=== PATIENT | female | born 1935 | race Caucasian/White ===

== ENCOUNTER 2018-01-26 13:41 | Inpatient (IN) | payer SELFPAY ==
[~2018-01-26] VITALS: Ht 147.3 cm; Wt 38.2 kg
[~2018-01-26 13:41] MED LIST: ASPIR-TRIN325 MG PO; ASPIRIN EC81 M1 PO; BIOTIN300 MC1 PO; CENTRUM1 TA1 PO; FENOFIBRATE145 M1 PO; FISH OIL 500 M1 EAC1 PO; FOLIC ACID 1 MG PO; FOLIC ACID0.8 M2 PO; FUROSEMIDE20 M1 PO; GLUCOSAMINE &1 EAC1 PO; LEVSIN-SL0.125 MG SL; LIDODERM1 EACH TOP; LOPRESSOR 25MG25 MG PO; LOVASTATIN40 M1 PO; MAALOX MAXIMUM355 ML PO; MAGNESIUM OXID400 MG PO; MAGNESIUM250 M2 PO; MASON NATURAL325 MG PO; METOPROLOL TART25 M1 PO; MIRALAX17 GM PO; MOBIC7.5 M1 PO; NAPROSYN500 M1 PO; NATURAL IRON65 MG PO; OMEPRAZOLE20 M2 PO; RECLAST 55 MG/100 M IV; TYLENOL EXTRA500 M2 PO; TYLENOL325 M1 PO; ULTRAM50 M1 PO; VITAMIN C100 M2 PO; VITAMIN C500 M3 PO; VITAMIN D250000 UNIT PO; VITAMIN D32000 UNI1 PO; VITAMIN D50000 IU PO
--- NOTE | 2018-01-26 15:20 | ED NECK/BACK PAIN COMPLAINT ---
History of Present Illness General Chief Complaint: General Adult Stated Complaint: LOWER BACK PAIN RADIATING TO R HIP Source: patient, old records Exam Limitations: poor historian Vital Signs & Intake/Output Vital Signs & Intake/Output Vital Signs Date Time Temp Pulse Resp B/P B/P Pulse O2 O2 Flow FiO2 Mean Ox Delivery Rate 01/26 2238 98.8 69 18 113/57 91 01/26 1930 98.3 70 18 106/54 92 01/26 1345 98.8 72 18 130/59 91 Allergies Coded Allergies: gluten (CELIAC 05/10/17) phenobarbital (HIVES 05/10/17) Reconcile Medications Ascorbic Acid (Vitamin C) (Unknown Strength) TABLET (Unknown Dose) PO DAILY SUPPLEMENT (Reported) Aspirin (Ecotrin*) 81 MG TABLET.DR 1 TAB PO BID HEART HEALTH (Reported) Biotin 300 MCG TABLET 1 TAB PO DAILY SUPPLEMENT (Reported) Cholecalciferol (Vitamin D3) (Vitamin D3) 2,000 UNIT TABLET 1 TAB PO DAILY VITAMIN SUPPORT (Reported) Ergocalciferol (Vitamin D2) (Vitamin D2) 50,000 UNIT CAPSULE 1 CAP PO QTUES SUPPLEMENT (Reported) Fenofibrate Nanocrystallized (Fenofibrate) 145 MG TABLET 1 TAB PO DAILY TRIGLYCERIDES (Reported) Folic Acid 0.8 MG TABLET 1 TAB PO DAILY SUPPLEMENT (Reported) Furosemide 20 MG TABLET 1 TAB PO BID WATER RETENTION (Reported) Gluc 2KCL/Chondr/Antonio Hy/Hy AC (Glucosamine & Chondroitin Cap) 375 MG-300 MG-175 MG-2 MG CAPSULE 1 TAB PO BID SUPPLEMENT (Reported) Hyoscyamine Sulfate (Levsin-Sl) 0.125 MG TAB.SUBL 1-2 TAB SL Q4P PRN abdominal pain Lidocaine (Lidoderm) 5 % ADH..PATCH 1 PAT TOP DAILY PRN back pain may wear up to 12 hours Lovastatin 40 MG TABLET 1 TAB PO DAILY CHOLESTEROL (Reported) with food Mag Hydrox/Al Hydrox/Simeth (Maalox Maximum Strength Susp) 400 MG-400 MG-40 MG/5 ML ORAL.SUSP 15 ML PO Q4P PRN abdominal pain Magnesium Oxide (Magnesium) 250 MG TABLET 1 TAB PO BID SUPPLEMENT (Reported) Metoprolol Tartrate 25 MG TABLET 1 TAB PO BID HEART (Reported) Naproxen (Naprosyn) 500 MG TABLET 1 TAB PO BID PRN back pain [place]-3/Dha/Epa/Fish Oil (Fish Oil 500 MG Softgel) 60 MG-90 MG-500 MG CAPSULE 1 CAP PO DAILY SUPPLEMENT (Reported) Omeprazole 20 MG CAPSULE.DR 1 CAP PO DAILY GI (Reported) Zoledronic Acid (Reclast 5 MG/100 Ml Solution) 5 MG/100 ML INFUS..BTL 1 INJ IV Q365D BONE STRENGTH (Reported) Triage Note: RECEIVED 82 YO FEMALE MALIK FROM HOME. PT RETURNS TODAY WITH REPORT OF MID LOWER BACK PAIN RADIATING TO RIGHT HIP. PT WAS HERE TWICE LAST WEEK FOR SAME AND PRESCRIBED TRAMADOL FOR PAIN WITH SOME RELIEF OF PAIN. PT REPORTS DIFFICULTY GETTING OOB THIS AM. PT REPORTS NO PAIN LYING DOWN, ONLY UPON MOVEMENT OR ATTEMPTIN G TO GET UP. PT USES WALKER FOR AMBULATION. Triage Nurses Notes Reviewed? yes HPI: Patient presents for evaluation of an exacerbation of back pain secondary to compression fractures. Patient states that she was recently in the emergency department for a day for back pain. She is taking narcotic pain relievers but states she is still having the pain to the point where she feels unable to ambulate due to the risk of falling. She is not sure if she might need a rehabilitation program. (Irma RODRIGUEZ,Juwan Sheldon) Past History Travel History Traveled to [place] past 21 day No Medical History Any Pertinent Medical History? see below for history Neurological: dizziness EENT: cataracts (extraction) Cardiovascular: CAD (with coronary fistula), hyperlipidemia, post-operative CO Respiratory: NONE Gastrointestinal: upper GI bleed, diverticulitis with perforation, colostomy and reversal Celiac disease/[place] Hepatic: NONE Renal: urinary tract infection with renolithiasis Musculoskeletal: osteoarthritis, OSTEOPOROSIS Psychiatric: NONE Endocrine: NONE Blood Disorders: NONE Cancer(s): NONE Other Medical Hx: umbilical hernia, questionable history of blood clots History of MRSA: No History of VRE: No History of CDIFF: No Surgical History Surgical History: cholecystectomy, COLOSTOMY WITH REVERSAL bladder procedure Psychosocial History Who do you live with Family Services at Home None What is your primary language Citizen [place] Tobacco Use: Never used Family History Hx Contributory? No (Irma RODRIGUEZ,Juwan Sheldon) Review of Systems Review of Systems Constitutional: Reports: no symptoms. Eyes: Reports: no symptoms. Ears, Nose, Throat, Mouth: Reports: no symptoms. Respiratory: Reports: no symptoms. Cardiovascular: Reports: no symptoms. Gastrointestinal/Abdominal: Reports: no symptoms. Musculoskeletal: Reports: see HPI, back pain. Skin: Reports: no symptoms. Neurological/Psychological: Reports: no symptoms. All Other Systems: Reviewed and Negative (Irma RODRIGUEZ,Juwan Sheldon) Physical Exam Physical Exam Neck: see below Comments: Gen.: Well-nourished, well-developed, no acute respiratory distress. Head: Normocephalic, atraumatic. Eyes: Normal inspection bilaterally Ears: Normal inspection bilaterally Nose: Normal inspection Throat/mouth : Moist mucosa Neck: Supple, full range of motion, no goiter Heart: Regular rate and rhythm, no murmurs rubs or gallops Lungs: Clear to auscultation bilaterally with normal air entry Chest: Nontender Back: Normal range of motion, nontender Abdomen: Soft, nontender, nondistended, normal bowel sounds Extremities: Normal range of motion grossly, equal radial pulses, no cyanosis clubbing or edema, calves nontender, lower extremities are neurovascularly intact. No saddle paresthesias or straight leg raise sign. Neurologic: Cranial nerves grossly intact, speech is clear Skin: warm and dry Psychiatric: Calm, cooperative, no apparent delusions or hallucinations Core Measures CVA/TIA Diagnosis: No (Irma RODRIGUEZ,Juwan Sheldon) Progress Differential Diagnosis: cauda equina syn, herniated disc, myofascial strain, compression fractures, abdominal aortic aneurysm Plan of Care: Orders Procedure Date/time Status Regular Diet 01/27 B Active Regular Diet 01/26 D Complete Add-on Test (ER Only) 01/26 2331 Active EKG 01/26 2239 Active URINALYSIS 01/26 2053 Complete OXYGEN SETUP (GEN) 01/26 2047 Active Saline Lock 01/26 2047 Active Admit to inpatient 01/26 2047 Active Vital Signs 01/26 2047 Active Activity/Ambulation 01/26 2047 Active Code Status 01/26 2047 Active CBC WITHOUT DIFFERENTIAL 01/26 1738 Complete BASIC METABOLIC PANEL 01/26 1738 Complete PT Evaluate & Treat 01/26 1540 Active CASE MANAGEMENT CONSULT 01/26 1540 Active Current Medications Sig/Dillan Start time Last Medication Dose Stop Time Status Admin Ceftriaxone Sodium 1,000 MG ONCE ONE 01/26 2345 UNVr (Rocephin) 01/26 2346 Laboratory Tests 01/26/182054: Urine Color YEL, Urine Clarity CLDY H, Urine pH 7.0, Ur Specific Berger 1.015, Urine Protein NEG, Urine Ketones NEG, Urine Nitrite POS H, Urine Bilirubin NEG, Urine Urobilinogen 0.2, Ur Leukocyte Esterase LARGE H, Ur Microscopic SEDIMENT EXAMINED, Urine RBC 1-3, Urine WBC > 75 H, Ur Epithelial Cells FEW, Urine Crystals 1+ CA OX H, Urine Bacteria PACKD H, Urine Hemoglobin NEG, Urine Glucose NEG 01/26/18 1800: Anion Gap 4 L, Estimated GFR > 60, BUN/Creatinine Ratio 55.0 H, Glucose 98, Calcium 8.4, CBC w Diff NO MAN DIFF REQ, RBC 4.61, MCV 86.5, MCH 28.0, MCHC 32.3 L, RDW 31.3 H, MPV 8.5, Gran % 66.8, Lymphocytes % 20.3 L, Monocytes % 11.8 H, Eosinophils % 0.6, Basophils % 0.5, Absolute Granulocytes 3.6, Absolute Lymphocytes 1.1 L, Absolute Monocytes 0.6, Absolute Eosinophils 0, Absolute Basophils 0 Diagnostic Imaging: Discussed w/RAD: Radiology Read. Radiology Impression: PATIENT: JOO VICENTE PRESENT AGE: 82 PATIENT ACCOUNT NO: [id number] : 37 LOCATION: [facility] ORDERING PHYSICIAN: Juwan Solis MD SERVICE DATE: 01/26/18 EXAM TYPE: RAD - XRY-LUMBOSACRAL SPINE AP & LAT EXAMINATION: XR LUMBOSACRAL SPINE CLINICAL INFORMATION: Low back pain. COMPARISON: Lumbosacral spine radiographs dated . TECHNIQUE: 2 views of the lumbosacral spine were obtained. FINDINGS: There is again severe diffuse osteopenia limiting evaluation for fracture. Chronic L1 compression fracture is again noted. T10 compression fracture is again noted, not appreciably changed on better seen on the prior study. L4 compression fracture is again noted, not appreciably changed. There is axial joint space narrowing in the hips bilaterally. 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 Suture material is again noted and pelvis. IMPRESSION: 1. Limited evaluation of the setting of severe diffuse osteopenia. 2. No appreciable change in the recently identified T10 and L4 compression fractures nor the chronic L1 compression fracture. 3. Axial narrowing of the hip joints bilaterally with right hip protrusio acetabuli. Clinically correlation for underlying rheumatoid arthritis recommended. DICTATED BY: Raad Rajput MD DATE/TIME DICTATED:01/26/181824 SMALL APPLIANCE ASSEMBLY SUPERVISOR:KELVIN DATE/TIME TRANSCRIBED:01/26/181824 CONFIDENTIAL, DO NOT COPY WITHOUT APPROPRIATE AUTHORIZATION. <Electronically signed in Other Vendor System> SIGNED BY: Raad Rajput MD 01/26/18 2398 Comments: Patient had a CT scan with IV contrast late last year which showed no aortic disease. 01/26/2018 7:12:47 PM patient signed out to Dr. 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 (Irma RODRIGUEZ,Juwan Sheldon) Diagnostic Imaging: Viewed by Me: Radiology Read, CT Scan. Discussed w/RAD: Radiology Read, CT Scan. (Tonio Lala MD) Departure Departure Condition: Stable Referrals: Adriana RODRIGUEZ,James Marshall (PCP/Family) Departure Forms: Customer Survey General Discharge Information (Irma RODRIGUEZ,Juwan Sheldon) Departure Disposition: STILL A PATIENT Clinical Impression Primary Impression: Compression fracture Secondary Impressions: UTI (urinary tract infection) Admission Note Spoke With: Ashley Guevara MD Documentation of Exam: Documentation of any treatments & extenuating circumstances including Concerns Regarding Discharge (functional status, medication knowledge or non-compliance, living conditions, etc.) that warrant an admission rather than observation: Analgesia physical therapy spine evaluation medication adjustment ensure safety continuing care discharge planning (Tonio Lala MD)
[2018-01-26 18:13] LABS: ABSOLUTE BASOPHIL COUNT 0 /CUMM (0.0-0.2); ABSOLUTE EOSINOPHIL COUNT 0 /CUMM (0.0-0.7); ABSOLUTE GRANULOCYTE CT 3.6 /CUMM (1.4-6.5); ABSOLUTE LYMPH COUNT 1.1 /CUMM (1.2-3.4); ABSOLUTE MONOCYTE COUNT 0.6 /CUMM (0.10-0.60); BASOPHIL % 0.5 % (0.0-2.0); EOSINOPHIL % 0.6 % (0-5); GRANULOCYTE % 66.8 % (42.2-75.2); HEMATOCRIT 39.9 % (37-47); MEAN CORPUSCULAR HGB CONC 32.3 G/DL (33.0-37.0); MEAN CORPUSCULAR VOLUME 86.5 FL (81.0-99.0); MEAN PLATELET VOLUME 8.5 FL (7.4-10.4); PLATELET COUNT 289 /CUMM (130-400); RBC DISTRIBUTION WIDTH 31.3 % (11.5-14.5); RED BLOOD CELL CT 4.61 /CUMM (4.20-5.40); WHITE BLOOD CELL COUNT 5.4 /CUMM (4.8-10.8)
--- NOTE | 2018-01-26 18:34 | RADIOLOGY REPORT ---
EXAMINATION: XR LUMBOSACRAL SPINE CLINICAL INFORMATION: Low back pain. COMPARISON: Lumbosacral spine radiographs dated 01/24/2018. TECHNIQUE: 2 views of the lumbosacral spine were obtained. FINDINGS: There is again severe diffuse osteopenia limiting evaluation for fracture. Chronic L1 compression fracture is again noted. T10 compression fracture is again noted, not appreciably changed on better seen on the prior study. L4 compression fracture is again noted, not appreciably changed. There is axial joint space narrowing in the hips bilaterally. 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 Suture material is again noted and pelvis. IMPRESSION: 1. Limited evaluation of the setting of severe diffuse osteopenia. 2. No appreciable change in the recently identified T10 and L4 compression fractures nor the chronic L1 compression fracture. 3. Axial narrowing of the hip joints bilaterally with right hip protrusio acetabuli. Clinically correlation for underlying rheumatoid arthritis recommended.
--- NOTE | 2018-01-26 23:18 | CT SCAN REPORT ---
EXAMINATION: CT LUMBAR SPINE WITHOUT CONTRAST CLINICAL INFORMATION: Continued low back pain, difficulty ambulating. COMPARISON: Thoracic spine radiographs dated 01/24/2018 bone survey dated 11/20/2017. CT abdomen and pelvis dated 04/18/2014. TECHNIQUE: Helical non-contrast CT images were obtained through the lumbar spine and 0.625 and 2.5 mm axial reconstructions were reviewed along with sagittal and coronal MPRs. DLP: 139 mGy-cm FINDINGS: There is a redemonstrated chronic L1 compression deformity with stable associated mild focal kyphosis. There is right convex L4 compression deformity which is new from 04/17/2017 but was likely present on the 11/20/2017 bone survey as well as on the more recent 01/24/2018 lumbar spine radiographs. Allowing for comparison across modalities this appears probably stable. There is 65% vertebral body height loss centrally. No paravertebral soft tissue hematoma. A partially visualized exophytic right superior pole lesion is stable from 2013. No hydronephrosis. Diffuse atherosclerotic vascular calcification is noted within the ectatic abdominal aorta. There is mild spinal canal narrowing at L1-L2 bony retropulsion which is stable. There is retropulsion of the superior L4 endplate centrally which also results in mild spinal canal narrowing, new from 04/17/2017. IMPRESSION: 1. Stable chronic L1 compression deformity with mild associated focal kyphosis and bony retropulsion resulting in mild spinal canal narrowing. 2. Biconcave L4 compression deformity with 65% vertebral body height loss centrally. While new from 04/17/2017 and this is likely stable compared with the 11/20/2017 bone survey radiograph allowing for differences between modalities. No paravertebral soft tissue hematoma to suggest an acute fracture. 3. There is mild spinal canal narrowing associated with the L4 compression deformity secondary to retropulsion of the superior L4 endplate centrally.
--- NOTE | 2018-01-26 23:42 | History & Physical ---
Yamilet RODRIGUEZ,Juan 01/26/18 1038: General Information and HPI MD Statement: I have seen and personally examined JOO VICENTE and documented this H&P. The patient is a 82 year old F who presented with a patient stated chief complaint of [intractable back pain]. Source of Information: patient, old records Exam Limitations: poor historian History of Present Illness: Patient is a 89-year-old female with a PMH significant for HTN, HLD, celiac disease, Waldenstrm's macroglobulinemia follows with Dr. Hannah, osteoporosis with multiple osteoporotic vertebral compression fractures, who presents to the [facility] ED complaining of intractable lower back pain. Patient states that she has had chronic back pain mostly mid back pain for the past 67 years. Recently she began developing severe lower back pain as well. She was seen in the [facility] ED 2 days prior to presentation and was sent home with a Lidoderm patch and naproxen. She states that her pain was not well controlled over the past day and that she had been having visual hallucinations which she believes is secondary to her new medication. She states that her back pain is sharp and at most was a 9/10, however it was intermittent. She remains able to ambulate with her walker. She denies any radiation of her pain to her legs, and denies any neurologic symptoms including including numbness, paresthesias, weakness. Allergies/Medications Allergies: Coded Allergies: gluten (CELIAC 05/10/17) phenobarbital (HIVES 05/10/17) Home Med list Ascorbic Acid (Vitamin C) (Unknown Strength) TABLET (Unknown Dose) PO DAILY SUPPLEMENT (Reported) Aspirin (Ecotrin*) 81 MG TABLET.DR 1 TAB PO BID HEART HEALTH (Reported) Biotin 300 MCG TABLET 1 TAB PO DAILY SUPPLEMENT (Reported) Cholecalciferol (Vitamin D3) (Vitamin D3) 2,000 UNIT TABLET 1 TAB PO DAILY VITAMIN SUPPORT (Reported) Ergocalciferol (Vitamin D2) (Vitamin D2) 50,000 UNIT CAPSULE 1 CAP PO QTUES SUPPLEMENT (Reported) Fenofibrate Nanocrystallized (Fenofibrate) 145 MG TABLET 1 TAB PO DAILY TRIGLYCERIDES (Reported) Folic Acid 0.8 MG TABLET 1 TAB PO DAILY SUPPLEMENT (Reported) Furosemide 20 MG TABLET 1 TAB PO BID WATER RETENTION (Reported) Gluc 2KCL/Chondr/Antonio Hy/Hy AC (Glucosamine & Chondroitin Cap) 375 MG-300 MG-175 MG-2 MG CAPSULE 1 TAB PO BID SUPPLEMENT (Reported) Hyoscyamine Sulfate (Levsin-Sl) 0.125 MG TAB.SUBL 1-2 TAB SL Q4P PRN abdominal pain Lidocaine (Lidoderm) 5 % ADH..PATCH 1 PAT TOP DAILY PRN back pain may wear up to 12 hours Lovastatin 40 MG TABLET 1 TAB PO DAILY CHOLESTEROL (Reported) with food Mag Hydrox/Al Hydrox/Simeth (Maalox Maximum Strength Susp) 400 MG-400 MG-40 MG/5 ML ORAL.SUSP 15 ML PO Q4P PRN abdominal pain Magnesium Oxide (Magnesium) 250 MG TABLET 1 TAB PO BID SUPPLEMENT (Reported) Metoprolol Tartrate 25 MG TABLET 1 TAB PO BID HEART (Reported) Naproxen (Naprosyn) 500 MG TABLET 1 TAB PO BID PRN back pain [place]-3/Dha/Epa/Fish Oil (Fish Oil 500 MG Softgel) 60 MG-90 MG-500 MG CAPSULE 1 CAP PO DAILY SUPPLEMENT (Reported) Omeprazole 20 MG CAPSULE.DR 1 CAP PO DAILY GI (Reported) Zoledronic Acid (Reclast 5 MG/100 Ml Solution) 5 MG/100 ML INFUS..BTL 1 INJ IV Q365D BONE STRENGTH (Reported) Past History Travel History Traveled to [place] past 21 day No Medical History Neurological: dizziness EENT: cataracts (extraction) Cardiovascular: CAD (with coronary fistula), hyperlipidemia, post-operative AL Respiratory: NONE Gastrointestinal: upper GI bleed, diverticulitis with perforation, colostomy and reversal Celiac disease/Sprue Hepatic: NONE Renal: urinary tract infection with renolithiasis Musculoskeletal: osteoarthritis, OSTEOPOROSIS Psychiatric: NONE Endocrine: NONE Blood Disorders: NONE Cancer(s): NONE Other Medical Hx: umbilical hernia, questionable history of blood clots History of MRSA: No History of VRE: No History of CDIFF: No Surgical History Surgical History: cholecystectomy, COLOSTOMY WITH REVERSAL bladder procedure Past Family/Social History Family History Relations & Conditions if any Relation not specified for: *No pertinent family history Psychosocial History Where do you live? Home Who Do You Live With? spouse Services at Home: None Primary Language: Estonian Smoking Status: Never Smoked ETOH Use: denies use Illicit Drug Use: denies illicit drug use Functional Ability Ambulation: walker Review of Systems Review of Systems Constitutional: Denies: chills, diaphoresis, fever. EENTM: Denies: blurred vision, double vision, visual changes. Cardiovascular: Denies: chest pain, palpitations, syncope. Respiratory: Denies: cough, short of breath. GI: Denies: abdominal pain, distention, melena, nausea, vomiting. Genitourinary: Denies: dysuria, frequency, hematuria. Musculoskeletal: Reports: see HPI, back pain. Skin: Reports: no symptoms. Neurological/Psychological: Denies: numbness, paresthesia, tingling, weakness. Exam & Diagnostic Data Last 24 Hrs of Vital Signs/I&O Vital Signs Date Time Temp Pulse Resp B/P B/P Pulse O2 O2 Flow FiO2 Mean Ox Delivery Rate 01/27 0110 97.6 65 20 108/47 91 Room Air 01/26 2350 98.6 81 16 115/59 93 Room Air 01/26 2238 98.8 69 18 113/57 91 01/26 1930 98.3 70 18 106/54 92 01/26 1345 98.8 72 18 130/59 91 Intake & Output 01/27 0800 01/27 0000 01/26 1600 Intake Total 320 Output Total Balance 320 Intake, Oral 320 Patient 82 lb 3.01 oz 79 lb 15.99 oz Weight Weight Bed scale Estimated Measurement Method Physical Exam General Appearance Alert, Oriented X3, Cooperative Skin Temp/Moisture Exam: Warm/Dry Sepsis Skin Exam (color): Normal for Ethnicity HEENT abrasion on the nose, pt reports scratching as a nervous habit Cardiovascular Regular Rate, Normal S1, Normal S2 Lungs Clear to Auscultation, Normal Air Movement Abdomen Normal Bowel Sounds, Soft, No Tenderness Neurological Normal Speech, Strength at 5/5 X4 Ext, Normal Tone, Sensation Intact, Cranial Nerves 3-12 NL Extremities No Clubbing, No Cyanosis, No Edema Vascular Normal Pulses, Pulses Symmetrical Last 24 Hrs of Labs/Tej: Laboratory Tests 01/26/182054: Urine Color YEL, Urine Clarity CLDY H, Urine pH 7.0, Ur Specific [place] 1.015, Urine Protein NEG, Urine Ketones NEG, Urine Nitrite POS H, Urine Bilirubin NEG, Urine Urobilinogen 0.2, Ur Leukocyte Esterase LARGE H, Ur Microscopic SEDIMENT EXAMINED, Urine RBC 1-3, Urine WBC > 75 H, Ur Epithelial Cells FEW, Urine Crystals 1+ CA OX H, Urine Bacteria PACKD H, Urine Hemoglobin NEG, Urine Glucose NEG 01/26/18 1800: Anion Gap 4 L, Estimated GFR > 60, BUN/Creatinine Ratio 55.0 H, Glucose 98, Calcium 8.4, Total Bilirubin Pending, Direct Bilirubin Pending, AST Pending, ALT Pending, Alkaline Phosphatase Pending, Total Protein Pending, Albumin Pending, 25-OH Vitamin D Total Pending, CBC w Diff NO MAN DIFF REQ, RBC 4.61, MCV 86.5, MCH 28.0, MCHC 32.3 L, RDW 31.3 H, MPV 8.5, Gran % 66.8, Lymphocytes % 20.3 L , Monocytes % 11.8 H, Eosinophils % 0.6, Basophils % 0.5, Absolute Granulocytes 3.6, Absolute Lymphocytes 1.1 L, Absolute Monocytes 0.6, Absolute Eosinophils 0 , Absolute Basophils 0 Microbiology 01/26 2055 URINE ROUT: Urine Culture - RECD Diagnostic Data EKG Results NSR HR 66, QTc 415 Other Results There is again severe diffuse osteopenia limiting evaluation for fracture. Chronic L1 compression fracture is again noted. T10 compression fracture is again noted, not appreciably changed on better seen on the prior study. L4 compression fracture is again noted, not appreciably changed. There is axial joint space narrowing in the hips bilaterally. 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 Suture material is again noted and pelvis. IMPRESSION: 1. Limited evaluation of the setting of severe diffuse osteopenia. 2. No appreciable change in the recently identified T10 and L4 compression fractures nor the chronic L1 compression fracture. 3. Axial narrowing of the hip joints bilaterally with right hip protrusio acetabuli. Clinically correlation for underlying rheumatoid arthritis recommended. Lumbar spine CT There is a redemonstrated chronic L1 compression deformity with stable associated mild focal kyphosis. There is right convex L4 compression deformity which is new from 04/17/2017 but was likely present on the 11/20/2017 bone survey as well as on the more recent 01/24/2018 lumbar spine radiographs. Allowing for comparison across modalities this appears probably stable. There is 65% vertebral body height loss centrally. No paravertebral soft tissue hematoma. A partially visualized exophytic right superior pole lesion is stable from 2013. No hydronephrosis. Diffuse atherosclerotic vascular calcification is noted within the ectatic abdominal aorta. There is mild spinal canal narrowing at L1-L2 bony retropulsion which is stable. There is retropulsion of the superior L4 endplate centrally which also results in mild spinal canal narrowing, new from 04/17/2017. IMPRESSION: 1. Stable chronic L1 compression deformity with mild associated focal kyphosis and bony retropulsion resulting in mild spinal canal narrowing. 2. Biconcave L4 compression deformity with 65% vertebral body height loss centrally. While new from 04/17/2017 and this is likely stable compared with the 11/20/2017 bone survey radiograph allowing for differences between modalities. No paravertebral soft tissue hematoma to suggest an acute fracture. 3. There is mild spinal canal narrowing associated with the L4 compression deformity secondary to retropulsion of the superior L4 endplate centrally. Assessment/Plan Assessment: Patient is a 89-year-old female with a PMH significant for HTN, HLD, celiac disease, Waldenstrm's macroglobulinemia follows with Dr. Hannah, osteoporosis with osteoporotic compression fractures, who presents to the [facility] ED complaining of intractable lower back pain. Patient has had chronic back pain for 6 or 7 years however the lower back pain onset is more recent and has been worsening. She was recently seen in the ED and given Lidoderm patches and naproxen for the pain with minimal relief. She denies any radiation of her pain or neurologic symptoms associated with it. Lumbar x-ray showed stable T10, L1, and L4 compression fractures, with axial narrowing of the hip joints. Lumbar CT study began at T11 and could not assess the fracture at T10, but noted the L1 and L4 compression fractures with mild spinal canal narrowing at L4. Signs on admission: T 98 RR 18, BP 130/59 pulse ox 91% on room air Lab: WBC 5.4, H/H 12.9/39.9, platelets 289, sodium 140, potassium 4.5, chloride 107, CO2 22, BUN 29, creatinine 0.4 glucose 98, total protein 4.6, albumin 2.3, calcium 8.4, UA: Cloudy, nitrite positive, LE large, pyuria, calcium oxalate crystals, packed bacteria Problem list #Multiple osteoporotic compression fractures and intractable back pain #Asymptomatic bacteriuria #Chronic medical problems including osteoporosis, celiac disease, Waldenstrm's macroglobulinemia, HTN, HLD Plan -Admit to general medicine -Pain is currently well controlled with Lidoderm patch, will manage pain with Lidoderm patch, IV Tylenol, tramadol as needed, ibuprofen as needed -Orthopedic consult placed with the answering service of Dr. Carpio -Neurosurgery consult to be called in the morning for possible need to start Medrol -Patient refused rectal examination, extensive discussion was had about the importance of this examination for diagnosis of potential neurologic complication secondary to spinal compression fracture in stenosis, she showed good understanding of the risks of not performing this examination and refused giving that she did not want to undergo the discomfort as her rationale for foregoing the examination, would reassess her willingness to undergo this examination in the a.m. -patient received 1 dose of Rocephin in the ED, given asymptomatic bacteriuria will watch off for further antibiotics -PT evaluation and treatment -Patient is a relatively poor historian and does not have her medication list on her, confirmed medications in a.m. Diet: Gluten-free diet DVT prophylaxis: Subcutaneous heparin, Alps CODE STATUS: Full code As Ranked By This Provider Problem List: 1. Compression fracture 2. Intractable low back pain Core Measures/Misc (04/29) Acute Coronary Syndrome ACS Diagnosis: No Congestive Heart Failure Congestive Heart Failure Diagnosis No Cerebrovascular Accident CVA/TIA Diagnosis: No VTE (View Protocol) VTE Risk Factors Age>40 No Mechanical VTE Prophylaxis d/t N/A MechProphylax Ordered No VTE Pharm Prophylaxis d/t NA PharmProphylax ordered Sepsis (View protocol) Sepsis Present: No If YES complete Sepsis Event Note If YES complete Sepsis Event Note Darling RODRIGUE[facility] [place] 01/27/18 0044: Core Measures/Misc (04/29) Sepsis (View protocol) If YES complete Sepsis Event Note If YES complete Sepsis Event Note Resident Review Statement Resident Statement: examined this patient, discussed with internal revenue agent, agreed with internal revenue agent Other Findings: 82/F with PMH significant for HTN, HLD, cellulitic disease, Waldenstrm's macroglobulinemia, osteoporosis complicated by multiple compression vertebral fractures, who presented with a cc of intractable back pain. The patient has chronic mid back pain for 6 years, however recently she started to complain of lower back pain. She presented to the ED 2 days ago for the same complain, she was send home on naproxen and lidoderm patch. Her pain did not improve for which she is here today. Currently is denies active pain but eariler the pain was 9/10 , sharp, intermittent, over lower back. She denies any new numbness, tingling, or weakness. Vitals: T 98, BP 130/59, HR in 60s, & O2 91% on RA. CT lumbar showed L1 compression deformity resulting in mild spinal canal narrowing, biconcave or for compression deformity which is new compared to last year but stable compared to November of this year, mild spinal Narrowing Associated with L4 Compression Deformity. Physical Exam, refer to internal revenue agent notes. Assessment: 89-year-old female with extensive past medical history including but not limited to osteoporosis and vertebral compression fracture who presented with severe back pain. CT showed multiple level vertebral compression fractures. The patient denies any new weakness, tingling, or numbness. She is a candidate for surgery however we will ask for orthopedic and neurosurgery consult given the new narrowing seen on CT. The patient strongly refused rectal exam. Problem list -Osteoporosis with multiple level compression fracture led to intractable back pain -Asymptomatic bacteriuria -Celiac sprue -Hypertension -Hyperlipidemia -Waldenstrm's macroglobulinemia. Plan * Admit to general medicine floor * Control probably lidoderm patch, tylenol, ibuprofen, and tramadol * Orthopedic consult and neurosurgery consult * Chambers of antibiotic for asymptomatic bacteriuria * PT evaluation in the morning * Please confirm medication in the morning. -Diet: Gluten-free diet -DVT PPx: SC heparin and Alps -Full code Ismael RODRIGUEZ, [facility] 01/27/18 0527: Core Measures/Misc (04/29) Sepsis (View protocol) If YES complete Sepsis Event Note If YES complete Sepsis Event Note Attending MD Review Statement Attending Statement Attending MD Statement: examined this patient, discuss w/resident/PA/BRIDGE GAME DIRECTOR, agreed w/resident/PA/BRIDGE GAME DIRECTOR, reviewed images, amended to note Attending Assessment/Plan: 89 yo F with h/o HTN, Waldenstrom's macroglobulinemia, osteoporosis, celiac disease, previous L1 compression fracture, was seen in the ER on January 24 for worsening low back pain with lumbar xray suggestive of new compression deformities of T10 and L4. She was able to ambulate with a walker in the ER and hence was deemed safe for home discharged at that point on naproxen with lidoderm patches. She returns today due to worsening mid to low back pain, with difficulty in ambulation. She denies any recent fall or trauma. She is using her pain meds with some relief. She reports using Tramadol but I don't see this on her claim history. She denies urinary or fecal incontinence. She denies tingling / numbness of feet or sciatic like pain. Vitals stable. Neuro: non focal exam. SLR negative. Patient refused rectal exam to assess rectal tone. Labs are essentially unremarkable. UA positive, patient reports urinary frequency but this is chronic. Lumbar Xray: diffuse osteopenia, T10 and L4 compression fractures, chronic L1 fracture, axial narrowing of hip joints b/l. Lumbar spine CT: chronic L1 compression deformity with associated kyphosis and bony retropulsion with mild spinal canal narrowing, L4 compression deformity with 65% body height loss, stable. Mild spinal canal narrowing associated with L4 deformity secondary to retropulsion of superior L4 endplate centrally. EKG: sinus rhythm with no acute ST-T changes. Assessment and plan: 1. Acute on chronic low back pain 2. Multiple compression fractures T10, L4, chronic L1 with underlying severe osteoporosis 3. Asymptomatic bacteriuria - Admit to General medicine - Fall precautions - Check vitamin D, TSH and B12 levels - Pain management with lidoderm path, IV tylenol, motrin and tramadol - Ortho consult - Neurosurgery please review CT images with them for concern for spinal canal narrowing although patient has nonfocal exam, no concern for cord compression, holding off on steroids at this point. - Dedicated CT thoracic spine was not performed by ER, please consider after discussion with Ortho in AM. - PT eval, possible placement - Case management consult - Follow urine cultures, watch off antibiotics for now - Confirm home meds and resume in AM DVT ppx Lovenox. Full code.
[2018-01-27 01:10] VITALS: BP 108/47
--- NOTE | 2018-01-27 01:53 | Admission Certification ---
Admission Certification Certification Statement - As attending physician, I certify that at the time of - admission, based on clinical presentation, severity of - symptoms, need for further diagnostic testing and - therapeutic interventions, and risk of adverse outcomes - without in-hospital treatment, in my clinical assessment, - this patient requires an acute hospital stay for a minimum - of two nights or longer. I have also considered psychsocial - factors such as support system, advanced age, financial - issues, cognitive issues, and failed out-patient treatments, - past re-admission history, safety of patient, and lack of - compliance as applicable. Specific rationale supporting this admission is: Acute on chronic low back pain, compression fracture
[2018-01-27 04:54] VITALS: BP 110/50
--- NOTE | 2018-01-27 08:43 | PN- Housestaff ---
Justin RODRIGUEZ,[place] 01/27/18 0842: Subjective Follow-up For: Back pain Spinal stenosis Compression spinal changes Subjective: She is seen and examined while laying comfortably in bed. She reports doing well with physical therapy today minimal to moderate pain. Does not endorse any increased pain, new radicular pain, bowel or urinary incontinence. She states that when she went to the bathroom she is able to feel and have sensation when wiping herself. Review of Systems Constitutional: Reports: no symptoms. Objective Last 24 Hrs of Vital Signs/I&O Vital Signs Date Time Temp Pulse Resp B/P B/P Pulse O2 O2 Flow FiO2 Mean Ox Delivery Rate 01/27 0454 97.9 60 20 110/50 92 Room Air 01/27 0110 97.6 65 20 108/47 91 Room Air 01/26 2350 98.6 81 16 115/59 93 Room Air 01/26 2238 98.8 69 18 113/57 91 01/26 1930 98.3 70 18 106/54 92 01/26 1345 98.8 72 18 130/59 91 Intake & Output 01/27 1600 01/27 0800 01/27 0000 Intake Total 320 Output Total 100 Balance -100 320 Intake, Oral 320 Output, Urine 100 Patient 37.28 kg Weight Weight Bed scale Measurement Method Physical Exam General Appearance: Alert, Oriented X3, Cooperative Other Physical Findings: Skin Temp/Moisture Exam: Warm/Dry Sepsis Skin Exam (color): Normal for Ethnicity HEENT abrasion on the nose, pt reports scratching as a nervous habit Cardiovascular Regular Rate, Normal S1, Normal S2 Lungs Clear to Auscultation, Normal Air Movement Abdomen Normal Bowel Sounds, Soft, No Tenderness Neurological Normal Speech, Strength at 5/5 X4 Ext, Normal Tone, Sensation Intact, Cranial Nerves 3-12 NL Extremities No Clubbing, No Cyanosis, No Edema Vascular Normal Pulses, Pulses Symmetrical Rectal Exam: Deffered, patient refused. Current Medications: Current Medications Sig/Dillan Start time Last Medication Dose Route Stop Time Status Admin Acetaminophen 1,000 MG Q6H 01/27 0515 01/27 N/A 1 UNIT IV 01/27 6352 1629 Aspirin Buffered 81 MG BID 01/27 0900 AC 01/27 PO 0737 Atorvastatin Calcium 40 MG 1700 01/27 1700 AC 01/27 PO 1628 Ceftriaxone Sodium 1,000 MG ONCE ONE 01/26 2345 DC 01/26 IV 01/26 2346 2344 Ceftriaxone Sodium 0 .STK-MED ONE 01/26 2341 DC .ROUTE Fenofibrate 145 MG DAILY 01/27 900 AC 01/27 PO 0737 Heparin Sodium 5,000 UNIT Q8 01/27 600 AC 01/27 (Porcine) SC 1304 Ibuprofen 200 MG Q6P PRN 01/27 05 AC PO Lidocaine 1 PAT DAILY PRN 01/27 05 AC TOP Metoprolol Tartrate 25 MG BID 01/27 900 AC 01/27 PO 0737 Omeprazole 20 MG DAILY 01/27 09 AC 01/27 PO 0737 Tramadol HCl 50 MG Q6P PRN 01/27 0515 AC 01/27 PO 1555 Assessment/Plan Assessment: 89-year-old lady with an extensive history of osteoporosis with compression fractures, Waldenstrm's macroglobulinemia, senna to [facility] ED with acute on chronic complain of intractable low back pain was somewhat refractory to Lidoderm patches and Naprosyn. No radiculopathy, bowel /urinary incontinence or saddle anestehsia reported. Impression * Intractable back pain * Compression fractures secondary to osteoporosis, located at T10, L4,L1 with mild spinal stenosis. * Osteoporosis * ASymptomatic bacteriuria Plan Continue with pain management with APAP and Lidoderm patches Will refrain as much as possible from opiates and only use if necessary Continue physical therapy For the bacteriuria , will continue to watch offf antibiotics for now as patient is asymptomatic Will check with case management regarding discharge preparation for VNA services We'll continue to follow orthopedic recommendation, as of now conservative management is what has been recommended. CODE STATUS; full DVT prophylaxis: Lovenox Problem List: 1. Intractable low back pain Pain Ratin Pain Location: lower back Pain Goal: Remain pain free Pain Plan: per pathway Tomorrow's Labs & Rationales: none John Paul Ellis 01/27/18 1207: Attending MD Review Statement Attending Statement Attending MD Statement: examined this patient, discuss w/resident/PA/SPEECH PATHOLOGY ASSISTANT, agreed w/resident/PA/SPEECH PATHOLOGY ASSISTANT, discussed with family, reviewed EMR data (avail), discussed with nursing, discussed with case mgmt, reviewed images, amended to note Attending Assessment/Plan: Patient here with acute on chronic back pain. No focal symptoms. No urinary or fecal incontinence. Patient seen by orthopedics which recommned no surgical intervention. Provide pain control with lidocaine patch and tylenol. Follow up urine culture. Obtain PT consult for discharge planning.
--- NOTE | 2018-01-27 09:24 | Cons- Orthopedic ---
General Information and HPI Consulting Request Date of Consult: 01/27/18 Requested By: Ismael RODRIGUEZ,Ashley Reason for Consult: Low back pain, vertebral compression fractures History of Present Illness: 82yo F with history of osteoporosis, chronic back pain, HTN, HL, celiac disease, and Waldenstrom's macroglobulinemia was admitted to [facility] on 01/26/18 for back pain. She was previously seen in the ER on 01/24/18 for similar complaint and discharged with lidoderm patches and naproxen. She has known T10, L1, and L4 vertebral compression fractures. Today, she is seen sitting up in a chair. Denies pain in her back but says she feels "stiff". No radiation of pain, no numbness or tingling. She is confused and asking "to go to her room". Per RN, receiving only tylenol for pain and has been relatively comfortable overnight. Up walking with PT this morning. Uses a walker at baseline. Allergies/Medications Allergies: Coded Allergies: gluten (CELIAC 05/10/17) phenobarbital (HIVES 05/10/17) Home Med List: Ascorbic Acid (Vitamin C) (Unknown Strength) TABLET (Unknown Dose) PO DAILY SUPPLEMENT (Reported) Aspirin (Ecotrin*) 81 MG TABLET.DR 1 TAB PO BID HEART HEALTH (Reported) Biotin 300 MCG TABLET 1 TAB PO DAILY SUPPLEMENT (Reported) Cholecalciferol (Vitamin D3) (Vitamin D3) 2,000 UNIT TABLET 1 TAB PO DAILY VITAMIN SUPPORT (Reported) Ergocalciferol (Vitamin D2) (Vitamin D2) 50,000 UNIT CAPSULE 1 CAP PO QTUES SUPPLEMENT (Reported) Fenofibrate Nanocrystallized (Fenofibrate) 145 MG TABLET 1 TAB PO DAILY TRIGLYCERIDES (Reported) Folic Acid 0.8 MG TABLET 1 TAB PO DAILY SUPPLEMENT (Reported) Furosemide 20 MG TABLET 1 TAB PO BID WATER RETENTION (Reported) Gluc 2KCL/Chondr/Antonio Hy/Hy AC (Glucosamine & Chondroitin Cap) 375 MG-300 MG-175 MG-2 MG CAPSULE 1 TAB PO BID SUPPLEMENT (Reported) Hyoscyamine Sulfate (Levsin-Sl) 0.125 MG TAB.SUBL 1-2 TAB SL Q4P PRN abdominal pain Lidocaine (Lidoderm) 5 % ADH..PATCH 1 PAT TOP DAILY PRN back pain may wear up to 12 hours Lovastatin 40 MG TABLET 1 TAB PO DAILY CHOLESTEROL (Reported) with food Mag Hydrox/Al Hydrox/Simeth (Maalox Maximum Strength Susp) 400 MG-400 MG-40 MG/5 ML ORAL.SUSP 15 ML PO Q4P PRN abdominal pain Magnesium Oxide (Magnesium) 250 MG TABLET 1 TAB PO BID SUPPLEMENT (Reported) Metoprolol Tartrate 25 MG TABLET 1 TAB PO BID HEART (Reported) Naproxen (Naprosyn) 500 MG TABLET 1 TAB PO BID PRN back pain [place]-3/Dha/Epa/Fish Oil (Fish Oil 500 MG Softgel) 60 MG-90 MG-500 MG CAPSULE 1 CAP PO DAILY SUPPLEMENT (Reported) Omeprazole 20 MG CAPSULE.DR 1 CAP PO DAILY GI (Reported) Zoledronic Acid (Reclast 5 MG/100 Ml Solution) 5 MG/100 ML INFUS..BTL 1 INJ IV Q365D BONE STRENGTH (Reported) Current Medications: Current Medications Sig/Dillan Start time Last Medication Dose Route Stop Time Status Admin Acetaminophen 1,000 MG Q6H 01/27 0515 AC 01/27 N/A 1 UNIT IV 01/27 2329 0526 Acetaminophen 0 .STK-MED ONE 01/26 1617 DC PO Acetaminophen 975 MG ONCE ONE 01/26 1615 DC 01/26 PO 01/26 1616 1624 Aspirin Buffered 81 MG BID 01/27 09 AC 01/27 PO 0737 Atorvastatin Calcium 40 MG 1700 01/27 1700 AC PO Ceftriaxone Sodium 1,000 MG ONCE ONE 01/26 2345 DC 01/26 IV 01/26 2346 2344 Ceftriaxone Sodium 0 .STK-MED ONE 01/26 2341 DC .ROUTE Fenofibrate 145 MG DAILY 01/27 09 AC 01/27 PO 0737 Heparin Sodium 5,000 UNIT Q8 01/27 0600 AC 01/27 (Porcine) SC 0527 Ibuprofen 200 MG Q6P PRN 01/27 0515 AC PO Lidocaine 1 PAT DAILY PRN 01/27 0515 AC TOP Metoprolol Tartrate 25 MG BID 01/27 0900 AC 01/27 PO 0737 Omeprazole 20 MG DAILY 01/27 0900 AC 01/27 PO 0737 Tramadol HCl 50 MG Q6P PRN 01/27 0515 AC PO Past History Medical History Blood Transfusion Hx: Yes Neurological: NONE EENT: cataracts (extraction) Cardiovascular: CAD (with coronary fistula), hyperlipidemia, post-operative NV Respiratory: NONE Gastrointestinal: upper GI bleed, diverticulitis with perforation, colostomy and reversal Celiac disease/Sprue Hepatic: NONE Renal: urinary tract infection with renolithiasis Musculoskeletal: osteoarthritis, OSTEOPOROSIS CHRONIC BACK PAIN Psychiatric: NONE Endocrine: NONE Blood Disorders: NONE Cancer(s): WALDENSTROM- 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 Home Who Do You Live With? spouse Services at Home: None Primary Language: Lithuanian Smoking Status: Never Smoked ETOH Use: denies use Illicit Drug Use: denies illicit drug use Functional Ability Ambulation: walker Review of Systems Review of Systems: +confusion No shortness of breath, no other complaints. Exam & Diagnostic Data Vital Signs and I&O Vital Signs Date Time Temp Pulse Resp B/P B/P Pulse O2 O2 Flow FiO2 Mean Ox Delivery Rate 01/27 0454 97.9 60 20 110/50 92 Room Air 01/27 0110 97.6 65 20 108/47 91 Room Air 01/26 2350 98.6 81 16 115/59 93 Room Air 01/26 2238 98.8 69 18 113/57 91 01/26 1930 98.3 70 18 106/54 92 01/26 1345 98.8 72 18 130/59 91 Intake & Output 01/27 1600 01/27 0800 01/27 0000 01/26 1600 01/26 0800 01/26 0000 Intake Total 320 Output Total 100 Balance -100 320 Intake, Oral 320 Output, Urine 100 Patient 82 lb 3 oz 79 lb 15.99 oz Weight Weight Bed scale Estimated Measurement Method Physical Exam: Patient seen and examined. Sitting up chair with pillows behind back; kyphosis. No tenderness to palpation over the midline thoracic or lumbar spine. Mild tenderness with palpation of the right paraspinal muscles; no tenderness on the left. No step-offs appreciated. Low back pain with bilateral active hip flexion. No pain or radicular symptoms with seated straight leg raise. Intact knee flexion/extension, ankle DF/PF, and EHL/FHL SILT over bilateral lower legs and feet. Feet warm, well-perfused. Last 24 Hours of Labs: Laboratory Tests 01/26 1800 Chemistry Sodium (137 - 145 mmol/L) 140 Potassium (3.5 - 5.1 mmol/L) 4.5 Chloride (98 - 107 mmol/L) 107 Carbon Dioxide (22 - 30 mmol/L) 29 Anion Gap (5 - 16) 4 L BUN (7 - 17 mg/dL) 22 H Creatinine (0.5 - 1.0 mg/dL) 0.4 L Estimated GFR (>60 ml/min) > 60 BUN/Creatinine Ratio (7 - 25 %) 55.0 H Glucose (65 - 99 mg/dL) 98 Calcium (8.4 - 10.2 mg/dL) 8.4 Total Bilirubin (0.2 - 1.3 mg/dL) 0.3 Direct Bilirubin (< 0.4 mg/dL) 0.3 AST (14 - 36 U/L) 24 ALT (9 - 52 U/L) 34 Alkaline Phosphatase (<127 U/L) 33 Total Protein (6.3 - 8.2 g/dL) 4.6 L Albumin (3.5 - 5.0 g/dL) 2.3 L Vitamin B12 (239 - 931 pg/mL) 399 25-OH Vitamin D Total (30 - 100 ng/ml) 42.4 TSH (0.270 - 4.200 uIU/mL) 3.280 Hematology CBC w Diff NO MAN DIFF REQ WBC (4.8 - 10.8 /CUMM) 5.4 RBC (4.20 - 5.40 /CUMM) 4.61 Hgb (12.0 - 16.0 G/DL) 12.9 Hct (37 - 47 %) 39.9 MCV (81.0 - 99.0 FL) 86.5 MCH (27.0 - 31.0 PG) 28.0 MCHC (33.0 - 37.0 G/DL) 32.3 L RDW (11.5 - 14.5 %) 31.3 H Plt Count (130 - 400 /CUMM) 289 MPV (7.4 - 10.4 FL) 8.5 Gran % (42.2 - 75.2 %) 66.8 Lymphocytes % (20.5 - 51.1 %) 20.3 L Monocytes % (1.7 - 9.3 %) 11.8 H Eosinophils % (0 - 5 %) 0.6 Basophils % (0.0 - 2.0 %) 0.5 Absolute Granulocytes (1.4 - 6.5 /CUMM) 3.6 Absolute Lymphocytes (1.2 - 3.4 /CUMM) 1.1 L Absolute Monocytes (0.10 - 0.60 /CUMM) 0.6 Absolute Eosinophils (0.0 - 0.7 /CUMM) 0 Absolute Basophils (0.0 - 0.2 /CUMM) 0 Urines Urine Color (YEL,AMB,STR) YEL Urine Clarity (CLEAR) CLDY H Urine pH (5.0 - 8.0) 7.0 Ur Specific Gleason (1.001 - 1.035) 1.015 Urine Protein (NEG,<30 MG/DL) NEG Urine Ketones (NEG) NEG Urine Nitrite (NEG) POS H Urine Bilirubin (NEG) NEG Urine Urobilinogen (0.1 - 1.0 EU/dl) 0.2 Ur Leukocyte Esterase (NEG) LARGE H Ur Microscopic SEDIMENT EXAMINED Urine RBC (0 - 5 /HPF) 1-3 Urine WBC (0 - 2 /HPF) > 75 H Ur Epithelial Cells (NONE,FEW) FEW Urine Crystals 1+ CA OX H Urine Bacteria (NEG/NONE) PACKD H Urine Hemoglobin (NEG) NEG Urine Glucose (N MG/DL) NEG Imaging Results: XR lumbar spine (01/24/18): There is relatively diffuse demineralization of bone therefore the diagnostic accuracy of this examination is limited. There are new compression deformities involving the T10 and L4 vertebral bodies when compared to the recent lumbar spine CT scan from 04/17/2017. A chronic compression deformity of the L1 vertebral body is redemonstrated. CT lumbar spine (01/26/18): 1. Stable chronic L1 compression deformity with mild associated focal kyphosis and bony retropulsion resulting in mild spinal canal narrowing. 2. Biconcave L4 compression deformity with 65% vertebral body height loss centrally. While new from 04/17/2017 and this is likely stable compared with the 11/20/2017 bone survey radiograph allowing for differences between modalities. No paravertebral soft tissue hematoma to suggest an acute fracture. 3. There is mild spinal canal narrowing associated with the L4 compression deformity secondary to retropulsion of the superior L4 endplate centrally. Assessment/Plan Assessment/Plan A: 82yo F with osteoporosis, known vertebral compression fractures, HTN, HL, celiac disease, and Waldenstroms macroglobulenemia admitted to [facility] with back pain. She denies radiculopathy. Patient is currently comfortable, sitting up in chair. Per RN, walked with PT earlier today. She is confused and asking to go to her room; no pain medications aside from tylenol. P: Continue conservative management of back pain with lidoderm patches and tylenol. Recommend holding narcotics as patient is currently comfortable but also confused. No indication for surgical intervention or further imaging at this time. Mobilization with PT, walker for assistance. Patient may follow up as an outpatient for further evaluation as needed. Consult Acknowledgment - Thank you for your consult request. Attending MD Review Statement Attending Statement Attending MD Statement: examined this patient, reviewed EMR data (avail), discussed w/nursing, reviewed images
[2018-01-27 15:48] VITALS: BP 92/54
[2018-01-27 23:22] VITALS: BP 118/58
[2018-01-28 03:00] VITALS: BP 107/68
[2018-01-28 03:24] VITALS: BP 107/68
--- NOTE | 2018-01-28 04:30 | RADIOLOGY REPORT ---
EXAMINATIONS: LEFT HAND 3 VIEWS AND LEFT HUMERUS 2 VIEWS AND LEFT FOREARM 2 VIEWS CLINICAL INFORMATION: Pain after fall. COMPARISON: None. TECHNIQUE: PA, lateral, oblique views of the left hand were obtained. AP and lateral views of the left humerus are provided. AP and lateral views of the left forearm are provided. FINDINGS: There are no fractures or dislocations. There is no significant soft tissue swelling. There is no displacement of the pronator fat pad. There is no elbow joint effusion. Degenerative change in the left hand is manifested by narrowing to the DIP joints as well as the first carpal metacarpal joint and first MTP joint. IMPRESSION: Degenerative change within the left hand as stated above. No evidence for acute injury to the left hand, forearm or humerus.
--- NOTE | 2018-01-28 04:31 | RADIOLOGY REPORT ---
EXAMINATION: CHEST 1 VIEW CLINICAL INFORMATION: Pain after fall. COMPARISON: January 24, 2018. TECHNIQUE: An AP view of the chest is provided. FINDINGS: The cardiac silhouette is not enlarged. The mediastinal and hilar contours are stable with prominence to the right hilar region vasculature. There is stable scarring within the mid right lung. There are neither pleural effusions nor pneumothoraces. There are no consolidations. The osseous structures are stable. IMPRESSION: Stable chest radiograph without evidence of acute disease.
--- NOTE | 2018-01-28 04:33 | RADIOLOGY REPORT ---
EXAMINATION: SHOULDER 3 VIEWS, LEFT CLINICAL INFORMATION: Pain after fall. COMPARISON: None. TECHNIQUE: AP views of the left shoulder were obtained in internal and external rotation. In addition, a Y view was obtained. FINDINGS: There are no fractures or dislocations. The humeral head is seated within a well-formed glenoid. The AC joint is intact. IMPRESSION: Unremarkable left shoulder radiographs.
--- NOTE | 2018-01-28 04:36 | CT SCAN REPORT ---
EXAMINATION: CT HEAD WITHOUT CONTRAST CLINICAL INFORMATION: Trauma to head. Fall. COMPARISON: November 01, 2016. TECHNIQUE: Contiguous helical images of the brain were obtained without IV contrast. Multiplanar reconstructions were performed. DLP: 696 mGy-cm. FINDINGS: There are no pathologic extra-axial fluid collections. The lateral, third, fourth ventricles are prominent, though stable, age-appropriate and concordant with the appearance of the sulci. There is no evidence for acute intraparenchymal hemorrhage or infarct. There is periventricular low-attenuation indicative of small vessel disease. There is neither mass nor mass effect. There is no shift of midline structures. The paranasal sinuses and mastoid air cells are clear. There are no osseous lesions. IMPRESSION: No evidence for acute intracranial injury. Stable age-appropriate appearance of the brain.
--- NOTE | 2018-01-28 05:49 | Event Note ---
Event Note Event Note: Situation: Rapid response called due to fall Background: Patient was admitted for intractable back pain secondary to osteoporotic compression fractures of the spine. She had been placed in a Crenshaw due to confusion, disorientation, and this attempted unsafe ambulation Assessment/recommendation: Hospital rapid response team responded to the call, patient was found on the floor next to her bed, she had removed herself from the Crenshaw and attempted to ambulate to the bathroom and slipped and fell. She reported to nurses who are the first respond that she had hit her head and was also complaining of left wrist arm and shoulder pain. She was moved back to her bed, vitals were obtained (T 97.6, P110, RR 18, BP 107/68, pulse ox 93% on room air). Patient was oriented only to person, did not know time or place. Cardiac auscultation revealed normal S1-S2 with no murmurs, rubs, or gallops, lungs are clear to auscultation with good air movement bilaterally. She had good strength in all 4 extremities and sensation was intact. Stat EKG was performed which showed normal sinus rhythm with no acute ST-T changes. She was sent for stat noncontrast head CT, left wrist, left forearm, left humerus, left shoulder x-rays. Labs were ordered including CBC, BEP, troponin. A one-to-one safety monitor was ordered for the patient. Chata , Dr. Guevara, was informed of these events and agreed with this plan.
[2018-01-28 07:12] VITALS: BP 126/62
--- NOTE | 2018-01-28 07:16 | PN- Housestaff ---
Bay RODRIGUEZ,[facility] 01/28/18 0715: Subjective Follow-up For: Back Pain elevated troponins compression fractures Subjective: patient seen and examined. complains of left hip pain and back pain. denies any chest pain or difficulty breathing. Review of Systems Constitutional: Reports: no symptoms. Objective Last 24 Hrs of Vital Signs/I&O Vital Signs Date Time Temp Pulse Resp B/P B/P Pulse O2 O2 Flow FiO2 Mean Ox Delivery Rate 01/28 0948 93 100/58 01/28 0712 97.6 95 18 126/62 91 01/28 0324 97.6 110 18 107/68 01/28 0300 97.6 110 18 107/68 93 01/27 2322 97.9 72 20 118/58 91 Room Air 01/27 2022 72 118/58 01/27 1548 97.7 74 18 92/54 92 Room Air Intake & Output 01/28 1600 01/28 0800 01/28 0000 Intake Total 120 60 Output Total 50 Balance 70 60 Intake, Oral 120 60 Output, Urine 50 Physical Exam General Appearance: Alert, Cooperative, Mild Distress, oriented x 0 Skin: No Rashes, No Breakdown Skin Temp/Moisture Exam: Warm/Dry Sepsis Skin Exam (color): Normal for Ethnicity HEENT: small wound on nose Cardiovascular: Normal S1, Normal S2, No Murmurs Lungs: Normal Air Movement Abdomen: Soft, No Tenderness Neurological: Normal Speech Extremities: No Edema Last 24 Hrs of Lab/Tej Results Last 24 Hrs of Labs/Mics: Laboratory Tests 01/28/18 0752: Anion Gap 7, Estimated GFR > 60, BUN/Creatinine Ratio 33.3 H, Troponin I 0.25 * H, CBC w Diff NO MAN DIFF REQ, RBC 4.62, MCV 85.1, MCH 28.1, MCHC 33.1, RDW 30.6 H, MPV 9.5, Gran % 80.1 H, Lymphocytes % 10.5 L, Monocytes % 9.0, Eosinophils % 0.2, Basophils % 0.2, Absolute Granulocytes 6.1, Absolute Lymphocytes 0.8 L, Absolute Monocytes 0.7 H, Absolute Eosinophils 0, Absolute Basophils 0 Assessment/Plan Assessment: 89-year-old female with a PMH significant for HTN, HLD, celiac disease, Waldenstrm's macroglobulinemia follows with Dr. Orell, osteoporosis with multiple osteoporotic vertebral compression fractures, who presented to the [facility] ED complaining of intractable lower back pain. Assessment: 1. Lower back pain 2. Elevated Troponins 3. UTI 4. Compression fractures located at T10, L4,L1 5. History of Osteoporosis 6. History of dementia Plan: * Transfer patient to telemetry for elevated troponins * Trend troponins and EKGs * Cardiology consult * Consider Echo * IV Ceftriaxone for UTI. She is growing E.coli in her urine. She is not complaining of urinary symptoms but she is a unreliable historian with her demetia * Pain control with Lidoderm patch and tylenol 650mg q8 prn. * Xray of left hip to r/o fracture. She did have a fall last night (see event note) * Diet: Gluten free diet * DVT Prophylaxis: SC Lovenox * Code: Full Code Problem List: 1. Intractable low back pain Pain Ratin Pain Location: none Pain Goal: Remain pain free Pain Plan: none Tomorrow's Labs & Rationales: none Dante RODRIGUEZ,Karen 01/28/18 1138: Attending MD Review Statement Attending Statement Attending MD Statement: examined this patient, discuss w/resident/PA/APPLICATIONS ARCHITECT, agreed w/resident/PA/APPLICATIONS ARCHITECT, reviewed EMR data (avail), discussed with nursing, discussed with case mgmt, reviewed images, amended to note Attending Assessment/Plan: Patient seen and examined, she was completing of pain in her left hip and left knee. Patient apparently fell early in the morning. All her imaging does not show any evidence of any acute fracture. Patient's troponin did rise to 0.25. Vital Signs Date Time Temp Pulse Resp B/P B/P Pulse O2 O2 Flow FiO2 Mean Ox Delivery Rate 01/28 0948 93 100/58 01/28 0712 97.6 95 18 126/62 91 01/28 0324 97.6 110 18 107/68 01/28 0300 97.6 110 18 107/68 93 01/27 2322 97.9 72 20 118/58 91 Room Air 01/27 2022 72 118/58 01/27 1548 97.7 74 18 92/54 92 Room Air on exam; awake, nad. cv; s1,s2, rrr, +systolic murmur. resp; clear abd; soft, nt, bs+ ext; no edema Laboratory Tests 01/28 0752 Chemistry Sodium (137 - 145 mmol/L) 136 L Potassium (3.5 - 5.1 mmol/L) 4.1 Chloride (98 - 107 mmol/L) 104 Carbon Dioxide (22 - 30 mmol/L) 25 Anion Gap (5 - 16) 7 BUN (7 - 17 mg/dL) 10 Creatinine (0.5 - 1.0 mg/dL) 0.3 L Estimated GFR (>60 ml/min) > 60 BUN/Creatinine Ratio (7 - 25 %) 33.3 H Troponin I (< 0.11 ng/ml) 0.25 *H Hematology CBC w Diff NO MAN DIFF REQ WBC (4.8 - 10.8 /CUMM) 7.6 RBC (4.20 - 5.40 /CUMM) 4.62 Hgb (12.0 - 16.0 G/DL) 13.0 Hct (37 - 47 %) 39.3 MCV (81.0 - 99.0 FL) 85.1 MCH (27.0 - 31.0 PG) 28.1 MCHC (33.0 - 37.0 G/DL) 33.1 RDW (11.5 - 14.5 %) 30.6 H Plt Count (130 - 400 /CUMM) 270 MPV (7.4 - 10.4 FL) 9.5 Gran % (42.2 - 75.2 %) 80.1 H Lymphocytes % (20.5 - 51.1 %) 10.5 L Monocytes % (1.7 - 9.3 %) 9.0 Eosinophils % (0 - 5 %) 0.2 Basophils % (0.0 - 2.0 %) 0.2 Absolute Granulocytes (1.4 - 6.5 /CUMM) 6.1 Absolute Lymphocytes (1.2 - 3.4 /CUMM) 0.8 L Absolute Monocytes (0.10 - 0.60 /CUMM) 0.7 H Absolute Eosinophils (0.0 - 0.7 /CUMM) 0 Absolute Basophils (0.0 - 0.2 /CUMM) 0 A/P; 82 y/o F with pmh sig for osteoporosis with compression fractures, Waldenstrm's macroglobulinemia admitted with intractable acute on chronic low back pain, UTI and now troponins are positive after patient fell early in the morning. At this point patient is transferred to telemetry. She will need a cardiology evaluation and likely an echo. She will be started on ceftriaxone. She is growing gram-negative rods in the urine and the urine culture will need to be followed. Currently she is on Tylenol, tramadol for pain management. She will be working with physical therapy. Patient already on aspirin, beta leonidas, statin. She is on Lovenox for DVT prophylaxis.
[2018-01-28 08:35] LABS: ABSOLUTE BASOPHIL COUNT 0 /CUMM (0.0-0.2); ABSOLUTE EOSINOPHIL COUNT 0 /CUMM (0.0-0.7); ABSOLUTE GRANULOCYTE CT 6.1 /CUMM (1.4-6.5); ABSOLUTE LYMPH COUNT 0.8 /CUMM (1.2-3.4); ABSOLUTE MONOCYTE COUNT 0.7 /CUMM (0.10-0.60); BASOPHIL % 0.2 % (0.0-2.0); EOSINOPHIL % 0.2 % (0-5); GRANULOCYTE % 80.1 % (42.2-75.2); HEMATOCRIT 39.3 % (37-47); MEAN CORPUSCULAR HGB 28.1 PG (27.0-31.0); MEAN CORPUSCULAR HGB CONC 33.1 G/DL (33.0-37.0); MEAN CORPUSCULAR VOLUME 85.1 FL (81.0-99.0); MEAN PLATELET VOLUME 9.5 FL (7.4-10.4); RBC DISTRIBUTION WIDTH 30.6 % (11.5-14.5); RED BLOOD CELL CT 4.62 /CUMM (4.20-5.40)
--- NOTE | 2018-01-28 09:25 | Patient Discharge Instructions ---
See Addendum Discharge Instructions General Discharge Information You were seen/treated for: Pain management for back pain Special Instructions: -Please follow up with your PCP. -Please follow up with Dr. Llamas within 2 weeks after discharge for staple removal and radiographs and then at 2 months and 4 months for radiographs. -Dressing changes qD. -Physical therapy with wightbearing as tolerated. -PT and progress toward supervised walker assisted ambulation as tolerated. -If mobilization is difficult then staple removal and initial radiographs (AP/ LAT left hip) can be performed at rehabilitation facility and radiographs sent to Dr. Llamas for review. Diet Continue normal diet: Yes Activity Full Activity/No Limits: Yes Activity Self Limited: Yes Acute Coronary Syndrome Inclusion Criteria At DC or during hospital stay patient has or had the following: ACS DIAGNOSIS No Discharge Core Measures Meds if any: Prescribed or Continued at Discharge Meds if any: NOT Prescribed or Continued at Discharge Congestive Heart Failure Inclusion Criteria At DC or during hospital stay patient has or had the following: CHF DIAGNOSIS No Discharge Core Measures Meds if any: Prescribed or Continued at Discharge Meds if any: NOT Prescribed or Continued at Discharge Cerebrovascular accident Inclusion Criteria At DC or during hospital stay patient has or had the following: CVA/TIA Diagnosis No Discharge Core Measures Meds if any: Prescribed or Continued at Discharge Meds if any: NOT Prescribed or Continued at Discharge Venous thromboembolism Inclusion Criteria VTE Diagnosis No VTE Type NONE VTE Confirmed by (Test) NONE Discharge Core Measures - Per Current guidelines, there needs to be overlap - treatment for the first 5 days of Warfarin therapy. - If discharged on Warfarin prior to 5 days of - overlap therapy, the patient will need to be - assessed for post discharge needs including - *Post discharge parental anticoagulation - *Warfarin and/or parental anticoagulation education - *Follow up date to check INR post discharge At least 5 days overlap therapy as Inpatient No Meds if any: Prescribed or Continued at Discharge Note: Overlap Therapy is Warfarin and Anticoagulant Meds if any: NOT Prescribed or Continued at Discharge
[2018-01-28 09:33] LABS: WHITE BLOOD CELL COUNT 7.6 /CUMM (4.8-10.8)
[2018-01-28 09:34] LABS: PLATELET COUNT 270 /CUMM (130-400)
[2018-01-28] MEDS ORDERED: TYLENOL325 M1 PO (09:34)
[2018-01-28 14:00] VITALS: BP 110/64
--- NOTE | 2018-01-28 15:56 | Cons- Cardiology ---
General Information and HPI Consulting Request Date of Consult: 01/28/18 Requested By: Ismael RODRIGUEZ,Ashley History of Present Illness: Stephen is a 82 year old female with history of hypertension, dyslipidemia and NSTEMI which occurred in a perioperative setting. She has a known coronary fistula. This patient also has recurrent vertebral fractures and reported a fall at the time of her last office visit with injury to her sternum. She returned to the hospital due to back pain related to a recurrent vertebral fracture. On this admission she was discovered to have positive cardiac enzymes discovered after a rapid response call for falling. The patient denies precordial chest pain, pressure or tightness and at her current level of activity which is minimal is without shortness of breath. Finally, she denies lightheadedness or palpitations. She continues to lose weight. She can walk a couple steps with a walker and supervision at her baseline. It may be recalled that this patient had issues with gallstones in the cystic duct with stent placement and a drain. She has tolerated these problems without any associated cardiac complications. Last year she underwent reversal of a colostomy which went well without problems. To review this patient's history she was admitted to [facility] in March of 2013 for evaluation of abdominal pain and was discovered to have a colonic perforation. She subsequently underwent a sigmoid colon resection with colostomy. Following surgery she had shortness or breath with orthopnea, bilateral pleural effusions and positive troponin. Workup included an echo which showed an EF of 55% with impaired LV relaxation, mild mitral and tricuspid regurgitation and mild to moderate pulmonary hypertension. A cardiac catheterization was also pursued which disclosed a fistulous connection between the first diagonal branch and the left ventricle. There also appeared to be a fistulous connection between the posterolateral branch of the right coronary artery and the left ventricle. In consideration of the above it was felt that the shunt of oxygenated blood away from the cardiac muscle to the left venticular cavity resulted in her NSTEMI in the setting of increased physiologic stress. She was therfore started of beta blockers. In regard to the remainder of her coronary anatomy the left main is normal, the LAD has a 30% nonflow limiting mid lesion and is tortuous, the left circumflex is tortuous and patent and the RCA is dominant and patent Allergies/Medications Allergies: Coded Allergies: gluten (CELIAC 05/10/17) phenobarbital (HIVES 05/10/17) Home Med List: Acetaminophen (Tylenol) 325 MG TABLET 2 TAB PO Q8 PRN Pain Ascorbic Acid (Vitamin C) 100 MG TABLET 1 TAB PO DAILY Supplement (Reported) Aspirin (Ecotrin*) 81 MG TABLET. 1 TAB PO BID HEART HEALTH (Reported) Biotin 300 MCG TABLET 1 TAB PO DAILY SUPPLEMENT (Reported) Cholecalciferol (Vitamin D3) (Vitamin D3) 2,000 UNIT TABLET 1 TAB PO DAILY VITAMIN SUPPORT (Reported) Ergocalciferol (Vitamin D2) (Vitamin D2) 50,000 UNIT CAPSULE 1 CAP PO QTUES SUPPLEMENT (Reported) Fenofibrate Nanocrystallized (Fenofibrate) 145 MG TABLET 1 TAB PO DAILY TRIGLYCERIDES (Reported) Folic Acid 0.8 MG TABLET 1 TAB PO DAILY SUPPLEMENT (Reported) Furosemide 20 MG TABLET 1 TAB PO BID WATER RETENTION (Reported) Gluc 2KCL/Chondr/Antonio Hy/Hy AC (Glucosamine & Chondroitin Cap) 375 MG-300 MG-175 MG-2 MG CAPSULE 1 TAB PO BID SUPPLEMENT (Reported) Hyoscyamine Sulfate (Levsin-Sl) 0.125 MG TAB.SUBL 1-2 TAB SL Q4P PRN abdominal pain Lidocaine (Lidoderm) 5 % ADH..PATCH 1 PAT TOP DAILY PRN back pain may wear up to 12 hours Lovastatin 40 MG TABLET 1 TAB PO DAILY CHOLESTEROL (Reported) with food Mag Hydrox/Al Hydrox/Simeth (Maalox Maximum Strength Susp) 400 MG-400 MG-40 MG/5 ML ORAL.SUSP 15 ML PO Q4P PRN abdominal pain Magnesium Oxide (Magnesium) 250 MG TABLET 1 TAB PO BID SUPPLEMENT (Reported) Metoprolol Tartrate 25 MG TABLET 1 TAB PO BID HEART (Reported) Naproxen (Naprosyn) 500 MG TABLET 1 TAB PO BID PRN back pain [place]-3/Dha/Epa/Fish Oil (Fish Oil 500 MG Softgel) 60 MG-90 MG-500 MG CAPSULE 1 CAP PO DAILY SUPPLEMENT (Reported) Omeprazole 20 MG CAPSULE. 1 CAP PO DAILY GI (Reported) Zoledronic Acid (Reclast 5 MG/100 Ml Solution) 5 MG/100 ML INFUS..BTL 1 INJ IV Q365D BONE STRENGTH (Reported) Review of Systems Review of Systems: A twelve point review of systems is unremarkable. 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 Home Who Do You Live With? spouse Services at Home: None Primary Language: Turkmen Smoking Status: Never Smoked ETOH Use: denies use Illicit Drug Use: denies illicit drug use Functional Ability Ambulation: walker Exam & Diagnostic Data Vital Signs and I&O Vital Signs Date Time Temp Pulse Resp B/P B/P Pulse O2 O2 Flow FiO2 Mean Ox Delivery Rate 01/28 1400 98.4 78 20 110/64 94 01/28 1216 Room Air 01/28 0948 93 100/58 01/28 0712 97.6 95 18 126/62 91 01/28 0324 97.6 110 18 107/68 01/28 0300 97.6 110 18 107/68 93 01/27 2322 97.9 72 20 118/58 91 Room Air 01/27 2022 72 118/58 Intake & Output 01/28 1600 01/28 0800 01/28 0000 01/27 1600 01/27 0800 01/27 0000 Intake Total 280 120 60 600 320 Output Total 300 50 100 Balance -20 70 60 600 -100 320 Intake, IV 30 100 Intake, Oral 250 120 60 500 320 Number 1 0 Bowel Movements Output, Urine 300 50 100 Patient 82 lb 3 oz Weight Weight Bed scale Measurement Method Physical Exam: General: WD/thin female in NAD; alert and oriented x 3 HEENT: NC/AT, PERRL, EOMI Neck: no JVD, no carotid bruit Heart: RRR with 3/6 systolic murmur and +ve S4 Lungs: clear bilaterally anteriorly Abdomen: soft, NT, +ve bowel sounds Extremities: no edema Assessment/Plan Assessment/Plan This patient has minor obstructive CAD as per her last cardiac catheterization. 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 In the past, she has does well at moderate levels of activity despite this. The patient has now ruled in for a small NSTEMI which is a type 2 vent. I do not have a high suspition of a ruptured intracoronary plaque. I recommended that she remain on a beta leonidas to prevent tachycardia. We can consider the need for Nitraates but I am not inclined to prescribe this class of medications at this time due to a borderline BP and her absence of chest pain. Continue aspirin and a statin. Follow cardiac enzyes until they peak and obtain an echocardiogram. Would also have patient on oxygen 2L by MI. Consult Acknowledgment - Thank you for your consult request.
--- NOTE | 2018-01-28 17:07 | RADIOLOGY REPORT ---
EXAMINATION: XR HIP, LEFT CLINICAL INFORMATION: Left hip pain. Rule out fracture. COMPARISON: Left hip films dated 01/24/2018 and pelvis film dated 01/07/2015. TECHNIQUE: Frontal and crosstable lateral views of the left hip. of the left hip. FINDINGS: Evaluation on the crosstable lateral view is limited due to overlapping structures. Marked osteopenia is seen. No definite acute fracture or dislocation is appreciated. The femoral head is located within the acetabulum. There is significant superomedial joint space narrowing, with mild sclerosis and cystic changes across the joint. Degenerative changes as seen at the sacroiliac joint. Pubic symphysis is intact. Bowel anastomotic suture line is seen in the mid pelvis. IMPRESSION: Limited exam. Diffuse osteopenia. No definite acute fracture or dislocation. Moderate degenerative changes in the left hip joint.
[2018-01-28 22:29] VITALS: BP 96/52
[2018-01-29 07:06] VITALS: BP 94/60
--- NOTE | 2018-01-29 07:17 | PN- Housestaff ---
Helena RODRIGUEZ,Susanna 01/29/18 0717: Subjective Follow-up For: Back Pain elevated troponins compression fractures Tele-Events Since Last Visit: No over night events Subjective: pt was seen and examined , stable vital signs, stillC/O of pain inthe left hip Review of Systems Constitutional: Reports: see HPI. Objective Last 24 Hrs of Vital Signs/I&O Vital Signs Date Time Temp Pulse Resp B/P B/P Pulse O2 O2 Flow FiO2 Mean Ox Delivery Rate 01/29 1125 Room Air 01/29 0925 94/60 01/29 0706 98.1 80 18 94/60 92 Room Air 01/28 2229 97.2 78 20 96/52 90 01/28 2118 66 88/58 Intake & Output 01/29 1600 01/29 0800 01/29 0000 Intake Total 480 120 240 Output Total 175 150 Balance 480 -55 90 Intake, Oral 480 120 240 Number 1 Bowel Movements Output, Urine 175 150 Patient 86 lb 5 oz Weight Physical Exam General Appearance: Alert, Oriented X3, Cooperative, No Acute Distress HEENT: Atraumatic, PERRLA, EOMI, Mucous Membr. moist/pink Neck: Supple, No JVD Cardiovascular: Normal S1, Normal S2 Lungs: Clear to Auscultation Abdomen: Normal Bowel Sounds, Soft, No Tenderness Neurological: Normal Speech, Strength at 5/5 X4 Ext, Normal Tone, Sensation Intact, Cranial Nerves 3-12 NL Extremities: No Clubbing, No Cyanosis, No Edema Vascular: Normal Pulses Assessment/Plan Assessment: 89-year-old female with a PMH significant for HTN, HLD, celiac disease, Waldenstrm's macroglobulinemia follows with Dr. Hannah, osteoporosis with multiple osteoporotic vertebral compression fractures, who [facility] ED complaining of intractable lower back pain. Assessment: 1. Lower back pain 2. Elevated Troponins 3. UTI 4. Compression fractures located at T10, L4,L1 5. History of Osteoporosis 6. History of dementia Plan: * Transfer patient to telemetry for elevated troponins * troponins trended down and no EKGs changes * Cardiology recomm apprecited * Consider Echo * IV Ceftriaxone for UTI. She is growing E.coli in her urine. She is not complaining of urinary symptoms but she is a unreliable historian with her demetia * Pain control with Lidoderm patch and tylenol 650mg q8 prn. * Xray of left hip r/o fracture. pt still c/o of hip pain will obtain CT left hip tomorrow ( the pt had barium for swallow eval and CT wouldn't be accurate for Ct to be done today * Diet: Gluten free diet * DVT Prophylaxis: SC Lovenox * Code: Full Code Problem List: 1. Intractable low back pain Pain Ratin Pain Location: N/A Pain Goal: Remain pain free Pain Plan: Pathway Tomorrow's Labs & Rationales: CBC BEP CalebJohn Paul wilson 01/29/18 1059: Attending MD Review Statement Attending Statement Attending MD Statement: examined this patient, discuss w/resident/PA/ASSEMBLER PIANO, agreed w/resident/PA/ASSEMBLER PIANO, discussed with family, reviewed EMR data (avail), discussed with nursing, discussed with case mgmt, reviewed images, amended to note Attending Assessment/Plan: Patricia seen/examined bedside. Patient transferred from [facility] to telemetry for positive cardiac enzymes likley type 2 HI. Cardiology appreciated. ECHO pending. No chest pain this morning. She c/o hip pain after fall. Xray hip no acute fracture. Might benefit from CT hip. She is willing to work with PT and wants to go home. She has few episodes of confusion and sun downing. Start on fall precautions. DVT prophyalxis
--- NOTE | 2018-01-29 12:40 | RADIOLOGY REPORT ---
EXAMINATION: XR MODIFIED BARIUM SWALLOW CLINICAL INFORMATION: Dysphagia. COMPARISON: None. TECHNIQUE: A modified barium swallow was performed with speech pathologist in attendance. Pur?e, nectar thick, thin, bread, and melon consistencies were given to the patient and the swallowing mechanism was observed fluoroscopically with several spot films taken using the last image hold feature. FLUOROSCOPY TIME: 1 minute 16 seconds. FINDINGS: With all consistencies, the oropharyngeal phase of swallowing is normal with no laryngeal or nasopharyngeal aspiration seen. Mild pooling of contrast in the vallecula and piriform sinuses is seen with the thin liquids. No significant pooling of contrast is noted with the other consistencies. IMPRESSION: Moderate pooling of contrast in the vallecula and piriform sinuses with the thin liquids. Otherwise unremarkable exam. Speech pathologist assessment issued separately.
[2018-01-29 14:50] VITALS: BP 88/48
--- NOTE | 2018-01-29 17:58 | PN- Cardiology ---
Subjective Subjective: * Patient complains of back pain with moving but no precordial chest pain, shortness of breath, lightheadedness or palpitations. * sinus rhythm * cardiac enzymes are coming down after a very small rise. Objective Vital Signs and I&Os Vital Signs Date Time Temp Pulse Resp B/P B/P Pulse O2 O2 Flow FiO2 Mean Ox Delivery Rate 01/29 1450 98.2 77 18 88/48 91 Room Air 01/29 1125 Room Air 01/29 0925 94/60 01/29 0706 98.1 80 18 94/60 92 Room Air 01/28 2229 97.2 78 20 96/52 90 01/28 2118 66 88/58 Intake & Output 01/29 1600 01/29 0800 01/29 0000 01/28 1600 01/28 0800 01/28 0000 Intake Total 480 120 240 280 120 60 Output Total 175 150 300 50 Balance 480 -55 90 -20 70 60 Intake, IV 30 Intake, Oral 480 120 240 250 120 60 Number 1 1 Bowel Movements Output, Urine 175 150 300 50 Patient 86 lb 5.01 oz 86 lb 5 oz Weight Physical Exam: General: WD/thin female in NAD; alert and oriented x 3 HEENT: NC/AT, PERRL, EOMI Neck: no JVD, no carotid bruit Heart: RRR with 3/6 systolic murmur and +ve S4 Lungs: clear bilaterally anteriorly Abdomen: soft, NT, +ve bowel sounds Extremities: no edema Assessment/Plan Assessment/Plan * This patient has minor obstructive CAD as per her last cardiac catheterization. 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 In the past, she has does well at moderate levels of activity despite this. The patient has now ruled in for a small NSTEMI which is a type 2 event. I do not have a high suspicion of a ruptured intracoronary plaque. I recommended that she remain on a beta leonidas to prevent tachycardia. We can consider the need for Nitrates but I am not inclined to prescribe this class of medications at this time due to a borderline BP and her absence of chest pain. Continue aspirin and a statin. Obtain an echocardiogram. Continue telemetry? Yes
[2018-01-29 18:57] VITALS: BP 80/44
[2018-01-29 21:18] VITALS: BP 100/46
[2018-01-30 05:48] VITALS: BP 108/58
--- NOTE | 2018-01-30 07:13 | ECHOCARDIOGRAM REPORT ---
JOO VICENTE Age: 82 : 1935 Gender: F Exam Date: 01/29/2018 19:20 Exam Location: [place] Ht (in): 58 Wt (lb): 86 BSA: 1.26 BP: 94 / 60 Ordering Physician: Susanna Malik MD Referring Physician: Christiano Quintero MD, PhD Technologist: Leslee Villasenor [facility] Room Number: [id number] Indications: CHEST PAIN Rhythm: Sinus Technical Quality: adequate FINDINGS Left Ventricle Normal left ventricular size, wall thickness and systolic function with no obvious regional wall motion abnormalities. Diastolic filling pattern is consistent with impaired LV relaxation. The ejection fraction is visually estimated at 70%. Right Ventricle The right ventricle is normal in size and function. Right Atrium The right atrium is normal in size. Left Atrium The left atrium is normal in size. The interatrial septum is intact. Mitral Valve The mitral valve is normal in structure and function. There is mild mitral regurgitation. Aortic Valve Structurally normal aortic valve without significant sclerosis or stenosis. There is mild aortic regurgitation. Tricuspid Valve The tricuspid valve is normal in structure and function. There is mild tricuspid regurgitation. Pulmonary artery systolic pressure is severely elevated to 59mmHg. Pulmonic Valve Structurally normal pulmonic valve. There is no pulmonic regurgitation. Pericardium Normal pericardium without effusion. No pleural effusion. Great Vessels Normal aortic root dimension. The aortic arch and great vessels are well seen and are normal. CONCLUSIONS 1. Normal EF of 70% with impaired LV relaxation. 2. Mild mitral regurgitation. 3. Mild tricuspid regurgitation. 4. Mild aortic insufficiency. 5. Moderate to severe pulmonary hypertension. Christiano Quintero M.D. (Electronically Signed) Final Date: 30 January 2018 07:13 MEASUREMENTS (Male / Female) Normal Values 2D ECHO LV Diastolic Diameter PLAX 2.7 cm 4.2 - 5.9 / 3.9 - 5.3 cm LV Systolic Diameter PLAX 1.5 cm 2.1 - 4.0 cm LV Fractional Shortening PLAX 44.4 % 25 - 46 % LV Ejection Fraction 2D Teich 77.6 % IVS Diastolic Thickness 0.9 cm LVPW Diastolic Thickness 1.0 cm LV Relative Wall Thickness 0.7 RV Internal Dim ED PLAX 3.8 cm 1.9 - 3.8 cm LVOT Diameter 1.9 cm Aortic Root Diameter 2.8 cm LA Systolic Diameter LX 3.6 cm 3.0 - 4.0 / 2.7 - 3.8 cm LA Volume 37.0 cm 18 - 58 / 22 - 52 cm DOPPLER AV Peak Velocity 139.0 cm/s AV Peak Gradient 7.7 mmHg AV Mean Velocity 94.0 cm/s AV Mean Gradient 4.0 mmHg AV Velocity Time Integral 25.5 cm LVOT Peak Velocity 107.0 cm/s LVOT Peak Gradient 4.6 mmHg LVOT Mean Velocity 70.4 cm/s LVOT Mean Gradient 2.0 mmHg LVOT Velocity Time Integral 24.4 cm LVOT Stroke Volume 69.2 cm AV Area Cont Eq vti 2.7 cm AV Area Cont Eq pk 2.2 cm MV Peak Velocity 113.0 cm/s MV Peak Gradient 5.1 mmHg MV Mean Velocity 64.7 cm/s MV Mean Gradient 2.0 mmHg Mitral E Point Velocity 58.2 cm/s Mitral A Point Velocity 91.8 cm/s Mitral E to A Ratio 0.6 MV PHT Velocity 83.4 cm/s MV Deceleration [place] 321.0 cm/s MV Pressure Half Time 77.9 ms MV Area PHT 2.8 cm MV Deceleration Time 296.0 ms TR Peak Velocity 368.0 cm/s TR Peak Gradient 54.2 mmHg Right Atrial Pressure 5.0 mmHg Pulmonary Artery Systolic Pressu 59.2 mmHg Right Ventricular Systolic Press 59.2 mmHg PV Peak Velocity 108.0 cm/s PV Peak Gradient 4.7 mmHg PV Mean Velocity 74.4 cm/s PV Mean Gradient 3.0 mmHg PV Velocity Time Integral 16.8 cm LV E' Lateral Velocity 9.3 cm/s Mitral E to LV E' Lateral Ratio 6.2 LV E' Septal Velocity 7.0 cm/s Mitral E to LV E' Septal Ratio 8.4
--- NOTE | 2018-01-30 07:26 | PN- Housestaff ---
See Addendum Helena RODRIGUEZ,Susanna 01/30/18 0726: Subjective Follow-up For: Hip pain ,back Pain elevated troponins-resolved compression fractures Tele-Events Since Last Visit: Normal sinus rhythm, 7080, no overnight events Subjective: Patient was seen and examined, she continues to complain of pain in the left hip , CT showed minimally displaced comminuted left hip fracture, will obtain also consult, stable vital signs Review of Systems Constitutional: Reports: see HPI. Objective Last 24 Hrs of Vital Signs/I&O Vital Signs Date Time Temp Pulse Resp B/P B/P Pulse O2 O2 Flow FiO2 Mean Ox Delivery Rate 01/30 1110 92 Room Air 01/30 0836 99 108/58 01/30 0800 Nasal 2.0L Cannula 01/30 0548 97.8 77 18 108/58 88 01/29 2118 98.0 79 18 100/46 92 Room Air 01/29 1857 80/44 01/29 1450 98.2 77 18 88/48 91 Room Air 01/29 1125 Room Air Intake & Output 01/30 1600 01/30 0800 01/30 0000 Intake Total 60 370 Output Total Balance 60 370 Intake, IV 250 Intake, Oral 60 120 Number 0 Bowel Movements Patient 78 lb 5 oz Weight Physical Exam General Appearance: Alert, Oriented X3, Cooperative, No Acute Distress HEENT: Atraumatic, PERRLA, EOMI, Mucous Membr. moist/pink Neck: Supple, No JVD Cardiovascular: Normal S1, Normal S2, No Murmurs Lungs: Clear to Auscultation Abdomen: Normal Bowel Sounds, Soft, No Tenderness Neurological: Normal Speech, Strength at 5/5 X4 Ext, Normal Tone, Sensation Intact, Cranial Nerves 3-12 NL Extremities: No Clubbing, No Cyanosis, No Edema Assessment/Plan Assessment: 89-year-old female with a PMH significant for HTN, HLD, celiac disease, Waldenstrm's macroglobulinemia follows with Dr. Hannah, osteoporosis with multiple osteoporotic vertebral compression fractures, who presented to the [facility] ED complaining of intractable lower back pain. Assessment: 1.Intertrochanteric left femur fracture 2. Lower back pain 3. Elevated Troponins 4. UTI 5. Compression fractures located at T10, L4,L1 6. History of Osteoporosis 7. History of dementia Plan: * Continue to monitor on telemetry for elevated troponins * troponins trended down and no EKGs changes * Cardiology recomm apprecited * Orthopedic consult appreciated * Echocardiogram showed normal ejection fraction of 70% with impaired LV relaxation, mild mitral regurg, tricuspid regurg, aortic regurg, moderate to severe pulmonary hypertension * Continue to monitor off antibiotics * Pain control with Lidoderm patch and tylenol 650mg q8 prn. * Xray of left hip r/o fracture. pt still c/o of hip pain * Diet: Gluten free diet * DVT Prophylaxis: SC Lovenox * Code: Full Code Problem List: 1. Intractable low back pain 2. Compression fracture 3. Hip fracture, left Pain Ratin Pain Location: Left hip Pain Goal: Pain 4 or less Pain Plan: Pathway Tomorrow's Labs & Rationales: CBC CalebJohn Paul wilson 01/30/18 1100: Attending MD Review Statement Attending Statement Attending MD Statement: examined this patient, discuss w/resident/PA/MARKETING ANALYTICS SPECIALIST, agreed w/resident/PA/MARKETING ANALYTICS SPECIALIST, discussed with family, reviewed EMR data (avail), discussed with nursing, discussed with case mgmt, reviewed images, amended to note Attending Assessment/Plan: Patinet seen/examined bedside. Patient here in telemetry for cardiac enzymes likley type 2 [place]. Cardiology appreciated. ECHO with no RWMA. No chest pain. She c/o hip pain after fall. Xray hip no acute fracture. CT hip with minimally displaced communited fracture of left hip with small effusion. orhtopedics consult. Contnue pain control. Provide lidocaine patch for back pain. She is willing to work with PT and wants to go home. Continue fall precautions. DVT prophyalxis
--- NOTE | 2018-01-30 09:58 | CT SCAN REPORT ---
CT LOWER EXTREMITY WITHOUT CONTRAST, LEFT CLINICAL INFORMATION: Fracture of the left hip. Left hip pain after falling. COMPARISON: Left hip radiographs 01/28/2018. TECHNIQUE: A multidetector CT acquisition of the left hip is obtained without contrast. Multiplanar reformats are acquired and utilized for image interpretation. FINDINGS: There is a comminuted minimally displaced intertrochanteric fracture of the proximal left femur primarily associated with the greater trochanter. No additional acute fractures are identified. There are moderate degenerative changes involving the left hip joint. There is a small left hip joint effusion IMPRESSION: - There is a comminuted minimally displaced intertrochanteric fracture of the proximal left femur primarily associated with the greater trochanter. - There are moderate degenerative changes involving the left hip joint. There is a small left hip joint effusion
[2018-01-30 14:54] VITALS: BP 100/50
--- NOTE | 2018-01-30 15:12 | PN- Cardiology ---
Subjective Subjective: * Patient is more alert. No chest discomfort or shortness of breath. * A CT scan perfomed due to left hip pain disclosed a left hip fracture. * sinus rhythm Objective Vital Signs and I&Os Vital Signs Date Time Temp Pulse Resp B/P B/P Pulse O2 O2 Flow FiO2 Mean Ox Delivery Rate 01/30 1454 98.6 78 16 100/50 95 Nasal Cannula 01/30 1110 92 Room Air 01/30 0836 99 108/58 01/30 0800 Nasal 2.0L Cannula 01/30 0548 97.8 77 18 108/58 88 01/29 2118 98.0 79 18 100/46 92 Room Air 01/29 1857 80/44 Intake & Output 01/30 1600 01/30 0800 01/30 0000 01/29 1600 01/29 0800 01/29 0000 Intake Total 620 60 370 480 120 240 Output Total 175 150 Balance 620 60 370 480 -55 90 Intake, IV 250 Intake, Oral 620 60 120 480 120 240 Number 1 0 1 Bowel Movements Output, Urine 175 150 Patient 78 lb 5 oz 86 lb 5.01 oz 86 lb 5 oz Weight Physical Exam: General: WD/thin female in NAD; alert and oriented x 3 HEENT: NC/AT, PERRL, EOMI Neck: no JVD, no carotid bruit Heart: RRR with 3/6 systolic murmur and +ve S4 Lungs: clear bilaterally anteriorly Abdomen: soft, NT, +ve bowel sounds Extremities: no edema Assessment/Plan Assessment/Plan * This patient has minor obstructive CAD as per her last cardiac catheterization. 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 In the past, she has done well at moderate levels of activity despite this. The patient has now ruled in for a small NSTEMI which is a type 2 event. I suspect that in the setting of sedation for pain and physiologic stress she had some supply demand mismatch causing a minimal rise in cardiac enzymes. I do not have a high suspicion of a ruptured intracoronary plaque. I recommended that she remain on a beta leonidas to prevent tachycardia. Her EF by echocardiography was normal. Continue aspirin and her statin. * This patient has a left hip fracture which ideally would be surgically repaired. I do not think this patient has any significant flow limiting CAD and she is chest pain free with a normal EF. She is cleared for surgery from a cardiac standpoint. Continue telemetry? Yes
[2018-01-31 06:50] VITALS: BP 112/70
--- NOTE | 2018-01-31 07:07 | PN- Housestaff ---
[place] RODRIGUEZ,Susanna 01/31/18 0706: Subjective Follow-up For: Hip pain ,back Pain elevated troponins-resolved compression fractures Tele-Events Since Last Visit: Normal sinus rhythm, 67, 0.08, 0.14 Subjective: Patient was seen and examined at bedside, continues to complain of pain in the left hip, n.p.o. at midnight, on IV fluids in anticipation of her hip surgery today Review of Systems Constitutional: Reports: see HPI. Objective Last 24 Hrs of Vital Signs/I&O Vital Signs Date Time Temp Pulse Resp B/P B/P Pulse O2 O2 Flow FiO2 Mean Ox Delivery Rate 01/31 0824 75 112/70 01/31 0800 94 Nasal 2.0L Cannula 01/31 0650 98.7 75 20 112/70 94 Nasal Cannula 01/31 0000 Nasal 2.0L Cannula 01/30 2136 98.3 80 20 96 Nasal Cannula 01/30 2035 76 110/60 01/30 1600 95 Nasal 2.0L Cannula 01/30 1530 Room Air 01/30 1454 98.6 78 16 100/50 95 Nasal Cannula 01/30 1445 88 Room Air 01/30 1110 92 Room Air Intake & Output 01/31 1600 01/31 0800 01/31 0000 Intake Total 600 360 Output Total Balance 600 360 Intake, IV 600 Intake, Oral 360 Number 2 1 Bowel Movements Patient 79 lb 6 oz Weight Weight Bed scale Measurement Method Physical Exam General Appearance: Alert, Oriented X3, Cooperative, No Acute Distress Neck: Supple, No JVD Cardiovascular: Normal S1, Normal S2, No Murmurs Lungs: Clear to Auscultation Abdomen: Normal Bowel Sounds, Soft Neurological: Normal Speech Extremities: No Clubbing, No Cyanosis, No Edema Assessment/Plan Assessment: 89-year-old female with a PMH significant for HTN, HLD, celiac disease, Waldenstrm's macroglobulinemia follows with Dr. Hannah, osteoporosis with multiple osteoporotic vertebral compression fractures, who presented to [facility] ED complaining of intractable lower back pain. Assessment: 1.Intertrochanteric left femur fracture 2. Lower back pain 3. Elevated Troponins 4. UTI 5. Compression fractures located at T10, L4,L1 6. History of Osteoporosis 7. History of dementia Plan: * Continue to monitor on telemetry for elevated troponins * troponins trended down and no EKGs changes * Cardiology recomm apprecited * Orthopedic consult appreciated * Echocardiogram showed normal ejection fraction of 70% with impaired LV relaxation, mild mitral regurg, tricuspid regurg, aortic regurg, moderate to severe pulmonary hypertension * Continue to monitor off antibiotics * She will be going for hip surgery today * Pain control with Lidoderm patch and tylenol 650mg q8 prn. * Diet: N.p.o. for hip surgery * DVT Prophylaxis: SC Lovenox * Code: Full Code Problem List: 1. Hip fracture, left 2. Compression fracture Pain Ratin Pain Location: left hip Pain Goal: Remain pain free Pain Plan: pathway Tomorrow's Labs & Rationales: cbc\ bep John Paul Ellis 01/31/18 1114: Attending MD Review Statement Attending Statement Attending MD Statement: examined this patient, discuss w/resident/PA/QUALITY CONTROL TECHNICIAN, agreed w/resident/PA/QUALITY CONTROL TECHNICIAN, discussed with family, reviewed EMR data (avail), discussed with nursing, discussed with case mgmt, reviewed images, amended to note Attending Assessment/Plan: Patient with c/o hip pain and no new complaints. Patient goign to OR for orthopedic procedure and hip surgery. Her back pain is controlled. She is encouraged to use incentive spirometry frequently. Her vitals remain stable. Orthopedics and cardiology appreicated. DVT prophyalxis as per ortho.
[2018-01-31 07:49] LABS: PT 11.3 SEC (9.4-12.5); PTT 30 SEC (25-37)
[2018-01-31 08:00] LABS: ABSOLUTE BASOPHIL COUNT 0 /CUMM (0.0-0.2); ABSOLUTE EOSINOPHIL COUNT 0 /CUMM (0.0-0.7); ABSOLUTE GRANULOCYTE CT 3.8 /CUMM (1.4-6.5); ABSOLUTE LYMPH COUNT 0.9 /CUMM (1.2-3.4); ABSOLUTE MONOCYTE COUNT 0.6 /CUMM (0.10-0.60); BASOPHIL % 0.4 % (0.0-2.0); EOSINOPHIL % 0.8 % (0-5); GRANULOCYTE % 70.9 % (42.2-75.2); HEMATOCRIT 34.8 % (37-47); MEAN CORPUSCULAR HGB CONC 32.3 G/DL (33.0-37.0); MEAN CORPUSCULAR VOLUME 86.9 FL (81.0-99.0); MEAN PLATELET VOLUME 9.2 FL (7.4-10.4); PLATELET COUNT 278 /CUMM (130-400); RBC DISTRIBUTION WIDTH 29.9 % (11.5-14.5); RED BLOOD CELL CT 4.01 /CUMM (4.20-5.40); WHITE BLOOD CELL COUNT 5.4 /CUMM (4.8-10.8)
--- NOTE | 2018-01-31 11:45 | Cons- Orthopedic ---
General Information and HPI Consulting Request Date of Consult: 01/30/18 Requested By: John Paul Ellis MD Reason for Consult: Left non-displaced intertrochanteric hip fracture Source of Information: patient, family, old records Exam Limitations: clinical condition (motion limited by pain/fx) History of Present Illness: Stephen Pink is an 82 y/o frail WF with history of osteoporosis, chronic back pain, multiple chronic and subacute appearing osteoporotic compression fractures , hypertension, hyperlipidemia, celiac disease, and Waldenstrom's macroglobulinemia who was admitted to [facility] on 01/26/18 for back pain and diagnosed with recent (likely acute versus subacute on chronic) thoracolumbar compression fractures T10, L1, and L4. She was originally admitted and seen for Ortho consult regarding her vertebral compression fractures. She is now being seen for a new and distinct problem and consultation regarding left hip intertrochanteric fracture which occured in a fall from bed following patient noncompliance with family approved restrained bed rest. She has longstanding history of osteoporosis and some of her vertebral compression fractures may also be chronic. She was recently seen in the ER on for similar back complaints and has been treated with lidoderm patches and naproxen at home. With this treatment she had been a very limited but independent walker ambulator at home with only mild confusion by both patient and report. Her limited treatment was adequate for her baseline symptoms although not optimal for intermittently severe episodes of pain which occurred daily but were self-limiting. 1-2 weeks ago her pain increased without specific injury, event or activity and became more consistently intolerable until she could no longer mobilize and was even having pain at rest at which point she came to the hospital ER for evaluation. She was admitted, evaluated radiologically with the above findings and ortho consultation was performed which ruled out the need for significant acute treatment (surgery, procedural treatment or bracing) and recommended continuation of supportive care (topical and oral medication) which had been working previously. Her pain was sufficiently severe that she continued to require analgesic medication contributing to (along with other factors) moderate disorientation. Her persistent pain, need for pain medication, disorientaton and fall risk prompted the primary admitting team to order bed rest with restraints. In the grain sacker of HD #2 (01/28/2018) the patient evidently was able to get out of her [place] restraint and attempted to get out of bed without any ambulatory aide presumably to go to the bathroom. She was found on the floor by her nurse almost immediately after the event and was lifted back into bed without any other injury, event or significant complaint. She was carefully evaluated by medicine with clinical trauma and medicine evaluations as well as radiologic assessments as indicated. Her primary complaint was left hip pain and radiologic workup ultimately demonstrated an intertrochanteric nondisplaced hip fracture. Her other more minor areas of injury were unremarkable. On history from the patient with assistance from her today she seems quite oriented and is able to localize and describe symptoms. She is not signiifcantly confused and contributes appropriately to the evaluation as well as to the decision-making process regarding management and treatment. She is not currently in retraints. She complains of left hip pain although she is tolerating lying on that side currently. She reports persistent but unchanged lower back pain without radiation or worsening since the fall. She is actaully requiring less pain medication despite this new injury since the back pain was the symptom necessitating medication most acutely and this seems to be better controlled since admission. No radiation of pain or neurological symptoms. Past medical and surgical history, medications, allergies, social history, family history and pansystem review of systems were obtained primarily from previous EMR records and briefly confirmed for this evaluation without any significant additions, deletions or modificiations. Allergies/Medications Allergies: Coded Allergies: gluten (CELIAC 05/10/17) phenobarbital (HIVES 05/10/17) Home Med List: Acetaminophen (Tylenol) 325 MG TABLET 2 TAB PO Q8 PRN Pain Ascorbic Acid (Vitamin C) 100 MG TABLET 1 TAB PO DAILY Supplement (Reported) Aspirin (Ecotrin*) 81 MG TABLET.DR 1 TAB PO BID HEART HEALTH (Reported) Biotin 300 MCG TABLET 1 TAB PO DAILY SUPPLEMENT (Reported) Cholecalciferol (Vitamin D3) (Vitamin D3) 2,000 UNIT TABLET 1 TAB PO DAILY VITAMIN SUPPORT (Reported) Ergocalciferol (Vitamin D2) (Vitamin D2) 50,000 UNIT CAPSULE 1 CAP PO QTUES SUPPLEMENT (Reported) Fenofibrate Nanocrystallized (Fenofibrate) 145 MG TABLET 1 TAB PO DAILY TRIGLYCERIDES (Reported) Folic Acid 0.8 MG TABLET 1 TAB PO DAILY SUPPLEMENT (Reported) Furosemide 20 MG TABLET 1 TAB PO BID WATER RETENTION (Reported) Gluc 2KCL/Chondr/Antonio Hy/Hy AC (Glucosamine & Chondroitin Cap) 375 MG-300 MG-175 MG-2 MG CAPSULE 1 TAB PO BID SUPPLEMENT (Reported) Hyoscyamine Sulfate (Levsin-Sl) 0.125 MG TAB.SUBL 1-2 TAB SL Q4P PRN abdominal pain Lidocaine (Lidoderm) 5 % ADH..PATCH 1 PAT TOP DAILY PRN back pain may wear up to 12 hours Lovastatin 40 MG TABLET 1 TAB PO DAILY CHOLESTEROL (Reported) with food Mag Hydrox/Al Hydrox/Simeth (Maalox Maximum Strength Susp) 400 MG-400 MG-40 MG/5 ML ORAL.SUSP 15 ML PO Q4P PRN abdominal pain Magnesium Oxide (Magnesium) 250 MG TABLET 1 TAB PO BID SUPPLEMENT (Reported) Metoprolol Tartrate 25 MG TABLET 1 TAB PO BID HEART (Reported) Naproxen (Naprosyn) 500 MG TABLET 1 TAB PO BID PRN back pain [place]-3/Dha/Epa/Fish Oil (Fish Oil 500 MG Softgel) 60 MG-90 MG-500 MG CAPSULE 1 CAP PO DAILY SUPPLEMENT (Reported) Omeprazole 20 MG CAPSULE.DR 1 CAP PO DAILY GI (Reported) Zoledronic Acid (Reclast 5 MG/100 Ml Solution) 5 MG/100 ML INFUS..BTL 1 INJ IV Q365D BONE STRENGTH (Reported) Current Medications: Current Medications Sig/Dillan Start time Last Medication Dose Route Stop Time Status Admin Acetaminophen 650 MG Q8 01/28 0855 AC 01/31 PO 0509 Aspirin Buffered 81 MG BID 01/27 0900 DC 01/30 PO 0835 Atorvastatin Calcium 40 MG 1700 01/27 1700 AC 01/30 PO 2035 Dextrose/Sodium 1,000 ML ONCE ONE 01/31 0000 AC 01/30 Chloride IV 01/31 1319 2310 Enoxaparin Sodium 30 MG DAILY 01/28 1105 DC 01/30 SC 0836 Fenofibrate 145 MG DAILY 01/27 0900 AC 01/30 PO 1014 Ibuprofen 200 MG Q6P PRN 01/27 0515 DC 01/29 PO 0936 Lidocaine 1 PAT DAILY PRN 01/27 0515 AC 01/30 TOP 1014 Metoprolol Tartrate 25 MG BID 01/27 0900 AC 01/31 PO 0824 Omeprazole 20 MG DAILY 01/27 0900 AC 01/30 PO 0836 Past History Medical History Blood Transfusion Hx: Yes Neurological: NONE EENT: cataracts (extraction) Cardiovascular: CAD (with coronary fistula), hyperlipidemia, post-operative VT Respiratory: NONE Gastrointestinal: upper GI bleed, diverticulitis with perforation, colostomy and reversal Celiac disease/[place] Hepatic: NONE Renal: urinary tract infection with renolithiasis Musculoskeletal: osteoarthritis, OSTEOPOROSIS CHRONIC BACK PAIN Psychiatric: NONE Endocrine: NONE Blood Disorders: NONE Cancer(s): WALDENSTROM- MACROGLOBULINEMIA 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 Home Who Do You Live With? spouse Services at Home: None Primary Language: Luxembourgish Smoking Status: Never Smoked ETOH Use: denies use Illicit Drug Use: denies illicit drug use Functional Ability Ambulation: walker Exam & Diagnostic Data Vital Signs and I&O Vital Signs Date Time Temp Pulse Resp B/P B/P Pulse O2 O2 Flow FiO2 Mean Ox Delivery Rate 01/31 0824 75 112/70 01/31 0800 94 Nasal 2.0L Cannula 01/31 0650 98.7 75 20 112/70 94 Nasal Cannula 01/31 0000 Nasal 2.0L Cannula 01/30 2136 98.3 80 20 96 Nasal Cannula 01/30 2035 76 110/60 01/30 1600 95 Nasal 2.0L Cannula 01/30 1530 Room Air 01/30 1454 98.6 78 16 100/50 95 Nasal Cannula 01/30 1445 88 Room Air 01/30 1110 92 Room Air Intake & Output 01/31 1600 01/31 0800 01/31 0000 01/30 1600 01/30 0800 01/30 0000 Intake Total 600 360 620 60 370 Output Total Balance 600 360 620 60 370 Intake, IV 600 250 Intake, Oral 360 620 60 120 Number 2 1 1 0 Bowel Movements Patient 79 lb 6 oz 78 lb 5 oz Weight Weight Bed scale Measurement Method Physical Exam: On examination she is lying comfortably in bed without distress although she is taking slightly shortened and shallow inspirations which is of uncertain significance. Her left lower extremity is only minimaly externally rotated and not significantly shortened. She was actually lyng on the left side on initial evaluation without significant pain in the left hip despite that position. Her spine is generally nontender or only minimally tender to palpation. She is neurovascularly intact in both lower extremities. Mobilization, standing and ambulation could not be tested because of her acute and potentially unstable hip region fracture. The remainder of her examination is unchanged from medicine service admission reports. Refer to those records for details. Last 24 Hours of Labs: Laboratory Tests 01/31 0710 Chemistry Sodium (137 - 145 mmol/L) 142 Potassium (3.5 - 5.1 mmol/L) 4.0 Chloride (98 - 107 mmol/L) 111 H Carbon Dioxide (22 - 30 mmol/L) 26 Anion Gap (5 - 16) 6 BUN (7 - 17 mg/dL) 8 Creatinine (0.5 - 1.0 mg/dL) 0.4 L Estimated GFR (>60 ml/min) > 60 BUN/Creatinine Ratio (7 - 25 %) 20.0 Glucose (65 - 99 mg/dL) 76 Coagulation PT (9.4 - 12.5 SEC) 11.3 INR (0.90 - 1.19) 1.04 APTT (25 - 37 SEC) 30 Hematology CBC w Diff NO MAN DIFF REQ WBC (4.8 - 10.8 /CUMM) 5.4 RBC (4.20 - 5.40 /CUMM) 4.01 L Hgb (12.0 - 16.0 G/DL) 11.2 L Hct (37 - 47 %) 34.8 L MCV (81.0 - 99.0 FL) 86.9 MCH (27.0 - 31.0 PG) 28.0 MCHC (33.0 - 37.0 G/DL) 32.3 L RDW (11.5 - 14.5 %) 29.9 H Plt Count (130 - 400 /CUMM) 278 MPV (7.4 - 10.4 FL) 9.2 Gran % (42.2 - 75.2 %) 70.9 Lymphocytes % (20.5 - 51.1 %) 17.3 L Monocytes % (1.7 - 9.3 %) 10.6 H Eosinophils % (0 - 5 %) 0.8 Basophils % (0.0 - 2.0 %) 0.4 Absolute Granulocytes (1.4 - 6.5 /CUMM) 3.8 Absolute Lymphocytes (1.2 - 3.4 /CUMM) 0.9 L Absolute Monocytes (0.10 - 0.60 /CUMM) 0.6 Absolute Eosinophils (0.0 - 0.7 /CUMM) 0 Absolute Basophils (0.0 - 0.2 /CUMM) 0 Imaging Results: Multiple chronic or acute on chronic vertebral osteoporotic compression fractures without other pathology, instability, severe retropulsion or associated canal compromise. Left hip intertrochanteric fracture with moderate comminution and extension into the calcar but no significant displacement or angulation. Assessment/Plan Assessment/Plan Stephen Menard is an 82 year old WF with multiple medical conditions and limited home walker ambulation who originally presented on 01/26/2018 for increased back pain secondary to acute on choronic osteoporotic compression fractures who now requires separate orthopaedic consultation and management related to a fall from bed on 01/28/2018 and resultant left nondisplaced intertrochanteric hip fracture. This fracture is nondisplaced but comminuted and intrinsically unstable particularly under patient (even very low) body weight or possibly even with rotation. There could even be progressive displacement over time related to resting muscular reactive forces. The options for treatment were reviewed with the patient and her including the potential benefits and risks of all reasonable alternatives focusing on the primary choices of surgical intervention versus a minimum of 4-6 weeks of bracing and bedrest with mobilization limited to unweighted chair transfers. After appropriate consideration and discussion with her she very reasonably elected to proceed with surgical intervention of ORIF accepting all potential limitations and risks. She is less confuse now off of narcotic medications and there was nothing to suggest that she could not make decisions regarding her care ( particularly with appropriate and supportive participation by her ). Signed operative consent was obtained from the patient (with her present and participating in the consent process at her request) following discussion of and with good understanding of all alternatives, indications, goals, limitations , benefits and risks of each reasonable alternative and the ultimately selected intervention. The case was discussed directly with both Cardiology and the primary admitting Medicine team. The patient is cleared as optimized for surgery in the moderate to high risk category by both services. She ate lunch a few hours ago and, since her surgery is nonemergent, she is therefore not an appropriately optimized candidate for surgery today. The options for surgical scheduling based on the urgent but non-emergent acuity of her condition as well as the likley availability of operating room time were reviewed along with my recommendations in this regard and the patient elected to proceed tomorrow with surgery. All standard preoperative preparations will be made per protocol. She will remain NPO after midnight. Copies To: Farhad RODRIGUEZ,Gerard Parrish Consult Acknowledgment - Thank you for your consult request. Attending MD Review Statement Attending Statement Attending MD Statement: examined this patient, discuss w/resident/PA/SHORT HAUL DRIVER, agreed w/resident/PA/SHORT HAUL DRIVER, discussed with family, reviewed EMR data (avail), discussed w/ nursing, discussed w/case mgmt, reviewed images Attending Assessment/Plan: See above Assessment/Plan Section (completed by consulting orthopaedic surgery attending, Gerard Llamas M.D.).
--- NOTE | 2018-01-31 16:16 | PN- Cardiology ---
Subjective Subjective: * Doing well post operatively. No chest pain or shortness of breath. * sinus rhythm Objective Vital Signs and I&Os Vital Signs Date Time Temp Pulse Resp B/P B/P Pulse O2 O2 Flow FiO2 Mean Ox Delivery Rate 01/31 0824 75 112/70 01/31 0800 94 Nasal 2.0L Cannula 01/31 0650 98.7 75 20 112/70 94 Nasal Cannula 01/31 0000 Nasal 2.0L Cannula 01/30 2136 98.3 80 20 96 Nasal Cannula 01/30 2035 76 110/60 Intake & Output 01/31 1600 01/31 0800 01/31 0000 01/30 1600 01/30 0800 01/30 0000 Intake Total 450 600 360 620 60 370 Output Total Balance 450 600 360 620 60 370 Intake, IV 450 600 250 Intake, Oral 0 360 620 60 120 Number 3 2 1 1 0 Bowel Movements Patient 79 lb 6 oz 78 lb 5 oz Weight Weight Bed scale Measurement Method Physical Exam: General: WD/thin female in NAD; alert and oriented x 3 HEENT: NC/AT, PERRL, EOMI Neck: no JVD, no carotid bruit Heart: RRR with 3/6 systolic murmur and +ve S4 Lungs: clear bilaterally anteriorly Abdomen: soft, NT, +ve bowel sounds Extremities: no edema Assessment/Plan Assessment/Plan * This patient has minor obstructive CAD as per her last cardiac catheterization. 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 In the past, she has done well at moderate levels of activity despite this. The patient has now ruled in for a small NSTEMI which is a type 2 event. I suspect that in the setting of sedation for pain and physiologic stress she had some supply demand mismatch causing a minimal rise in cardiac enzymes. I do not have a high suspicion of a ruptured intracoronary plaque. I recommended that she remain on a beta leonidas to prevent tachycardia. Her EF by echocardiography was normal. Continue aspirin and her statin. * This patient has a left hip fracture which has been treated surgically to good effect. She is doing well post op. Continue telemetry? Yes
[2018-01-31 16:17] VITALS: BP 118/68
--- NOTE | 2018-01-31 18:10 | RADIOLOGY REPORT ---
EXAMINATION: XR HIP, LEFT, C-arm imaging CLINICAL INFORMATION: ORIF left hip fracture COMPARISON: CT left hip 01/30/2018. TECHNIQUE: C-arm imaging of the left hip. Number of images: 7 FINDINGS: C-arm images show placement of gamma nail compression screw transfixing fracture of the left proximal femur. IMPRESSION: Status post ORIF left hip fracture.
--- NOTE | 2018-01-31 18:20 | PN- Orthopedic ---
Subjective Subjective: 82 y/o female sitting upright in bed eating dinner with . She is confused but at her baseline. no complaints of pain just generalized soreness. Objective Vital Signs and I&Os Vital Signs Date Time Temp Pulse Resp B/P B/P Pulse O2 O2 Flow FiO2 Mean Ox Delivery Rate 01/31 1617 97.4 91 20 118/68 92 Nasal 4.0L Cannula 01/31 0824 75 112/70 01/31 0800 94 Nasal 2.0L Cannula 01/31 0650 98.7 75 20 112/70 94 Nasal Cannula 01/31 0000 Nasal 2.0L Cannula 01/30 2136 98.3 80 20 96 Nasal Cannula 01/30 2035 76 110/60 Intake & Output 01/31 1600 01/31 0800 01/31 0000 01/30 1600 01/30 0800 01/30 0000 Intake Total 450 600 360 620 60 370 Output Total Balance 450 600 360 620 60 370 Intake, IV 450 600 250 Intake, Oral 0 360 620 60 120 Number 3 2 1 1 0 Bowel Movements Patient 79 lb 6 oz 78 lb 5 oz Weight Weight Bed scale Measurement Method Physical Exam: VVS, confused but alert, answers questions, at baseline for mental status heart-RRR without MRG Abd -nontender, no distention. chest-CTA symmetric left hip -dressings CDI, mild thigh edema distal pulses intact, feet warm with good sensation calves soft with ALPS in place Physical Exam General Appearance: alert, awake, comfortable Assessment/Plan Assessment/Plan postop check after left hip gamma nail diet advanced -tolarating well DVT proph -HSQ to start tomorrow PT -transfers with WBAT advance slowly with walker and assistance at all times fall risk keep narcotic pain meds at a minimum to prevent delerium dressing change POD2 discussed above plan with Dr. Llamas and medical service Core Measures Venous Thromboembolism VTE Risk Factors Age>40 No Mechanical VTE Prophylaxis d/t N/A MechProphylax Ordered No VTE Pharm Prophylaxis d/t NA PharmProphylax ordered
[2018-01-31 21:53] VITALS: BP 98/54
[2018-02-01 06:54] VITALS: BP 94/56
[2018-02-01 08:12] LABS: ABSOLUTE BASOPHIL COUNT 0 /CUMM (0.0-0.2); ABSOLUTE EOSINOPHIL COUNT 0.1 /CUMM (0.0-0.7); ABSOLUTE GRANULOCYTE CT 3.9 /CUMM (1.4-6.5); ABSOLUTE LYMPH COUNT 0.8 /CUMM (1.2-3.4); ABSOLUTE MONOCYTE COUNT 0.7 /CUMM (0.10-0.60); BASOPHIL % 0.5 % (0.0-2.0); EOSINOPHIL % 0.9 % (0-5); GRANULOCYTE % 70.1 % (42.2-75.2); HEMATOCRIT 33.1 % (37-47); MEAN CORPUSCULAR HGB 28.4 PG (27.0-31.0); MEAN CORPUSCULAR HGB CONC 32.5 G/DL (33.0-37.0); MEAN CORPUSCULAR VOLUME 87.4 FL (81.0-99.0); MEAN PLATELET VOLUME 9.3 FL (7.4-10.4); PLATELET COUNT 344 /CUMM (130-400); RBC DISTRIBUTION WIDTH 29.8 % (11.5-14.5); RED BLOOD CELL CT 3.78 /CUMM (4.20-5.40); WHITE BLOOD CELL COUNT 5.5 /CUMM (4.8-10.8)
--- NOTE | 2018-02-01 08:29 | PN- Housestaff ---
Helena RODRIGUEZ,Susanna 02/01/18 0829: Subjective Follow-up For: Left femoral neck fracture status post ORIF the 1 back Pain with compression fracture elevated troponins-resolved Tele-Events Since Last Visit: Normal sinus rhythm, 64, 0.08, 0.14, no overnight events Subjective: Patient was seen and examined, continues to complain of mild left hip pain, was advised to use the spirometry, will be working with physical therapy today, will discontinue her Milton catheter Review of Systems Constitutional: Reports: see HPI. Objective Last 24 Hrs of Vital Signs/I&O Vital Signs Date Time Temp Pulse Resp B/P B/P Pulse O2 O2 Flow FiO2 Mean Ox Delivery Rate 02/01 0854 89 118/60 02/01 0654 97.1 75 20 94/56 96 Nasal 4.0L Cannula 02/01 0000 95 Nasal 4.0L Cannula 01/31 2153 97.4 98 18 98/54 96 Nasal Cannula 01/31 2045 100 99/54 01/31 1617 97.4 91 20 118/68 92 Nasal 4.0L Cannula 01/31 1600 92 Nasal 4.0L Cannula Intake & Output 02/01 1600 02/01 0800 02/01 0000 Intake Total 120 240 Output Total 325 250 Balance -205 -10 Intake, Oral 120 240 Number 1 Bowel Movements Output, Urine 325 250 Patient 85 lb 8 oz Weight Weight Bed scale Measurement Method Physical Exam General Appearance: Alert, Oriented X3, Cooperative, No Acute Distress HEENT: Atraumatic, PERRLA, EOMI, Mucous Membr. moist/pink Cardiovascular: Normal S1, Normal S2 Lungs: Clear to Auscultation Abdomen: Normal Bowel Sounds, Soft, No Tenderness Neurological: Normal Speech, Strength at 5/5 X4 Ext, Normal Tone, Sensation Intact, Cranial Nerves 3-12 NL Extremities: No Clubbing, No Cyanosis, intact neurovascular functions Assessment/Plan Assessment: 89-year-old female with a PMH significant for HTN, HLD, celiac disease, Waldenstrm's macroglobulinemia follows with Dr. Hannah, osteoporosis with multiple osteoporotic vertebral compression fractures, who presented to the [facility] ED complaining of intractable lower back pain. Assessment: 1.Intertrochanteric left femur fracture S/P ORIF POD 1 2. Lower back pain 3. Elevated Troponins 4. UTI 5. Compression fractures located at T10, L4,L1 6. History of Osteoporosis 7. History of dementia Plan: * Continue to monitor on telemetry for elevated troponins * troponins trended down and no EKGs changes * Cardiology recomm apprecited * Orthopedic consult appreciated * Echocardiogram showed normal ejection fraction of 70% with impaired LV relaxation, mild mitral regurg, tricuspid regurg, aortic regurg, moderate to severe pulmonary hypertension * Continue to monitor off antibiotics * Start subcutaneous heparin and aspirin today as per surgery recommendation * Pain control with Lidoderm patch and tylenol 650mg q8 prn. * Avoid narcotics * Diet: Gluten-free * DVT Prophylaxis: SC Lovenox * Code: Full Code Problem List: 1. Hip fracture, left Pain Ratin Pain Location: Left hip Pain Goal: Pain 4 or less Pain Plan: [facility] Labs & Rationales: CBC BEP John Paul Ellis 02/01/18 1116: Attending MD Review Statement Attending Statement Attending MD Statement: examined this patient, discuss w/resident/PA/COMPUTER EQUIPMENT INSTALLER, agreed w/resident/PA/COMPUTER EQUIPMENT INSTALLER, discussed with family, reviewed EMR data (avail), discussed with nursing, discussed with case mgmt, reviewed images, amended to note Attending Assessment/Plan: Patient seen in clemente-operative period s/p hip repair for hip fracture after fall. Patient with c/o soreness at surgical site with no new complaints. Her back pain is controlled. Her vitals remain stable. She is encouraged to use incentive spirometry frequently. Orthopedics and cardiology f/u. DVT prophyalxis as per ortho. Continue rest of medications.
--- NOTE | 2018-02-01 08:47 | Discharge Summary ---
See Addendum Visit Information Visit Dates Admission Date: 01/26/18 Discharge Date: 02/02/2018 Hospital Course Course Attending Physician: John Paul Ellis MD Primary Care Physician: James Wright MD Hospital Course: Mrs. Pink is a 89-year-old female with past medical history significant for hypertension, hyperlipidemia, celiac disease on glutin free diet, Waldenstrm's macroglobulinemia follows with Dr. Hannah, osteoporosis with multiple osteoporotic vertebral compression fractures, who presents to the [facility] ED complaining of intractable lower back pain. Patient was initially admitted to general medical floor for intractable low back pain, orthopedic consultation was obtained with recommendation for conservative management with Lidoderm patch and Tylenol given the fact that CAT scan lumbar spine didn't show any acute changes, stable chronic L1 compression fracture with mild focal kyphosis was noted. Patient had sundowning and confusion that resulted in a fall. Images revealed comminuted minimally displaced intertrochanteric fracture of the left femur, labs were positive for minimally elevated troponin with no EKG changes. Patient was transferred to telemetry floor, cardiac consultation was obtained. Patient had type II MS, troponins EKG trended down without symptoms. Orthopedic consultation was obtained with recommendation for surgery, Patient was cleared for surgery from cardiac standpoint. Patient had uneventful left hip intramedullary roading secondary to left hip intratrochanteric comminuted fracture with minimal displacement. She was kept on telemetry floor for heart monitoring, no telemetry events. PT evaluation was obtained with recommended weightbearing as tolerated on bilateral lower extremity, daily dressing change. Patient was cleared for discharge to [facility] for physical therapy. No anticoagulation is required based on orthopedic recommendation, patient will be discharged on home dose aspirin 80 mg twice a day. Please follow up with Dr. Llamas within 2 weeks after discharge for staple removal and radiographs and then at 2 months and 4 months for radiographs, Dressing changes qD. Physical therapy with wightbearing as tolerated. PT and progress toward supervised walker assisted ambulation as tolerated. If mobilization is difficult then staple removal and initial radiographs (AP/LAT left hip) can be performed at rehabilitation facility and radiographs sent to Dr. Llamas for review. Allergies: Coded Allergies: gluten (CELIAC 05/10/17) phenobarbital (HIVES 05/10/17) Disposition Summary Disposition Principal Diagnosis: Intractable low back pain, improved Additional Diagnosis: Left comminuted intertrochanteric femoral fracture Discharge Disposition: SNF Discharge Instructions General Discharge Information Code Status: Full Code Patient's Diet: Gluten-free diet Patient's Activity: Physical therapy with weightbearing as tolerated bilateral lower extremity, progress toward supervised walker assisted ambulation as tolerated Follow-Up Instructions/Appts: -Please follow up with your PCP. -Please follow up with Dr. Llamas within 2 weeks after discharge for staple removal and radiographs and then at 2 months and 4 months for radiographs. -Dressing changes qD. -Physical therapy with wightbearing as tolerated. -PT and progress toward supervised walker assisted ambulation as tolerated. -If mobilization is difficult then staple removal and initial radiographs (AP/ LAT left hip) can be performed at rehabilitation facility and radiographs sent to Dr. Llamas for review. Medications at Discharge Discharge Medications: Continue taking these medications: Lovastatin (Lovastatin) 40 MG TABLET 1 Tablet ORAL DAILY Instructions: with food Comments: NOT TAKEN AT THE HOSPITAL Fenofibrate Nanocrystallized (Fenofibrate) 145 MG TABLET 1 Tablet ORAL DAILY Comments: NOT TAKEN AT THE HOSPITAL Furosemide (Furosemide) 20 MG TABLET 1 Tablet ORAL TWICE DAILY Comments: NOT TAKEN AT THE HOSPITAL Aspirin (Ecotrin*) 81 MG TABLET.DR 1 Tablet ORAL TWICE DAILY Comments: Last Taken: 02/02/18 Time: 09;30 AM Biotin (Biotin) 300 MCG TABLET 1 Tablet ORAL DAILY Comments: NOT GIVEN AT HOSPITAL Magnesium Oxide (Magnesium) 250 MG TABLET 1 Tablet ORAL TWICE DAILY Comments: Last Taken: 04/21/17 Time: 0830 AM Folic Acid (Folic Acid) 0.8 MG TABLET 1 Tablet ORAL DAILY Comments: NOT GIVEN AT HOSPITAL [place]-3/Dha/Epa/Fish Oil (Fish Oil 500 MG Softgel) 60 MG-90 MG-500 MG CAPSULE 1 Capsule ORAL DAILY Comments: NOT GIVEN AT HOSPITAL Gluc 2KCL/Chondr/Antonio Hy/Hy AC (Glucosamine & Chondroitin Cap) 375 MG-300 MG-175 MG-2 MG CAPSULE 1 Tablet ORAL TWICE DAILY Comments: NOT GIVEN AT HOSPITAL Zoledronic Acid (Reclast 5 MG/100 Ml Solution) 5 MG/100 ML INFUS..BTL 1 Inj INTRAVEN Q365D Comments: NOT GIVEN AT HOSPITAL Metoprolol Tartrate (Metoprolol Tartrate) 25 MG TABLET 1 Tablet ORAL TWICE DAILY Qty = 180 Comments: Last Taken: 12/03/17 Time: 09;30 AM Cholecalciferol (Vitamin D3) (Vitamin D3) 2,000 UNIT TABLET 1 Tablet ORAL DAILY Comments: NOT TAKEN AT THE HOSPITAL Ascorbic Acid (Vitamin C) 100 MG TABLET 1 Tablet ORAL DAILY Qty = 30 Comments: NOT TAKEN AT THE HOSPITAL Ergocalciferol (Vitamin D2) (Vitamin D2) 50,000 UNIT CAPSULE 1 Capsule ORAL EVERY SUNDAY Qty = 12 Comments: NOT TAKEN AT THE HOSPITAL Hyoscyamine Sulfate (Levsin-Sl) 0.125 MG TAB.SUBL 1-2 Tablet SUBLINGUAL EVERY 4 HOURS NEEDED as needed for abdominal pain Qty = 60 Mag Hydrox/Al Hydrox/Simeth (Maalox Maximum Strength Susp) 400 MG-400 MG-40 MG/5 ML ORAL.SUSP 15 Milliliters ORAL EVERY 4 HOURS NEEDED as needed for abdominal pain Qty = 240 Comments: NOT TAKEN AT THE HOSPITAL Omeprazole (Omeprazole) 20 MG CAPSULE.DR 1 Capsule ORAL DAILY Comments: Last Taken:02/02/18 Time:09;30AM Naproxen (Naprosyn) 500 MG TABLET 1 Tablet ORAL TWICE DAILY as needed for back pain Qty = 60 Lidocaine (Lidoderm) 5 % ADH..PATCH 1 Patch On the skin DAILY as needed for back pain Qty = 30 Instructions: may wear up to 12 hours Comments: NOT TAKEN AT THE HOSPITAL Start taking the following new medications: Acetaminophen (Tylenol) 325 MG TABLET 2 Tablet ORAL EVERY 8 HOURS as needed for Pain Qty = 60 No Refills Copies To: Farhad RODRIGUEZ,Gerard Parrish; Adriana RODRIGUEZ,James Marshall; Ingrid RODRIGUEZ PHD,Christiano Schmidt Attending MD Review Statement Documenting Attending: Caleb RODRIGUEZ,John Paul Other Findings: Discharging physician Dr Clarence Courtney MD.
--- NOTE | 2018-02-01 09:53 | PN- Orthopedic ---
Surgical Brief Attending Note Brief Attending Note: Patient seen by Dr. Llamas as routine inpatient consultation postoperative followup on 02/01/2018 @ 08:15 AM primarily related to her early postoperative status: History: Stephen Pink is an 82 y/o frail WF with osteoporosis and multiple other comorbid diagnoses who was originally admitted to [facility] on 01/26/18 for subacute on chronic thoracolumbar compression fractures (T10, L1, and L4) and then sustained a nondisplaced left hip region IT fx in a fall from bed. She is now POD #1 S/P fluoroscopic optimization of alignment and minimally invasive open cephalomedullary nail internal fixation. She is doing extremely well and is sitting in a chair currently eating breakfast. She is awake, alert, conversational and appears to be oriented. By report she got to the chair using single person and waistband assisted stand and pivot transfer which she tolerated well. She is not requiring significant pain medication and Tylenol seems to be sufficient. She is much less sedated and confused now that she is not on narcotics for pain. Back pain is still prominent but is decreasing steadily. No worsening back symptoms since surgery and with postop mobilization. No NV symptomatic changes or worsening. Examination: On examination she is distally neurovascularly intact. Her dressing is CD+I. Short arc motion of the left hip is well tolerated and elicits only minimal pain. More extensive range of motion and weightbearing assessment was not performed and will be deferred to hospital inpatient PT followed by inpatient rehabilitation facility PT serial evaluations. Assessment: Doing quite well POD #1 S/P cephalomedullary nail ORIF for nondisplaced IT fx. Ready for rehabilitation program transfer in the very near future from an orthopaedic standpoint. Will defer to primary medicine team regarding whether medical comorbidities may necessitate more prolonged hospitalization. If back pain continues to limit mobilization and function then bracing (elastic or buttressed elastic binder or corset may be sufficient and most comfortable in this small patient) may be considered. Plan: Dressing changes qD. WBAT BLE PT and progress toward supervised walker assisted ambulation as tolerated. F/U would normally be at 2 weeks for staple removal and radiographs and then at 2 months and 4 months for radiographs. If mobilization is difficult then staple removal and initial radiographs (AP/LAT left hip) can be performed at rehabilitation facility and radiographs sent to Dr. Llamas for review.
[2018-02-01 15:24] VITALS: BP 102/54
--- NOTE | 2018-02-01 17:34 | PN- Cardiology ---
Subjective Subjective: * No complaints. * No dysrhythmia's * Patient is eating well. Objective Vital Signs and I&Os Vital Signs Date Time Temp Pulse Resp B/P B/P Pulse O2 O2 Flow FiO2 Mean Ox Delivery Rate 02/01 1524 97.7 81 20 102/54 98 Room Air 02/01 0854 89 118/60 02/01 0800 95 Nasal 4.0L Cannula 02/01 0654 97.1 75 20 94/56 96 Nasal 4.0L Cannula 02/01 0000 95 Nasal 4.0L Cannula 01/31 2153 97.4 98 18 98/54 96 Nasal Cannula 01/31 2045 100 99/54 Intake & Output 02/01 1600 02/01 0800 02/01 0000 01/31 1600 01/31 0800 01/31 0000 Intake Total 420 120 240 450 600 360 Output Total 125 325 250 Balance 295 -205 -10 450 600 360 Intake, IV 450 600 Intake, Oral 420 120 240 0 360 Number 1 3 2 1 Bowel Movements Output, Urine 125 325 250 Patient 85 lb 8 oz 79 lb 6 oz Weight Weight Bed scale Bed scale Measurement Method Physical Exam: General: WD/thin female in NAD; alert and oriented x 3 HEENT: NC/AT, PERRL, EOMI Neck: no JVD, no carotid bruit Heart: RRR with 3/6 systolic murmur and +ve S4 Lungs: clear bilaterally anteriorly Abdomen: soft, NT, +ve bowel sounds Extremities: no edema Assessment/Plan Assessment/Plan * This patient has minor obstructive CAD as per her last cardiac catheterization. 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 In the past, she has done well at moderate levels of activity despite this. The patient has now ruled in for a small NSTEMI which is a type 2 event. I suspect that in the setting of sedation for pain and physiologic stress she had some supply demand mismatch causing a minimal rise in cardiac enzymes. I do not have a high suspicion of a ruptured intracoronary plaque. I recommended that she remain on a beta leonidas to prevent tachycardia. Her EF by echocardiography was normal. Continue aspirin and her statin. * This patient has a left hip fracture which has been treated surgically to good effect. She is doing well post op. Continue telemetry? No
--- NOTE | 2018-02-01 21:30 | Operative Report ---
Operative/Inv Procedure Report Surgery Date: 01/31/18 Name of Procedure: 1) Left Hip Proximal Femoral Intertrochanteric Fracture Open Reduction And Cephalomedullary Internal Fixation ([facility]) 2) Left Hip Intraoperative Fluoroscopic Assessment Of Proximal Femoral Intertrochanteric Initial And Final Optimized Fracture Alignment And Stability ( [facility]) Pre-Operative Diagnosis: Primary Surgically Treated Diagnoses: 1) Left Hip Minimally Displaced Intertrochanteric Fracture Post-Operative Diagnosis: Same as preoperative diagnosis list with the addition of standard postoperative symptomatic diagnoses Estimated Blood Loss: less than 50ml Surgeon/Marketing Business Analyst: BRITTANY LLAMAS MD - Primary Consulting Orthopaedic Surgeon Surgical Providers: Brittany Llamas M.D. - Orthopaedic Surgeon Anesthesia: general endotracheal tube Monitors: Standard general anesthesia and other perioperative monitoring was performed per anesthesia. Refer to anesthesia records for details. IV Fluids: Standard anesthesia perioperative fluid management was performed without requirement for additional or emergent fluid resuscitation. Refer to anesthesia records for details. Implants: Implants Placed: Left Hip And Proximal Femur Region Implants: Katarina Gamma 3 Cephalomedullary Titanium Alloy Fracture Fixation System: Gamma 3 System Short Cephalomedullary Nail Compnents: 10 mm diameter x 170 mm length x 130 degree screw-satnam angle cephalomedullary nail Gamma 3 System 10.5 mm x 90 mm Cepalad Fixation Lag Screw Gamma 3 System 5.0 mm x 42.5 mm Fully Threaded Bicortical Distal Nail Oval Transfixion Hole "Static" Position Locking Screw Graft Placed: None Urine Output: Refer to anesthesia records for details. Drains: None Specimens: None Complications: None Operative/Procedure Note Note: Preoperative Holding Area Assessment/Preparation: The patient was evaluated in the preoperative holding area prior to surgery with no clinical changes or contraindications to surgical intervention documented compared to the stable postinjury and preoperative baseline deficits localized to the left hip and proximal lower extremity related to her intertrochanteric fracture as documented on preoperative medical admission and orthopaedic consultation general medical, neurovascular and musculoskeletal clearance evaluations. Her left hip and, to a lesser but still detectable degree, the rest of her left lower extremity range of motion and other neuromusculoskeletal assessments were obviously limited due to pain, instability and potential displacement of her fracture. The region of the intended surgical site was cleansed, prepped and marked per protocol. The primary surgeon, anesthesia care team members, and operating room staff confirmed the patient identity, surgical procedure, and operative site as well as other clinical details with the patient in an initial documented preoperative confirmation ( awake time out) prior to the administration of sedation or anesthesia. Surgical Procedure: The procedure was performed by Dr. Llamas who was present and served as the primary surgeon for all critical intraoperative and perioperative decisions and interventions. Set-Up/Positioning/Exposure - The patient was brought to the operating room in stable condition and underwent uncomplicated induction of general anesthesia followed by placement of laryngeal mask airway (LMA) as well as all appropriate monitors, lines, tubes and catheters without difficulty. The LMA was ultimately converted due to suboptimal fit and the patients ventilation and anesthesia was uncomplicated and standard for this procedure otherwise. Prophylactic antibiotic administration of 2 grams of IV Ancef based on patient body mass was performed per orthopaedic surgical open internal fixation fracture care operative protocols and was completed at least 30 and less than 60 minutes prior to making an incision. The patient was positioned supine on the operating traction table in standard fashion for a left intertrochanteric hip fracture closed optimization of alignment and minimally invasive open cephalomedullary nail internal fixation taking care to protect and stabilize the hip and lower extremity during transfer , abduct the right arm on a well padded arm board and adduct the left arm secured over the torso on a pillow so as to avoid positions of nerve stretch with all pressure points fully padded. Optimal alignment was achieved with standard positioning and slight longitudinal traction. This was documented on preincision intraoperative AP, lateral and oblique fluoroscopic spot views. Only the minimal desired optimization of fracture alignment, fracture fragment position and orientation was noted compared to the minimally displaced preoperative alignment and no displacement or malalignment of fragments was observed on these images. The surgeon, anesthesia care team, and operating room staff again documented the patient identity, surgical procedure, and operative site as well as other clinical details in a final documented confirmation (final time out) prior to beginning the procedure. Exposure - Sterile prep and drape were performed using standard technique with DuraPrep, rectangular placement of sterile towels and covering of the operative field with an Ioban antimicrobial incise curtain drape. Reference lines for the fracture, the tip of the greater trochanter, the femoral neck and shaft as well as the cephalad lag screw entry point at the lateral flare of the proximal femur were drawn with a marking pen along a radiopaque marker placed on the skin and projected over these structures on AP, lateral and oblique fluoroscopic views. The extent of the primary proximal incision for nail insertion was then marked and this linear incision was made longitudinally extending proximally from the tip of the greater trochanter for approximately 5 cm using a #10 scalpel blade. Hemostasis was achieved using Bovie electrocautery beginning with the skin edges of the incision and continuing throughout the procedure where necessary with settings appropriate to each progressive level. The dissection was carried down through the subcutaneous layer and the fascia was divided longitudinally in line with and throughout the length of the small skin incision using Metzenbaum scissors with a blunt spreading dissection technique. Further subfascial Metzenbaum and digital blunt dissection was carried down to the superior cortical margin of the tip of the greater trochanter of the femur. Each successive layer was dissected slightly more distal than the one superficial to it taking an overall inferomedial approach to match the intended intramedullary guidewire and nail trajectory along the angle of the femoral shaft. A speculum-type soft tissue protector was placed through the dissected soft tissue layers down to the intended greater trochanteric cortical entry point so as to prevent muscular injury during drilling of the entry site or placement of the guide-wire and nail. A threaded guidepin was advanced along this dissected path to the superior tip of the greater trochanter and confirmed to be at the optimal nail entry site just lateral to the most superior prominence of the greater trochanter on AP fluoroscopic view and just posterior to the greater trochanteric midpoint on the lateral view. Once the optimal entry point was confirmed, the guidepin was advanced through the cortex at that point and into the intertrochanteric region using a drill taking care to maintain optimal trajectory parallel to the intramedullary canal and avoid contact with or penetration beyond the medial femoral cortex. Optimal position of the guidepin was confirmed on orthogonal fluoroscopic views and the cannulated drill for the proximal nail entry site specific to this instrumentation design was passed over the guidepin and used to drill the proximal openingdown to the intertrochanteric level. Care was again taken to avoid cortical fracture or displacement extending from the circular entry site, maintain optimal trajectory parallel to the intramedullary canal and avoid contact with or penetration beyond the medial femoral cortex either at the intertrochanteric fracture site or in the intact subtrochanteric medial cortical region. Closed Optimization Of Alignment And Minimally Invasive Open Cephalomedullary Nail Internal Fixation - Under fluoroscopic guidance on orthogonal C-arm views, a ball-tip guidewire was advanced through the proximal drill hole at the tip of the greater trochanter, past the intertrochanteric segment, across the fracture site and down the femoral intramedullary canal to the level of the proximal femoral metadiaphyseal junction taking care not to exit through the fracture site or to penetrate the intact femoral cortical wall especially given the patients osteopenia on radiologic studies. With the guidewire in optimal position on AP and lateral C- arm views and the fracture optimally aligned, a standard short left-sided nail measuring 10 mm in diameter, 170 mm in length and with a 130 degree cephalomedullary angle was selected and attached to the impaction apparatus. The nail was then advanced under fluoroscopic guidance to a depth and with proper rotation so as to direct placement of the cephalic ("head-neck") screw in optimal position for proximal fixation. During the final phase of nail implantation the lower extremity traction was partially released to avoid any distraction of the fracture gap and provide mild compression across the fracture during final nail impaction. In this final position, the nail was confirmed to be of optimal length with the proximal end at the tip of the greater trochanter and the distal end in he upper diaphysis. The fracture was found to be stable and optimally aligned once the nail was fully impacted. The proximal fixation guidance arm was attached and the 130 degree guide hole was selected. Rotation of the nail was optimized on the oblique lateral fluoroscopic view matching the patient's normal head-neck angle and the drill sleeve was advanced to the level of the skin and used to brittany the incision for proximal guidepin and screw placement. A small 3 mm lateral thigh incision was made at that point using a #10 scalpel blade. The dissection was carried down through the subcutaneous layer and the fascia was divided longitudinally throughout the length of this small incision using Metzenbaum scissors with a blunt spreading dissection technique. Further subfascial Metzenbaum blunt dissection was carried down to the lateral cortical surface of the femur. Each successive layer was dissected slightly more proximally than the one superficial to it taking an overall superomedial approach to match the intended guidepin and lag screw trajectory along the angle of the femoral neck. The drill sleeve was advanced through this dissected path down to the lateral femoral cortex at the "flare" (metadiaphyseal junction) of the proximal femur. The nail was impacted slightly to optimize the entry site for the proximal fixation screw. A partially threaded guide pin was then advanced through the drill sleeve down to the lateral femoral cortex where the guide-pin and subsequent cannulated lag screw entry point longitudinal level was confirmed to be optimal for proximal fixation screw placement on AP fluoroscopic view. The pin was then advanced into the central portion of the femoral head using a drill while checking trajectory and length on orthogonal C-arm views to insure straight linear pin insertion without bending and placement just inferior to the central axis of the femoral neck and head for optimal proximal osseous fixation. C-arm views were also checked to insure that the depths of the guide-pin tip was approximately 5 mm below the chondral surface of the joint. The slotted depth gauge was used to measure the appropriate screw length from the lateral femoral cortex per its subtraction measurement design. Appropriate adjustment was made to this measurement to account for any gap between the drill sleeve ( used for this subtraction measurement) and the femoral cortex. The cannulated step-cut drill bit was used to drill the proximal path for the cannulated cephalad screw with orthogonal C-arm views monitoring the depth and trajectory of the drill bit and guide pin to insure maintenance of central path in the femoral neck and head, drill tip depth through the lateral femoral cortical surface to approximately 1 cm below the chondral surface without binding or advancement of the guide-pin toward the hip joint surface. Based on the previously described guidepin depth measurement, a 10.5 mm diameter x 90 mm length proximal fixation cannulated lag screw was selected and advanced over the guidepin, through the lateral femoral cortical opening created by the cannulated step-cut drill and into the femoral neck and head with very good overall insertional and final fixation torque (particularly considering patient age, gender and radiologic findings consistent with osteopenia and sugggestive of osteoporosis confirmed by palpation and mechanical assessment during implant placement intraoperatively). Optimal placement and final position were monitored on AP, lateral and multiple oblique fluoroscopic views to insure that the proper depth was achieved with the superomedial threaded fixation end of the screw at approximately 5 mm below the chondral surface of the joint and with the inferolateral "head" end of the screw projecting only slightly past the lateral femoral cortex of the femur for optimal circumferential fixation within the lateral femoral cortical drill hole while allowing for fracture lag effect per the design of the implant. The screw alignment was confirmed to be optimal on both the AP and lateral views with trajectory parallel to and just below the central axis of the head and neck for optimal proximal fragment fixation. Care was taken to avoid rotation of the head-neck fragment during proximal interfragmentary lag screw insertion. Fracture line and fracture fragment alignment, orientation and configuration were closely observed and confirmed to be optimal, unchanged and without fragment rotation, fracture line widening or joint surface penetration throughout the process of pin placement, drilling and final screw fixation. With proximal fixation achieved, attention was turned to the distal interlocking fixation. Lower extremity and fracture rotation were adjusted such that the fracture was optimally aligned while the rotation angle between the foot and the fluoroscopic axis of the femoral neck generally matched the normal version of the hip. Once near-anatomic rotation was achieved, traction was released and the leg gently longitudinally impacted so that the fracture was optimally compressed. The Gamma nail aiming arm rotation setting was adjusted for placement of the distal transfixion screw in the dynamic position and the modular drill sleeve for the distal drill and screw was advanced through the appropriate guide hole in the aiming arm to the level of the skin. The cutaneous point of contact of the sleeve was marked and a small 5 mm lateral thigh incision was made at that point using a #10 scalpel blade. The dissection was carried down through the subcutaneous layer and the fascia was divided longitudinally throughout the length of the small incision using Metzenbaum scissors with a blunt spreading longitudinal dissection technique in line with the fascial and muscle fibers. Further subfascial Metzenbaum blunt dissection was carried down to the lateral cortical surface of the femur with the path alignment orthogonal to the femur matching the intended transfixion screw trajectory. The drill sleeve was advanced through this dissected path down to the lateral femoral cortex at the upper diaphyseal level of the femur. A drill was then advanced through the sleeve down to the lateral femoral cortex and a bicortical transfixion screw hole was fashioned orthogonal to and through the distal nail static fixation hole using standard technique. The drill sleeve was confirmed fluoroscopically to be directly contacting the lateral femoral cortex for optimal measurement accuracy and the screw length was measured from markings on the drill bit at the outermost level of the drill sleeve per system design. The drill bit was then removed and a 5 mm diameter x 42.5 mm length fully threaded transfixion screw was placed at the drilled site with excellent insertional and final fixation torque (consistent with solid bicortical capture) . Final optimal position of all hardware, optimal alignment of the fracture line and all fracture fragments was confirmed on multiaxial fluoroscopic images. Finally, the leg was rotated under fluoroscopic imaging to document stable fracture fixation and coplanar singular fracture fragment rotation without any displacement across the fracture lines on dynamic radiographic evaluation and without lag screw penetration too close to the femoral articular surface on multiple angle projections. Final fluoroscopic images were saved and uploaded to the [facility] PACS system prior to closure. Closure/Recovery - The surgical sites were thoroughly irrigated and hemostasis was carefully achieved prior to closure. Initial counts were correct. The edges of the tensor and vastus lateralis fascia were reapproximated using simple #2-0 Vicryl sutures with a few interrupted sutures to close the fascial layer in the uppermost surgical site and single sutures at each of the two lower screw placement surgical sites. The deep and superficial subcutaneous closure was achieved with #2-0 dyed and #3-0 undyed Vicryl respectively using an inverted, interrupted technique. The cutaneous layer was closed using hipolito with the skin edges everted. A standard, sterile Xeroform, fluff 6x6 gauze and ABD pad dressing was placed with good surgical site coverage and was held in place with foam tape taking care to avoid tension on the skin. All final counts were correct prior to removing the drapes. The foot section of the table was reattached and the patient's lower extremities were removed from the traction table attachments and returned to their neutral resting positions. Bilateral pulses and capillary refill were confirmed to be normal and similar to preoperative status. The LMA was removed without difficulty per anesthesia protocols. The perineal post was removed and the patient was transferred to the hospital bed in the supine position taking care to support the pelvis, hips and lower extremities in the neutral position during transfer. Recovery Room Assessment: The patient was transported to the recovery room in stable condition where gross neurological examination showed no deficits on initial recovery from anesthesia. Gentle log roll of the operative leg was not associated with any significant discomfort although there was still some expected mild discomfort consistent with her injury, fracture and surgery. She will follow the usual postoperative protocol for minimally invasive open reduction and short cephalomedullary nail internal fixation of very minimally displaced and minimally angulated but ultimately anatomically aligned, overall stable and well fixed intertrochanteric hip and proximal femoral region fracture. This will include early mobilization, supervised transfers and ambulation with progressive protected (walker-assisted) weight-bearing as tolerated, and discharge planning in preparation for transfer to inpatient rehabilitation program as patient is an excellent short-term rehabilitation candidate by orthopaedic criterion. Given the patient's previous medication-related confusion, all narcotics will be minimized as much as possible. She is instructed not to attempt to get up from bed without supervision. At present she is not confused and seems to understand the importance of these instructions. If she becomes more confused then, as was the case at the time of her original fracture, her family will once again need to be contacted regarding restraint orders so that she does not attempt to get out of bed related to confusion. Discharge Disposition: PACU
[2018-02-01 22:32] VITALS: BP 100/60
[2018-02-02 06:30] VITALS: BP 118/58
[2018-02-02 07:47] LABS: ABSOLUTE BASOPHIL COUNT 0 /CUMM (0.0-0.2); ABSOLUTE EOSINOPHIL COUNT 0.1 /CUMM (0.0-0.7); ABSOLUTE GRANULOCYTE CT 3.7 /CUMM (1.4-6.5); ABSOLUTE LYMPH COUNT 0.9 /CUMM (1.2-3.4); ABSOLUTE MONOCYTE COUNT 0.6 /CUMM (0.10-0.60); BASOPHIL % 0.2 % (0.0-2.0); EOSINOPHIL % 1.1 % (0-5); GRANULOCYTE % 70.9 % (42.2-75.2); MEAN CORPUSCULAR HGB 28.1 PG (27.0-31.0); MEAN CORPUSCULAR HGB CONC 32.3 G/DL (33.0-37.0); MEAN CORPUSCULAR VOLUME 87.2 FL (81.0-99.0); PLATELET COUNT 346 /CUMM (130-400); RBC DISTRIBUTION WIDTH 29.3 % (11.5-14.5); RED BLOOD CELL CT 3.67 /CUMM (4.20-5.40); WHITE BLOOD CELL COUNT 5.2 /CUMM (4.8-10.8)
--- NOTE | 2018-02-02 10:21 | PN- Housestaff ---
See Addendum Subjective Follow-up For: Left femoral neck fracture status post ORIF the 1 back Pain with compression fracture elevated troponins-resolved Subjective: Patient was seen and examined this morning, lying comfortably in bed, patient had a PT session yesterday with now issues. No overnight events. Vital signs are stable. Patient is off awake overnight monitor. Left hip pain is controlled with acetaminophen by mouth and IV. Review of Systems Constitutional: Reports: see HPI. Objective Last 24 Hrs of Vital Signs/I&O Vital Signs Date Time Temp Pulse Resp B/P B/P Pulse O2 O2 Flow FiO2 Mean Ox Delivery Rate 02/02 0930 97.7 79 22 118/58 02/02 0630 97.7 79 22 118/58 96 02/02 0000 Nasal 3.0L Cannula 02/01 2232 98.2 86 20 100/60 95 Nasal 3.0L Cannula 02/01 2051 86 100/60 02/01 1600 94 Nasal 3.0L Cannula 02/01 1524 97.7 81 20 102/54 98 Room Air Intake & Output 02/02 1600 02/02 0800 02/02 0000 Intake Total 120 240 Output Total 175 225 Balance -55 15 Intake, Oral 120 240 Number 1 1 Bowel Movements Output, Urine 175 225 Patient 38.244 kg Weight Weight Bed scale Measurement Method Physical Exam General Appearance: Alert, Oriented X3, Cooperative, No Acute Distress Skin: No Rashes, No Breakdown, No Significant Lesion Skin Temp/Moisture Exam: Warm/Dry HEENT: Atraumatic, PERRLA, EOMI, Mucous Membr. moist/pink Neck: Supple Cardiovascular: Regular Rate, Normal S1, Normal S2, No Murmurs Lungs: Clear to Auscultation, Normal Air Movement Abdomen: Normal Bowel Sounds, Soft, No Tenderness, No Hepatospenomegaly, No Masses Neurological: Normal Speech, Strength at 5/5 X4 Ext, Normal Tone, Sensation Intact, Cranial Nerves 3-12 NL, Reflexes 2+ Extremities: No Clubbing, No Cyanosis, No Edema, Normal Pulses, No Tenderness/ Swelling Assessment/Plan Assessment: 89-year-old female with a PMH significant for HTN, HLD, celiac disease, Waldenstrm's macroglobulinemia follows with Dr. Hannah, osteoporosis with multiple osteoporotic vertebral compression fractures, who presented to the [facility] ED complaining of intractable lower back pain. Assessment: 1.Intertrochanteric left femur fracture S/P ORIF POD 1 2. Lower back pain 3. Elevated Troponins 4. UTI 5. Compression fractures located at T10, L4,L1 6. History of Osteoporosis 7. History of dementia Plan: * Off telemetry, stable for discharge today to [facility] * Cardiology recomm apprecited * Orthopedic consult appreciated * Echocardiogram showed normal ejection fraction of 70% with impaired LV relaxation, mild mitral regurg, tricuspid regurg, aortic regurg, moderate to severe pulmonary hypertension * Continue to monitor off antibiotics * Pain control with Lidoderm patch and tylenol 650mg q8 prn and tylenol IV for severe pain. * Avoid narcotics * Daily dressing, Physical therapy with wightbearing as tolerated. * She will be discharged off anticoagulation per orthopedic consultation. Aspirin is on board. * Diet: Gluten-free * DVT Prophylaxis: SC Lovenox * Code: Full Code Problem List: 1. Closed intertrochanteric fracture of left femur Pain Ratin Pain Location: Left hip Pain Goal: Pain 4 or less Pain Plan: See medication Tomorrow's Labs & Rationales: NA
--- NOTE | 2018-02-02 11:54 | PN- Orthopedic ---
Subjective Subjective: Patient with mild complaints of postoperative left hip pain and back pain. No acute events overnight Objective Vital Signs and I&Os Vital Signs Date Time Temp Pulse Resp B/P B/P Pulse O2 O2 Flow FiO2 Mean Ox Delivery Rate 02/02 0930 97.7 79 22 118/58 02/02 0630 97.7 79 22 118/58 96 02/02 0000 Nasal 3.0L Cannula 02/01 2232 98.2 86 20 100/60 95 Nasal 3.0L Cannula 02/01 2051 86 100/60 02/01 1600 94 Nasal 3.0L Cannula 02/01 1524 97.7 81 20 102/54 98 Room Air Intake & Output 02/02 1600 02/02 0800 02/02 0000 02/01 1600 02/01 0800 02/01 0000 Intake Total 120 240 420 120 240 Output Total 175 225 125 325 250 Balance -55 15 295 -205 -10 Intake, Oral 120 240 420 120 240 Number 1 1 1 Bowel Movements Output, Urine 175 225 125 325 250 Patient 84 lb 5 oz 85 lb 8 oz Weight Weight Bed scale Bed scale Measurement Method Physical Exam: Well-developed well-nourished no apparent distress. HEENT: Atraumatic, extraocular motion intact Neck: Supple, no lymphadenopathy Respiratory: No respiratory distress Extremities: No edema Left lower extremity hip dressing in place, Dressing clean dry and intact with minimal bloody staining dressing changed, dry sterile dressing applied Incision without erythema Mild thigh swelling No signs of infection. No shortening or rotation Hip range of motion is limited and without unexpected pain Neurovascularly intact distally Bilateral calves are supple, nontender. Neuro: Alert and oriented x3 Psych: Mood affect normal, normal memory normal judgment. Skin: Warm and dry, no rash on exposed skin Assessment/Plan Assessment/Plan Postop day #2 status post left hip intramedullary rodding secondary to a left hip intertrochanteric fracture Daily dressing changes with dry sterile dressings, done today. Out of bed, weightbearing as tolerated. Physical therapy. Pain meds prn. No specific DVT prophylaxis required as per Gerard Llamas MD Outpatient follow-up 2 weeks after surgery with Gerard Llamas MD Orthopedically stable for discharge, please call with questions Core Measures Venous Thromboembolism VTE Risk Factors Age>40 No Mechanical VTE Prophylaxis d/t N/A MechProphylax Ordered No VTE Pharm Prophylaxis d/t NA PharmProphylax ordered
[2018-02-02 14:40] VITALS: BP 110/58
[2018-02-02 18:06] VITALS: BP 110/58
== END 2018-02-02 18:30 | DRG 480 ==
LOC: ERH 13:41 → 2NB 20:47 → ERHI 20:47 → 1NO 20:47 → ENRESERV 23:52 → 2NB 01-27 00:40 → 1NO 01-28 10:27 → ENTRNSPT 01-31 15:51 → CMPTRNSPT 01-31 16:07 → 1NO 02-02 18:30
PROVIDERS: Dermatology; Emergency Medicine; Physician Assistant Surgical; Student in an Organized Health Care Education/Training Program
PROC: 0QS704Z Reposition Left Upper Femur with Internal Fixation Device, Open Approach (ICD-10-PCS; principal; 2018-01-31)
DX: M80.08XA Age-related osteoporosis with current pathological fracture, vertebra(e), initial encounter for fracture (principal); I21.A1 Myocardial infarction type 2; N39.0 Urinary tract infection, site not specified; C88.0 Waldenstrom macroglobulinemia; K90.0 Celiac disease; W17.89XA Other fall from one level to another, initial encounter; Z91.81 History of falling; Y93.89 Activity, other specified; Y92.230 Patient room in hospital as the place of occurrence of the external cause; E78.5 Hyperlipidemia, unspecified; I10 Essential (primary) hypertension; Z88.8 Allergy status to other drugs, medicaments and biological substances; I25.2 Old myocardial infarction; I25.10 Atherosclerotic heart disease of native coronary artery without angina pectoris; Z90.49 Acquired absence of other specified parts of digestive tract; M54.5 Low back pain; S72.145A Nondisplaced intertrochanteric fracture of left femur, initial encounter for closed fracture; F03.90 Unspecified dementia, unspecified severity, without behavioral disturbance, psychotic disturbance, mood disturbance, and anxiety
CPT/HCPCS: 1NSP; 2NBP; ERO; 36592; 71045; 71046; 72100; 73030-LT; 73060-LT; 73090-LT; 73130-LT; 73502-LT; 73502-RT; 74230; 81001; 82436; 87086; 93005; 93010; 93306; 94799; 96372; 97110-GO; 97164-GP; 97530-GO; J0131; J0690; J0696; J1644; J1650; J1885; J3490; J7040; J7042

== ENCOUNTER 2018-03-12 09:23 | Observation (INO) | payer OTHER, MEDICARE ==
[~2018-03-12] VITALS: Ht 162.6 cm; Wt 34.0 kg
--- NOTE | 2018-03-12 09:54 | ED GENERAL ADULT ---
History of Present Illness General Chief Complaint: Lower Extremity Injury Stated Complaint: R LEG TINGLING Source: patient, family Exam Limitations: patient's age, poor historian Allergies Coded Allergies: gluten (CELIAC 05/10/17) phenobarbital (HIVES 05/10/17) Reconcile Medications Aspirin (Ecotrin*) 81 MG TABLET. 1 TAB PO BID HEART HEALTH (Reported) Cholecalciferol (Vitamin D3) (Vitamin D3) 2,000 UNIT TABLET 1 TAB PO DAILY VITAMIN SUPPORT (Reported) Fenofibrate Nanocrystallized (Fenofibrate) 145 MG TABLET 1 TAB PO DAILY TRIGLYCERIDES (Reported) Furosemide 20 MG TABLET 1 TAB PO BID WATER RETENTION (Reported) Lovastatin 40 MG TABLET 1 TAB PO DAILY CHOLESTEROL (Reported) with food Magnesium Oxide (Magnesium) 250 MG TABLET 1 TAB PO BID SUPPLEMENT (Reported) Metoprolol Tartrate 25 MG TABLET 1 TAB PO BID HEART (Reported) Omeprazole 20 MG CAPSULE. 1 CAP PO DAILY GI (Reported) Triage Note: BIBA FROM HOME, C/O R LEG TINGLING, RECENT RECENTLY DISCHARGED FROM REHAB FOR FX 3 VERTABRAE. (10 DAYS AGO). ALERT, DENIES PAIN NOW, PER EMS GAVE PT TRAMADOL 50 MG THIS AM. Triage Nurses Notes Reviewed? yes Onset: Abrupt Duration: hour(s):, constant Severity: severe HPI: 83yo female with PMH of 3 vertebral compression fractures, L hip fracture, celiac sprue c/o of back pain and decreased feeling in her R leg. Pt had been in rehab for recovery of fractures and undergoing PT. About 1 week ago, pt moved back home with . Pt has been walking with walker and has had constant residual back pain. 2 days ago, pt had increasing back pain. This morning, pt was able to get out of bed and use restroom. After returning to bed, she started to have decreased sensation in her R lower extremity and continuing increasing back pain. Pt complained of "not being able to feel or wiggle her toes, pins and needles in her leg,"and "my leg feels ." noted that she was not able to get out of bed. Her administered Tramadol to help with the pain. EMS was called shortly after. Pt is still complaining of some back pain but is no longer having the decreased sensation to her R lower extremity. Pt did state that her "pants are wet" because she was not able to go to the bathroom. Denies any fevers, chills, headaches, chest pain. Denies any recent trauma, injury, or falls. (Parvez Maldonado) Vital Signs & Intake/Output Vital Signs & Intake/Output Vital Signs Date Time Temp Pulse Resp B/P B/P Pulse O2 O2 Flow FiO2 Mean Ox Delivery Rate 03/12 1536 Nasal 3.0L Cannula 03/12 1055 98.0 72 18 124/65 95 Nasal 3.0L Cannula 03/12 1046 96 Nasal 3.0L Cannula 03/12 0928 96.8 84 20 129/61 89 Nasal 2.0L Cannula (Irma RODRIGUEZ,Juwan Sheldon) Past History Travel History Traveled to [place] past 21 day No Medical History Any Pertinent Medical History? see below for history Neurological: NONE EENT: cataracts (extraction) Cardiovascular: CAD (with coronary fistula), hyperlipidemia, post-operative CA Respiratory: NONE Gastrointestinal: upper GI bleed, diverticulitis with perforation, colostomy and reversal Celiac disease/Sprue Hepatic: NONE Renal: urinary tract infection with renolithiasis Musculoskeletal: osteoarthritis, OSTEOPOROSIS CHRONIC BACK PAIN Psychiatric: NONE Endocrine: NONE Blood Disorders: NONE Cancer(s): WALDENSTROM- MACROGLOBULINEMIA MD ALLERGY IMMUNOLOGY/Reproductive: NONE Other Medical Hx: umbilical hernia, questionable history of blood clots History of MRSA: No History of VRE: No History of CDIFF: No Surgical History Surgical History: cholecystectomy, COLOSTOMY WITH REVERSAL bladder procedure Psychosocial History Who do you live with Family Services at Home None What is your primary language Danish Tobacco Use: Never used ETOH Use: denies use Family History Family History, If Any: Relation not specified for: *No pertinent family history Hx Contributory? No (Parvez Maldonado) Review of Systems Review of Systems Constitutional: Reports: see HPI, weakness. EENTM: Reports: no symptoms. Respiratory: Reports: see HPI. Cardiovascular: Reports: see HPI. GI: Reports: no symptoms. Genitourinary: Reports: no symptoms. Musculoskeletal: Reports: see HPI. Skin: Reports: no symptoms. Neurological/Psychological: Reports: see HPI. Hematologic/Endocrine: Reports: no symptoms. Immunologic/Allergic: Reports: no symptoms. All Other Systems: Reviewed and Negative (Parvez Maldonado) Physical Exam Physical Exam General Appearance: awake, cachetic, lethargic, mild distress, thin, frail, very thin appearing older women laying on R side Head: atraumatic, normal appearance Eyes: Bilateral: normal appearance, PERRL, EOMI. Ears, Nose, Throat: normal pharynx, hearing grossly normal Neck: normal inspection, supple Respiratory: chest non-tender, initial O2 on RA was 88%; pt did not expression any SOB, distress Cardiovascular: regular rate/rhythm Gastrointestinal: soft, non-tender Back: decreased range of motion, severely kyphotic back with no evidence of ecchymosis, erythma, bleeding/ no tenderness to palpation of mid and lower back limited ROM; pt unable to roll onto her back Extremities: pelvis stable, limited range of motion, slow capillary refill Neurologic/Psych: awake, motor weakness, Sensation of light touch present on lower extremities bilaterally Unable to ellicit reflexes d/t pt positioning Skin: intact, normal color, warm/dry Lymphatic: no anterior cervical jaylin Comments: Pt is an overall frail, cachetic, weak older woman laying on her R side with inability to roll onto her back. She has limited ROM of bilateral extremities, decreased capillary refill, but has sensation. Core Measures ACS in differential dx? No CVA/TIA Diagnosis: No Sepsis Present: No Sepsis Focused Exam Completed? No (Allen GALLEGOS,Parvez) Progress Differential Diagnoses I considered the following diagnoses in my evaluation of the patient: Lumbar compression fracture, sciatica, cord compression, UTI, pneumonia, PE, Diagnostic Imaging: Viewed by Me: Radiology Read, CT Scan. Discussed w/RAD: Radiology Read, CT Scan. Radiology Impression: PATIENT: JOO VICENTE PRESENT AGE: 83 PATIENT ACCOUNT NO: [id number] : 37 LOCATION: [facility] ORDERING PHYSICIAN: Parvez GALLEGOS SERVICE DATE: 03/12/18 EXAM TYPE: RAD - XRY-PORTABLE CHEST XRAY EXAMINATION: XR PORTABLE CHEST CLINICAL INFORMATION: Shortness of breath. COMPARISON: Chest done on 03/20/2013 and 01/28/2018. TECHNIQUE: Portable frontal view of the chest was obtained. FINDINGS: Asymmetric low-lung volume is noted within the right hemithorax with stable curvilinear presumed pleuroparenchymal scar at right [id number] lung field with asymmetric prominence of the right perihilar region, unchanged since the available chest radiograph done on 03/20/2013. Specifically, the aerated lung hernandez bilaterally appear clear. The cardiomediastinal silhouette is remarkable for undulated tortuous descending thoracic aorta, unchanged. There is no pleural effusion present. Incidental note is made of a subcentimeter presumed bone island involving the right scapula, unchanged. IMPRESSION: No acute cardiopulmonary disease. DICTATED BY: Keli Retana MD DATE/TIME DICTATED:03/12/181119 DIGITAL PHOTO PRINTER:KELVIN DATE/TIME TRANSCRIBED:03/12/181119 CONFIDENTIAL, DO NOT COPY WITHOUT APPROPRIATE AUTHORIZATION. <Electronically signed in Other Vendor System> SIGNED BY: Keli Retana MD 03/12/18 1149, PATIENT: JOO VICENTE PRESENT AGE: 83 PATIENT ACCOUNT NO: [id number] : 37 LOCATION: [facility] ORDERING PHYSICIAN: Parvez GALLEGOS SERVICE DATE: 03/12/18 EXAM TYPE: CAT - CT LUMB SPINE WO IV CONTRAST EXAMINATION: CT LUMBAR SPINE WITHOUT CONTRAST CLINICAL INFORMATION: Low back pain. Recent fractures. Lower extremity weakness. COMPARISON: Lumbar spine CT scan 01/26/2018. TECHNIQUE: Body Fitter images were obtained. A CT acquisition of the lumbar spine was performed without intravenous administration of contrast. Data was reformatted into multiplanar images at the acquisition workstation. DLP: 166.42 mGy-cm FINDINGS: Known compression deformities of the L1 and L4 vertebral bodies are redemonstrated. There are new compression fractures of the L2 and L3 vertebral bodies. Specifically at L2 there is subtle impaction upper endplate resulting in 20% vertebral body height loss centrally. At L3 there is impaction of the lower endplate causing 30% vertebral body height loss centrally. No overt retropulsion of posterior cortex at either of these 2 levels. Grossly no evidence of canal compromise. Sacroiliac joints are symmetric. No evidence of acute sacral fracture. Limited visualization of the retroperitoneal structures reveals atherosclerotic calcification within the abdominal aorta and iliac vessels. Grossly no paraspinal soft tissue mass. IMPRESSION: There are new compression fractures of the L2 and L3 vertebral bodies. There is 20% vertebral body height loss at L2 and 30% vertebral height loss at L3. No overt retropulsion of posterior cortex at either of these 2 levels. Grossly no evidence of canal or neuroforaminal compromise within the lumbar spine. Existing compression deformities of the L1 and L4 vertebral bodies remain unchanged. DICTATED BY: Adis Maldonado MD DATE/TIME DICTATED:03/12/181108 DIGITAL PHOTO PRINTER:KELVIN DATE/TIME TRANSCRIBED:03/12/181108 CONFIDENTIAL, DO NOT COPY WITHOUT APPROPRIATE AUTHORIZATION. <Electronically signed in Other Vendor System> SIGNED BY: Adis Maldonado MD 03/12/18 1122, PATIENT: JOO VICENTE PRESENT AGE: 83 PATIENT ACCOUNT NO: [id number] : 37 LOCATION: [facility] ORDERING PHYSICIAN: Parvez GALLEGOS SERVICE DATE: 03/12/18 EXAM TYPE: CAT - CTA CHEST-PULMONARY EMBOLISM EXAMINATION: CT ANGIOGRAM OF THE CHEST WITH AND WITHOUT CONTRAST (CT PULMONARY ANGIOGRAM FOR PE) CLINICAL INFORMATION: Hypoxia. Rule out PE. COMPARISON: CT of the chest done on 04/18/[address] of the abdomen and pelvis done on 2016. TECHNIQUE: Prior to contrast administration, noncontrast localization images were obtained. Subsequently, multidetector volumetric imaging was performed from the thoracic inlet to below the diaphragms following the administration of 95 mL Optiray 320 intravenous contrast. No contrast reaction reported. Sagittal, coronal, and MIP oblique sagittal reformatted images were obtained on the CT workstation, uploaded to PACS, and reviewed. DLP: 166.4 mGy- cm FINDINGS: QUALITY OF STUDY/CONTRAST BOLUS: Satisfactory. PULMONARY ARTERIES: No central or segmental pulmonary emboli. THORACIC AORTA: Atherosclerotic disease is noted within the aorta and its branches without evidence of any aneurysm formation. Coronary arterial calcifications are noted. LUNG: Linear airspace disease is noted around the right major fissure, most consistent with pleural parenchymal scar, atelectasis, appears similar to prior study dated 01/2017. Approximately 1 cm pleural-based nonspecific nodular opacity is noted along the posterior, medial, superior aspect of the right hemithorax, in the region of the superior segment of right lower lobe of the lung, may represent atelectasis, infiltrate, subtle pleural thickening or combination thereof and less likely to be evolving neoplasm. Followup imaging to document resolution is recommended (see the thompson images). Interval development of nonspecific airspace disease is also noted at right lower lobe of the lung likely represents compressive atelectasis from asymmetric elevated right hemidiaphragm. The remainder of the lung hernandez are clear. The tracheobronchial tree appears patent. PLEURA: Trace amount of right-sided pleural effusion, thickening is noted, new since prior study. MEDIASTINUM: Normal heart size. No pericardial effusion. No hilar or mediastinal lymphadenopathy. No evidence of septal bowing or right heart strain. CHEST WALL/AXILLA: No axillary or internal mammary lymphadenopathy. OSSEOUS STRUCTURES: Interval development of severe compression fracture of T10 vertebral body is noted. Previously documented severe compression fracture of L1 vertebral body appears stable. Mild diffuse osteopenia is noted involving all the visualized bones. UPPER ABDOMEN: Interval development of air is noted within the liver, shows linear branching pattern, extends to the surface of the liver, mostly localized to the left lobe, may represent portal venous gas versus pneumobilia. No reflux of contrast into the hepatic veins to suggest elevated right heart pressures. IMPRESSION: 1. No CT evidence of pulmonary embolism. 2. Interval development of approximately 1 cm nonspecific peripheral nodular opacity identified within the right upper to mid hemithorax, may represent atelectasis, infiltrate, subtle pleural thickening or combination thereof and less likely to be evolving neoplasm, new since 2016. 3. New airspace disease at right lower lobe of the lung with trace amount of right-sided pleural effusion. 4. Evidence of intrahepatic air, may represent portal venous gas versus pneumobilia. Followup dedicated CT scan of the abdomen and pelvis with intravenous contrast may be considered for further clarification , if clinically appropriate. VTE: Negative. This critical result was discussed with ROSY Romero at 2:30 PM on 03/12/2018 and it was ascertained that the content and urgency of the report was understood at the time of direct communication. DICTATED BY: Keli Retana MD DATE/TIME DICTATED:03/12/181410 DIGITAL PHOTO PRINTER:KELVIN DATE/TIME TRANSCRIBED:03/12/181410 CONFIDENTIAL, DO NOT COPY WITHOUT APPROPRIATE AUTHORIZATION. <Electronically signed in Other Vendor System> SIGNED BY: Keli Retana MD 03/12/18 2677 Initial ED EKG: normal sinus rhythm, rate (79), BORDERLINE T WAVE ABNORMALITIES (Parvez Maldonado) Plan of Care: Orders Procedure Date/time Status CBC WITHOUT DIFFERENTIAL 03/13 06 Active BASIC ELECTROLYTES PLUS BUN&CR 03/13 06 Active Gluten Free Diet 03/12 L Complete Heart Healthy Diet 03/12 D Active Pathway - chart 03/12 1327 Active Pathway - chart 03/[address] in observation 03/12 1324 Active Misc Message 03/12 1324 Active ED Holding Orders 03/12 1324 Active Vital Signs 03/12 1324 Active Code Status 03/12 1324 Complete Code Status 03/12 1324 Active Patient Data 03/12 1222 Active Intake & Output 03/12 0933 Active URINALYSIS 03/12 0929 Complete TROPONIN LEVEL 03/12 09 Complete LACTIC ACID 03/12 09 Complete COMPREHENSIVE METABOLIC PANEL 03/12 09 Complete CBC WITHOUT DIFFERENTIAL 03/12 09 Complete EKG 03/12 0929 Active VTE Mechanical Prophylaxis 03/12 UNK Active Diet Message 03/12 UNK Active Current Medications Sig/Dillan Start time Last Medication Dose Stop Time Status Admin Magnesium Oxide 200 MG BID 03/12 2100 AC (Mag-Ox) Atorvastatin Calcium 10 MG 1700 03/12 1700 AC (Lipitor) Heparin Sodium 5,000 UNIT Q8 03/12 1400 AC (Porcine) Acetaminophen 650 MG Q8P PRN 03/12 1330 AC (Tylenol) Ibuprofen 600 MG Q8P PRN 03/12 1330 AC (Motrin) Lidocaine 1 PAT DAILY 03/12 1330 AC (Lidoderm) Metoprolol Tartrate 25 MG BID 03/12 1330 AC (Lopressor) Omeprazole 20 MG DAILY AC 03/12 1330 AC (Prilosec) Tramadol HCl 50 MG Q6P PRN 03/12 1330 AC (Ultram) Aspirin Buffered 81 MG BID 03/12 1329 AC (Ecotrin) Fenofibrate 145 MG DAILY 03/12 1329 AC (Tricor) Furosemide 20 MG BID 03/12 1329 AC (Lasix) Laboratory Tests 03/12/18 1229: Lactic Acid Cancelled 03/12/18 1020: Urinalysis MANY H, Urine Color YEL, Urine Clarity CLDY H, Urine pH 8.0, Ur Specific [place] 1.015, Urine Protein NEG, Urine Ketones NEG, Urine Nitrite NEG, Urine Bilirubin NEG, Urine Urobilinogen 0.2, Ur Leukocyte Esterase NEG, Ur Microscopic SEDIMENT EXAMINED, Urine WBC 1-3 H, Ur Epithelial Cells FEW, Urine Bacteria FEW H, Urine Hemoglobin NEG, Urine Glucose NEG 03/12/18 0950: Anion Gap 12, Estimated GFR > 60, BUN/Creatinine Ratio 63.3 H, Glucose 84, Lactic Acid 0.5 L, Calcium 9.0, Total Bilirubin 0.4, AST 25, ALT 34, Alkaline Phosphatase 56, Troponin I < 0.01, Total Protein 5.9 L, Albumin 3.2 L, Globulin 2.7, Albumin/Globulin Ratio 1.2, CBC w Diff NO MAN DIFF REQ, RBC 4.36, MCV 89.2, MCH 28.3, MCHC 31.8 L, RDW 16.0 H, MPV 8.1, Gran % 82.6 H, Lymphocytes % 9.5 L, Monocytes % 6.8, Eosinophils % 0.7, Basophils % 0.4, Absolute Granulocytes 6.6 H, Absolute Lymphocytes 0.8 L, Absolute Monocytes 0.5, Absolute Eosinophils 0.1, Absolute Basophils 0 (Irma RODRIGUEZ,Juwan Sheldon) Departure Departure Disposition: STILL A PATIENT Condition: Stable Clinical Impression Primary Impression: Compression fracture of lumbar vertebra Secondary Impressions: Gait instability, Hypoxia, Thoracic compression fracture Referrals: Adriana RODRIGUEZ,James Marshall (PCP/Family) Departure Forms: Customer Survey General Discharge Information Admission Note Documentation of Exam: Documentation of any treatments & extenuating circumstances including Concerns Regarding Discharge (functional status, medication knowledge or non-compliance, living conditions, etc.) that warrant an admission rather than observation: Observation Note Spoke With: Mao RODRIGUEZ,Shanae Zacarias Physician Advisor Notified: JUWAN TORRES DO Place Patient In: Non-ED OBS Care Area Rationale for Observation: My rational for observation is as follows . Physical therapy consultation. MRI low back. Orthopedic consultation. Case management consultation. Pain control. Follow-up with CT scan of abdomen and pelvis for abnormality with liver. Discussed with hospitalist. Due to afebrile and no white count patient will be held off antibiotics at this time. (Parvez Maldonado) PA/CRAWLER CRANE OPERATOR Co-Sign Statement Statement: ED Attending supervision documentation- [X] I saw and evaluated the patient. I have also reviewed all the pertinent lab results and diagnostic results. I agree with the findings and the plan of care as documented in the PA's/CRAWLER CRANE OPERATOR's documentation. Patient presents for evaluation of right lower extremity tingling. Patient has a history of degenerative changes of the lumbar spine. Physical examination reveals sensation intact right lower extremity with relatively slow capillary refill. [] I have reviewed the ED Record and agree with the PA's/CRAWLER CRANE OPERATOR's documentation. [] Additions or exceptions (if any) to the PAs/CRAWLER CRANE OPERATOR's note and plan are summarized below: [] (Irma RODRIGUEZ,Juwan Sheldon) Critical Care Note Critical Care Note Critical Care Time: non-applicable (Parvez Maldonado)
[2018-03-12 09:55] LABS: ABSOLUTE BASOPHIL COUNT 0 /CUMM (0.0-0.2); ABSOLUTE EOSINOPHIL COUNT 0.1 /CUMM (0.0-0.7); ABSOLUTE GRANULOCYTE CT 6.6 /CUMM (1.4-6.5); ABSOLUTE LYMPH COUNT 0.8 /CUMM (1.2-3.4); ABSOLUTE MONOCYTE COUNT 0.5 /CUMM (0.10-0.60); BASOPHIL % 0.4 % (0.0-2.0); EOSINOPHIL % 0.7 % (0-5); GRANULOCYTE % 82.6 % (42.2-75.2); HEMATOCRIT 38.9 % (37-47); MEAN CORPUSCULAR HGB 28.3 PG (27.0-31.0); MEAN CORPUSCULAR HGB CONC 31.8 G/DL (33.0-37.0); MEAN CORPUSCULAR VOLUME 89.2 FL (81.0-99.0); MEAN PLATELET VOLUME 8.1 FL (7.4-10.4); PLATELET COUNT 321 /CUMM (130-400); RED BLOOD CELL CT 4.36 /CUMM (4.20-5.40); WHITE BLOOD CELL COUNT 8.1 /CUMM (4.8-10.8)
--- NOTE | 2018-03-12 11:22 | CT SCAN REPORT ---
EXAMINATION: CT LUMBAR SPINE WITHOUT CONTRAST CLINICAL INFORMATION: Low back pain. Recent fractures. Lower extremity weakness. COMPARISON: Lumbar spine CT scan 01/26/2018. TECHNIQUE: Gray Tender images were obtained. A CT acquisition of the lumbar spine was performed without intravenous administration of contrast. Data was reformatted into multiplanar images at the acquisition workstation. DLP: 166.42 mGy-cm FINDINGS: Known compression deformities of the L1 and L4 vertebral bodies are redemonstrated. There are new compression fractures of the L2 and L3 vertebral bodies. Specifically at L2 there is subtle impaction upper endplate resulting in 20% vertebral body height loss centrally. At L3 there is impaction of the lower endplate causing 30% vertebral body height loss centrally. No overt retropulsion of posterior cortex at either of these 2 levels. Grossly no evidence of canal compromise. Sacroiliac joints are symmetric. No evidence of acute sacral fracture. Limited visualization of the retroperitoneal structures reveals atherosclerotic calcification within the abdominal aorta and iliac vessels. Grossly no paraspinal soft tissue mass. IMPRESSION: There are new compression fractures of the L2 and L3 vertebral bodies. There is 20% vertebral body height loss at L2 and 30% vertebral height loss at L3. No overt retropulsion of posterior cortex at either of these 2 levels. Grossly no evidence of canal or neuroforaminal compromise within the lumbar spine. Existing compression deformities of the L1 and L4 vertebral bodies remain unchanged.
--- NOTE | 2018-03-12 11:49 | RADIOLOGY REPORT ---
EXAMINATION: XR PORTABLE CHEST CLINICAL INFORMATION: Shortness of breath. COMPARISON: Chest done on 03/20/2013 and 01/28/2018. TECHNIQUE: Portable frontal view of the chest was obtained. FINDINGS: Asymmetric low-lung volume is noted within the right hemithorax with stable curvilinear presumed pleuroparenchymal scar at right [id number] lung field with asymmetric prominence of the right perihilar region, unchanged since the available chest radiograph done on 03/20/2013. Specifically, the aerated lung hernandez bilaterally appear clear. The cardiomediastinal silhouette is remarkable for undulated tortuous descending thoracic aorta, unchanged. There is no pleural effusion present. Incidental note is made of a subcentimeter presumed bone island involving the right scapula, unchanged. IMPRESSION: No acute cardiopulmonary disease.
--- NOTE | 2018-03-12 13:22 | History & Physical ---
Milka Roberts 03/12/18 1321: General Information and HPI MD Statement: I have seen and personally examined JOO VICENTE and documented this H&P. The patient is a 83 year old F who presented with a patient stated chief complaint of [unable to get out of bed]. 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 Patient was recently discharged to [facility] on 02/02/18 after being treated for intractable back pain with Lidoderm patch and Tylenol. At that time patient was found to have a stable L1 fracture, her hospital course was complicated by a fall and she got a left hip intramedullary satnam because of left hip fracture. Patient today comes in with back pain. She says she was in her usual state when she was discharged from [facility] last week. Denies any episodes of fall/trauma at home. On Sunday she noticed severe back pain, which progressively worsened on Sunday. She describes the pain as 9/10, sharp pain in lower back, worsened on movement and relieved with rest and tramadol. Patient also reports of associated numbness/tingling in right foot. Patient lives at home with . Denies any headache/chest pain/dizziness/ chest pain/abdominal discomfort/burning micturition/pain swelling lower extremity. Allergies/Medications Allergies: Coded Allergies: gluten (CELIAC 05/10/17) phenobarbital (HIVES 05/10/17) Past History Travel History Traveled to [place] past 21 day No Medical History Neurological: NONE EENT: cataracts (extraction) Cardiovascular: CAD (with coronary fistula), hyperlipidemia, post-operative [place] Respiratory: NONE Gastrointestinal: upper GI bleed, diverticulitis with perforation, colostomy and reversal Celiac disease/Sprue Hepatic: NONE Renal: urinary tract infection with renolithiasis Musculoskeletal: osteoarthritis, OSTEOPOROSIS CHRONIC BACK PAIN Psychiatric: NONE Endocrine: NONE Blood Disorders: NONE Cancer(s): WALDENSTROM- MACROGLOBULINEMIA 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 spouse Services at Home: None Primary Language: Danish ETOH Use: denies use Functional Ability Ambulation: walker Review of Systems Review of Systems Constitutional: Reports: see HPI. Exam & Diagnostic Data Last 24 Hrs of Vital Signs/I&O Vital Signs Date Time Temp Pulse Resp B/P B/P Pulse O2 O2 Flow FiO2 Mean Ox Delivery Rate 03/12 1055 98.0 72 18 124/65 95 Nasal 3.0L Cannula 03/12 1046 96 Nasal 3.0L Cannula 03/12 0928 96.8 84 20 129/61 89 Nasal 2.0L Cannula Intake & Output 03/12 1600 03/12 0800 03/12 0000 Intake Total 0 Output Total 0 Balance 0 Intake, Oral 0 Output, Urine 0 Patient 34.927 kg Weight Weight Reported by Patient Measurement Method Assessment/Plan Assessment: Patient is 83-year-old female with past medical history of Waldenstrom Macroglobulinemia being followed by Dr. Elliott, coronary artery disease, demand ischemia, hyperlipidemia, celiac disease on gluten-free diet came into ER with chief complaint of unable to get out of bed this morning. Patient was recently discharged to [facility] on 02/02/18 after being treated for intractable back pain with Lidoderm patch and Tylenol. At that time patient was found to have a stable L1 fracture, her hospital course was complicated by a fall and she got a left hip intramedullary satnam because of left hip fracture. Patient today comes in with back pain. She says she was in her usual state when she was discharged from [facility] last week. Denies any episodes of fall/trauma at home. On Sunday she noticed severe back pain, which progressively worsened on Sunday. She describes the pain as 9/10, sharp pain in lower back, worsened on movement and relieved with rest and tramadol. Patient also reports of associated numbness/tingling in right foot. Patient lives at home with . Denies any headache/chest pain/dizziness/ chest pain/abdominal discomfort/burning micturition/pain swelling lower extremity. Labs and vitals as above. Chest x-ray normal CT lumbar spine shows new compression fracture of L2 and L3 with 20% and 30% height loss respectively. Assessment and plan Patient will be monitored on general medicine floor as an observation for overnight. Pain management with Lidoderm patch, Tylenol and tramadol. Will call orthopedic surgeon to evaluate the patient. Patient can eat regular diet which is gluten-free. We'll continue her on her home meds including aspirin, fenofibrate, furosemide, lovastatin, mag oxide, metoprolol, omeprazole. DVT prophylaxis subcutaneous heparin Patient is full code As Ranked By This Provider Problem List: 1. Intractable low back pain 2. Compression fracture Core Measures/Misc (04/29) Acute Coronary Syndrome ACS Diagnosis: No Congestive Heart Failure Congestive Heart Failure Diagnosis No Cerebrovascular Accident CVA/TIA Diagnosis: No VTE (View Protocol) VTE Risk Factors Age>40 No Mechanical VTE Prophylaxis d/t N/A MechProphylax Ordered No VTE Pharm Prophylaxis d/t NA PharmProphylax ordered Sepsis (View protocol) Sepsis Present: No If YES complete Sepsis Event Note If YES complete Sepsis Event Note Dano Macedo MD 03/12/18 3480: General Information and HPI Allergies/Medications Home Med list Acetaminophen (Tylenol) 325 MG TABLET 650 MG PO 4XDP PRN BACK PAIN Aspirin (Ecotrin*) 81 MG TABLET.DR 1 TAB PO BID HEART HEALTH (Reported) Celecoxib (Celebrex) 100 MG CAPSULE 100 MG PO BID BACK PAIN Cholecalciferol (Vitamin D3) (Vitamin D3) 2,000 UNIT TABLET 1 TAB PO DAILY VITAMIN SUPPORT (Reported) Fenofibrate Nanocrystallized (Fenofibrate) 145 MG TABLET 1 TAB PO DAILY TRIGLYCERIDES (Reported) Furosemide 20 MG TABLET 1 TAB PO BID WATER RETENTION (Reported) Lidocaine (Lidoderm) 5 % ADH..PATCH 1 PAT TOP DAILY BACK PAIN Wear for 12 hours and keep off for 12 hours Lovastatin 40 MG TABLET 1 TAB PO DAILY CHOLESTEROL (Reported) with food Magnesium Oxide (Magnesium) 250 MG TABLET 1 TAB PO BID SUPPLEMENT (Reported) Metoprolol Tartrate 25 MG TABLET 1 TAB PO BID HEART (Reported) Omeprazole 20 MG CAPSULE.DR 1 CAP PO DAILY GI (Reported) Core Measures/Misc (04/29) Sepsis (View protocol) If YES complete Sepsis Event Note If YES complete Sepsis Event Note Attending MD Review Statement Attending Statement Attending MD Statement: examined this patient, discuss w/resident/PA/SENIOR GRANT WRITER, agreed w/resident/PA/SENIOR GRANT WRITER, discussed with family, reviewed EMR data (avail), reviewed images, amended to note Attending Assessment/Plan: The patient is an 83 yo female with h/o Waldenstrom's Macroglobulinemia ( followed by Dr. Hannah), CAD, HL, celiac disease, and osteoporosis (h/o multiple spinal compression fractures and recent hip fracture) who presented on the day of admission from home (she had been home x 1 week from [facility], [place]) with c /o being unable to get out of bed and some right lower extremity numbness/ difficulty moving toes and increased lower back pain x 2 days. At the time of her last admission (discharged 02/02/18) she fell and had a hip fracture and subsequent ORIF. She was noted to have delirium related to condition and meds. She was sent to rehab and just returned home. She informed me that right leg symptoms had resolved when I had seen her in the ED. She denied any bladder or bowel incontinence, fever, or chest pain. She was noted to be hypoxemic with pulse ox 89% on 2L (95% on 3L- she is normally not on oxygen). Physical Exam: VS: T 96.8, P 84, R 20, BP 129/61, PO 89% 2L/96% 3L HEENT: eyes- PERRL, EOMI columba- dry mucosa Neck: no JVD/bruits Chest: diminished breath sounds at bases, no rhonchi/rales/wheeze Cor: RRR nl S1, S2 Abd: BS+, soft, NT Ext: no edema, pulses 1+ Back: no tenderness/spasm, + severe thoracic kyphosis Labs/Tests- as above Impression/Plan: #Gait Instability/Severe Back Pain- secondary to multiple compression fractures- some new as per CT report. She was discharged from [facility] 1 week ago to home. Had some RLE numbness noted with difficulty moving toes (transient). Doubt central neuro issue. Plan: Patient being brought in to general medicine for OBServation as per case management. Control pain- tylenol, NSAIDS, lidoderm, etc. Avoid strong narcotics (h/ o delirium). Orthopedic/PT/OT consults. #Acute Hypoxic Respiratory Failure- may in part be related to severe kyphosis/ atelectasis. No clinical pneumonia (?some findings on CT), no pulmonary embolism per CTPA. Plan: Nasal oxygen- maintain pulse ox 92%+. Incentive spirometry. Monitor if develops evidence of pneumonia. #Osteoporosis- s/p multiple fractures as above. Not clear if she has ever had treatment. The patient states Dr. Hannah gave her IV treatments in the past (? chemo). The patient is gravely disabled due to fractures and had recent hip fracture as well. Plan: Continue Ca/Vit D. Consider more aggressive osteoporosis care. #H/O Waldenstrom's Macroglobulinemia- followed by Dr. Hannah. Not on active therapy. Plan: Follow-up with Dr. Hannah. #HTN- on Metoprolol. Plan: Continue Metoprolol. #GERD- on Omeprazole. Plan: Continue Omeprazole. #Hyperlipidemia- on Lovastatin/Fenofibrate. Plan: Continue statin/Fenofibrate. #H/O Delirium- on prior admission. Plan: Avoid narcotics or other meds that may alter mental status.
--- NOTE | 2018-03-12 15:12 | CT SCAN REPORT ---
EXAMINATION: CT ANGIOGRAM OF THE CHEST WITH AND WITHOUT CONTRAST (CT PULMONARY ANGIOGRAM FOR PE) CLINICAL INFORMATION: Hypoxia. Rule out PE. COMPARISON: CT of the chest done on 04/18/[address] of the abdomen and pelvis done on 05/10/2017. TECHNIQUE: Prior to contrast administration, noncontrast localization images were obtained. Subsequently, multidetector volumetric imaging was performed from the thoracic inlet to below the diaphragms following the administration of 95 mL Optiray 320 intravenous contrast. No contrast reaction reported. Sagittal, coronal, and MIP oblique sagittal reformatted images were obtained on the CT workstation, uploaded to PACS, and reviewed. DLP: 166.4 mGy-cm FINDINGS: QUALITY OF STUDY/CONTRAST BOLUS: Satisfactory. PULMONARY ARTERIES: No central or segmental pulmonary emboli. THORACIC AORTA: Atherosclerotic disease is noted within the aorta and its branches without evidence of any aneurysm formation. Coronary arterial calcifications are noted. LUNG: Linear airspace disease is noted around the right major fissure, most consistent with pleural parenchymal scar, atelectasis, appears similar to prior study dated 04/18/2017. Approximately 1 cm pleural-based nonspecific nodular opacity is noted along the posterior, medial, superior aspect of the right hemithorax, in the region of the superior segment of right lower lobe of the lung, may represent atelectasis, infiltrate, subtle pleural thickening or combination thereof and less likely to be evolving neoplasm. Followup imaging to document resolution is recommended (see the thompson images). Interval development of nonspecific airspace disease is also noted at right lower lobe of the lung likely represents compressive atelectasis from asymmetric elevated right hemidiaphragm. The remainder of the lung hernandez are clear. The tracheobronchial tree appears patent. PLEURA: Trace amount of right-sided pleural effusion, thickening is noted, new since prior study. MEDIASTINUM: Normal heart size. No pericardial effusion. No hilar or mediastinal lymphadenopathy. No evidence of septal bowing or right heart strain. CHEST WALL/AXILLA: No axillary or internal mammary lymphadenopathy. OSSEOUS STRUCTURES: Interval development of severe compression fracture of T10 vertebral body is noted. Previously documented severe compression fracture of L1 vertebral body appears stable. Mild diffuse osteopenia is noted involving all the visualized bones. UPPER ABDOMEN: Interval development of air is noted within the liver, shows linear branching pattern, extends to the surface of the liver, mostly localized to the left lobe, may represent portal venous gas versus pneumobilia. No reflux of contrast into the hepatic veins to suggest elevated right heart pressures. IMPRESSION: 1. No CT evidence of pulmonary embolism. 2. Interval development of approximately 1 cm nonspecific peripheral nodular opacity identified within the right upper to mid hemithorax, may represent atelectasis, infiltrate, subtle pleural thickening or combination thereof and less likely to be evolving neoplasm, new since 04/18/2017. 3. New airspace disease at right lower lobe of the lung with trace amount of right-sided pleural effusion. 4. Evidence of intrahepatic air, may represent portal venous gas versus pneumobilia. Followup dedicated CT scan of the abdomen and pelvis with intravenous contrast may be considered for further clarification, if clinically appropriate. VTE: Negative. This critical result was discussed with ROSY Romero at 2:30 PM on 03/12/2018 and it was ascertained that the content and urgency of the report was understood at the time of direct communication.
--- NOTE | 2018-03-12 16:58 | Cons- Orthopedic ---
General Information and HPI Consulting Request Date of Consult: 03/12/18 Requested By: Dano Macedo MD Reason for Consult: L2 and L3 compression fractures Source of Information: patient, family History of Present Illness: 83-year-old female with a past medical history of Waldenstrom macroglobulinemia, CAD, hyperlipidemia, celiac disease, and osteoporosis with known T10, L1, and L4 compression fractures, status post IM nail for left hip fracture on 01/31/18 presents with increased low back pain and difficulty with ambulation. The patient and her deny any injury or inciting event. Patient states that she woke with increased pain and was unable to get out of bed. She was recently discharged from [facility] following her recent admission to [facility] for back pain and concurrent left hip fracture. Her notes increased confusion yesterday but no new medications or other changes. She currently takes Tylenol and tramadol for pain. Allergies/Medications Allergies: Coded Allergies: gluten (CELIAC 05/10/17) phenobarbital (HIVES 05/10/17) Home Med List: Aspirin (Ecotrin*) 81 MG TABLET.DR 1 TAB PO BID Nexidia (Reported) Cholecalciferol (Vitamin D3) (Vitamin D3) 2,000 UNIT TABLET 1 TAB PO DAILY VITAMIN SUPPORT (Reported) Fenofibrate Nanocrystallized (Fenofibrate) 145 MG TABLET 1 TAB PO DAILY TRIGLYCERIDES (Reported) Furosemide 20 MG TABLET 1 TAB PO BID WATER RETENTION (Reported) Lovastatin 40 MG TABLET 1 TAB PO DAILY CHOLESTEROL (Reported) with food Magnesium Oxide (Magnesium) 250 MG TABLET 1 TAB PO BID SUPPLEMENT (Reported) Metoprolol Tartrate 25 MG TABLET 1 TAB PO BID HEART (Reported) Omeprazole 20 MG CAPSULE.DR 1 CAP PO DAILY GI (Reported) Past History Medical History Neurological: NONE EENT: cataracts (extraction) Cardiovascular: CAD (with coronary fistula), hyperlipidemia, post-operative [place] Respiratory: NONE Gastrointestinal: upper GI bleed, diverticulitis with perforation, colostomy and reversal Celiac disease/Sprue Hepatic: NONE Renal: urinary tract infection with renolithiasis Musculoskeletal: osteoarthritis, OSTEOPOROSIS CHRONIC BACK PAIN Psychiatric: NONE Endocrine: NONE Blood Disorders: NONE Cancer(s): WALDENSTROM- MACROGLOBULINEMIA 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 spouse Services at Home: None Primary Language: Zambian ETOH Use: denies use Functional Ability Ambulation: walker Review of Systems Review of Systems: No recent illnesses. Recent discharge from SNF. Per , increased confusion yesterday. Exam & Diagnostic Data Vital Signs and I&O Vital Signs Date Time Temp Pulse Resp B/P B/P Pulse O2 O2 Flow FiO2 Mean Ox Delivery Rate 03/12 1743 Nasal 3.0L Cannula 03/12 1704 97.8 72 18 130/60 98 Room Air 03/12 1620 58 121/60 03/12 1550 97.1 58 16 121/60 96 Room Air 03/12 1536 Nasal 3.0L Cannula 03/12 1055 98.0 72 18 124/65 95 Nasal 3.0L Cannula 03/12 1046 96 Nasal 3.0L Cannula 03/12 0928 96.8 84 20 129/61 89 Nasal 2.0L Cannula Intake & Output 03/12 1600 03/12 0800 03/12 0000 03/11 1600 03/11 0800 03/11 0000 Intake Total 0 Output Total 0 Balance 0 Intake, Oral 0 Output, Urine 0 Patient 77 lb 0.01 oz Weight Weight Reported by Patient Measurement Method Physical Exam: Cachectic-appearing female; alert, awake, not consistently oriented. Patient lying on her right side in bed. Comfortable, in no acute distress. at bedside. No tenderness to palpation over the midline or paraspinal thoracic and lumbar spines. No step-offs appreciated. No tenderness over bilateral SI joints or buttock. No tenderness palpation of the left hip. Intact EHL and ankle DF/PF bilaterally. Patient reports intact sensation to light touch of her bilateral lower extremities. No bilateral calf pain. No evidence of clonus in bilateral lower extremities. Last 24 Hours of Labs: Laboratory Tests 03/12 03/12 1229 1020 Chemistry Lactic Acid Cancelled Urines Urinalysis MANY H Urine Color (YEL,AMB,STR) YEL Urine Clarity (CLEAR) CLDY H Urine pH (5.0 - 8.0) 8.0 Ur Specific Terrell (1.001 - 1.035) 1.015 Urine Protein (NEG,<30 MG/DL) NEG Urine Ketones (NEG) NEG Urine Nitrite (NEG) NEG Urine Bilirubin (NEG) NEG Urine Urobilinogen (0.1 - 1.0 EU/dl) 0.2 Ur Leukocyte Esterase (NEG) NEG Ur Microscopic SEDIMENT EXAMINED Urine WBC (0 - 2 /HPF) 1-3 H Ur Epithelial Cells (NONE,FEW) FEW Urine Bacteria (NEG/NONE) FEW H Urine Hemoglobin (NEG) NEG Urine Glucose (N MG/DL) NEG 03/12 0950 Chemistry Sodium (137 - 145 mmol/L) 141 Potassium (3.5 - 5.1 mmol/L) 4.4 Chloride (98 - 107 mmol/L) 103 Carbon Dioxide (22 - 30 mmol/L) 26 Anion Gap (5 - 16) 12 BUN (7 - 17 mg/dL) 19 H Creatinine (0.5 - 1.0 mg/dL) 0.3 L Estimated GFR (>60 ml/min) > 60 BUN/Creatinine Ratio (7 - 25 %) 63.3 H Glucose (65 - 99 mg/dL) 84 Lactic Acid (0.7 - 2.1 mmol/L) 0.5 L Calcium (8.4 - 10.2 mg/dL) 9.0 Total Bilirubin (0.2 - 1.3 mg/dL) 0.4 AST (14 - 36 U/L) 25 ALT (9 - 52 U/L) 34 Alkaline Phosphatase (<127 U/L) 56 Troponin I (< 0.11 ng/ml) < 0.01 Total Protein (6.3 - 8.2 g/dL) 5.9 L Albumin (3.5 - 5.0 g/dL) 3.2 L Globulin (1.9 - 4.2 gm/dL) 2.7 Albumin/Globulin Ratio (1.1 - 2.2 %) 1.2 Hematology CBC w Diff NO MAN DIFF REQ WBC (4.8 - 10.8 /CUMM) 8.1 RBC (4.20 - 5.40 /CUMM) 4.36 Hgb (12.0 - 16.0 G/DL) 12.4 Hct (37 - 47 %) 38.9 MCV (81.0 - 99.0 FL) 89.2 MCH (27.0 - 31.0 PG) 28.3 MCHC (33.0 - 37.0 G/DL) 31.8 L RDW (11.5 - 14.5 %) 16.0 H Plt Count (130 - 400 /CUMM) 321 MPV (7.4 - 10.4 FL) 8.1 Gran % (42.2 - 75.2 %) 82.6 H Lymphocytes % (20.5 - 51.1 %) 9.5 L Monocytes % (1.7 - 9.3 %) 6.8 Eosinophils % (0 - 5 %) 0.7 Basophils % (0.0 - 2.0 %) 0.4 Absolute Granulocytes (1.4 - 6.5 /CUMM) 6.6 H Absolute Lymphocytes (1.2 - 3.4 /CUMM) 0.8 L Absolute Monocytes (0.10 - 0.60 /CUMM) 0.5 Absolute Eosinophils (0.0 - 0.7 /CUMM) 0.1 Absolute Basophils (0.0 - 0.2 /CUMM) 0 Imaging Results: CT Lumbar Spine (03/12/18): There are new compression fractures of the L2 and L3 vertebral bodies. There is 20% vertebral body height loss at L2 and 30% vertebral height loss at L3. No overt retropulsion of posterior cortex at either of these 2 levels. Grossly no evidence of canal or neuroforaminal compromise within the lumbar spine. Existing compression deformities of the L1 and L4 vertebral bodies remain unchanged. CT PA (03/12/18): 1. No CT evidence of pulmonary embolism. 2. Interval development of approximately 1 cm nonspecific peripheral nodular opacity identified within the right upper to mid hemithorax, may represent atelectasis, infiltrate, subtle pleural thickening or combination thereof and less likely to be evolving neoplasm, new since 04/18/2017. 3. New airspace disease at right lower lobe of the lung with trace amount of right-sided pleural effusion. 4. Evidence of intrahepatic air, may represent portal venous gas versus pneumobilia. Followup dedicated CT scan of the abdomen and pelvis with intravenous contrast may be considered for further clarification , if clinically appropriate. Assessment/Plan Assessment/Plan 83-year-old female with a history of Waldenstrom macroglobulinemia, CAD, hyperlipidemia, celiac disease, and osteoporosis with known stable T10, L1 and L4 compression fractures, status post IM nail for left hip fracture on 01/31/18, presents with increased low back pain and inability to ambulate. She was found to have acute L2 and L3 compression fractures with minimal loss of height. Patient is comfortable at this time, however is mildly confused. The patient had a prior hospitalization in January 2018 with complaints of low back pain. During her hospitalization, she became confused and attempted to ambulate independently, resulting in a left hip fracture. 1. Recommend use of Lidoderm patches, ice/heat, and Tylenol for pain control. Strongly recommend avoidance of narcotics given patient's current confusion and prior injury during her previous hospitalization. Recommend close observation, possibly a sitter, as well as frequent reorientation during her hospitalization. She is high risk for repeat falls given her history. 2. Mobilization with physical therapy as tolerated. 3. Continue neuro evaluation; patient is currently stable at this time. 4. May consider bracing if continued pain, however currently comfortable. Consult Acknowledgment - Thank you for your consult request. Attending MD Review Statement Attending Statement Attending MD Statement: examined this patient, discussed with family, reviewed images
[2018-03-12 17:04] VITALS: BP 130/60
[2018-03-12 22:34] VITALS: BP 116/60
[2018-03-13 06:15] VITALS: BP 110/70
--- NOTE | 2018-03-13 08:13 | PN- Housestaff ---
Torey Ledezma 03/13/18 0812: Subjective Follow-up For: Vertebral Compression Fractures Subjective: Afebrile overnight. Pt. continues to have low back pain that has improved since yesterday. Pt. states her discomfort is a sharp, positional lower back pain rated as 5 out of 10. Patient denies radiation down the legs. Patient states that leaning to either side or sitting more vertically generally helps her pain. Patient states Tramadol helped her the most for the back discomfort, likely because it helped with her sleep. Patient's last BM was one and a half days ago. Patient otherwise denies chest pain, dyspnea, fatigue, fevers, and chills. Review of Systems Constitutional: Reports: see HPI. Objective Last 24 Hrs of Vital Signs/I&O Vital Signs Date Time Temp Pulse Resp B/P B/P Pulse O2 O2 Flow FiO2 Mean Ox Delivery Rate 03/13 1230 Nasal 3.0L Cannula 03/13 1039 96 110/60 03/13 0615 97.7 66 18 110/70 92 03/12 2234 97.9 60 18 116/60 97 03/12 2150 94 Nasal 3.0L Cannula 03/12 2022 72 130/60 03/12 1743 Nasal 3.0L Cannula 03/12 1704 97.8 72 18 130/60 98 Room Air 03/12 1620 58 121/60 03/12 1550 97.1 58 16 121/60 96 Room Air 03/12 1536 Nasal 3.0L Cannula Intake & Output 03/13 1600 03/13 0800 03/13 0000 Intake Total 130 250 Output Total Balance 130 250 Intake, IV 10 10 Intake, Oral 120 240 Patient 74 lb 15.98 oz Weight Weight Bed scale Measurement Method Physical Exam General Appearance: Alert, Oriented X3, Cooperative, No Acute Distress Skin: No Breakdown HEENT: Atraumatic Neck: Supple, No JVD Cardiovascular: Regular Rate, Normal S1, Normal S2 Lungs: Clear to Auscultation, Normal Air Movement Abdomen: Soft, No Tenderness Extremities: No Edema, Normal Pulses Assessment/Plan Assessment: Patient is 83-year-old female with past medical history of Waldenstrom Macroglobulinemia being followed by Dr. Elliott, coronary artery disease, demand ischemia, hyperlipidemia, celiac disease on gluten-free diet came into ER with chief complaint of unable to get out of bed this morning. Patient was recently discharged to [facility] on 02/02/18 after being treated for intractable back pain with Lidoderm patch and Tylenol. At that time patient was found to have a stable L1 fracture, her hospital course was complicated by a fall and she got a left hip intramedullary satnam because of left hip fracture. Patient today comes in with back pain. She says she was in her usual state when she was discharged from [facility] last week. Denies any episodes of fall/trauma at home. On Sunday she noticed severe back pain, which progressively worsened on Sunday. She describes the pain as 9/10, sharp pain in lower back, worsened on movement and relieved with rest and tramadol. Patient also reports of associated numbness/tingling in right foot. Patient lives at home with . Denies any headache/chest pain/dizziness/ chest pain/abdominal discomfort/burning micturition/pain swelling lower extremity. #Gait Instability/Severe Back Pain- secondary to multiple compression fractures- some new as per CT report. She was discharged from [facility] 1 week ago to home. Had some RLE numbness noted with difficulty moving toes (transient). Doubt central neuro issue. Plan: Patient being brought in to general medicine for OBServation as per case management. Control pain- tylenol, NSAIDS, lidoderm, etc. Avoid strong narcotics (h/ o delirium). Orthopedic/PT/OT consults. #Acute Hypoxic Respiratory Failure- may in part be related to severe kyphosis/ atelectasis. No clinical pneumonia (?some findings on CT), no pulmonary embolism per CTPA. Plan: Nasal oxygen- maintain pulse ox 92%+. Incentive spirometry. Monitor if develops evidence of pneumonia. #Osteoporosis- s/p multiple fractures as above. Not clear if she has ever had treatment. The patient states Dr. Hannah gave her IV treatments in the past (? chemo). The patient is gravely disabled due to fractures and had recent hip fracture as well. Plan: Continue Ca/Vit D. Consider more aggressive osteoporosis care. #H/O Waldenstrom's Macroglobulinemia- followed by Dr. Hannah. Not on active therapy. Plan: Follow-up with Dr. Hannah.- secondary to multiple compression fractures- some new as per CT report. She was discharged from [facility] 1 week ago to home. Had some RLE numbness noted with difficulty moving toes (transient). Doubt central neuro issue. Plan: Patient being brought in to general medicine for OBServation as per case management. Control pain- tylenol, NSAIDS, lidoderm, etc. Avoid strong narcotics (h/ o delirium). Orthopedic/PT/OT consults. Problem List: 1. Compression fracture of lumbar vertebra 2. Intractable low back pain Pain Ratin Pain Location: Lower lumbar spine Pain Goal: Pain 4 or less Pain Plan: Continue with Lidoderm patch; Start Celebrex 100 mg BID for back pain and Tylenol IV for pain scale 7-10 Tomorrow's Labs & Rationales: Recommend daily morning labs Daon Macedo MD 03/13/18 1228: Attending MD Review Statement Attending Statement Attending MD Statement: examined this patient, discuss w/resident/PA/BROACH OPERATOR, agreed w/resident/PA/BROACH OPERATOR, discussed with family, reviewed EMR data (avail), discussed with nursing, discussed with case mgmt, amended to note Attending Assessment/Plan: The patient was seen and discussed with house staff and above staff. Was alert at the time of rounds, however more confused a couple of hours later. She is very sensitive to narcotics (including Tramadol). Will try IV tylenol, po Celebrex 100 mg bid, and Lidoderm (already has) for pain and follow. PT evaluation for consideration of return to [facility]. Orthopedic input appreciated.
[2018-03-13 09:22] LABS: ABSOLUTE BASOPHIL COUNT 0 /CUMM (0.0-0.2); ABSOLUTE EOSINOPHIL COUNT 0.1 /CUMM (0.0-0.7); ABSOLUTE GRANULOCYTE CT 2.8 /CUMM (1.4-6.5); ABSOLUTE MONOCYTE COUNT 0.4 /CUMM (0.10-0.60); BASOPHIL % 0.5 % (0.0-2.0); EOSINOPHIL % 1.2 % (0-5); GRANULOCYTE % 65.9 % (42.2-75.2); HEMATOCRIT 38.4 % (37-47); MEAN CORPUSCULAR HGB 28.8 PG (27.0-31.0); MEAN CORPUSCULAR HGB CONC 32.3 G/DL (33.0-37.0); MEAN CORPUSCULAR VOLUME 89.4 FL (81.0-99.0); MEAN PLATELET VOLUME 9.3 FL (7.4-10.4); PLATELET COUNT 297 /CUMM (130-400); RBC DISTRIBUTION WIDTH 15.4 % (11.5-14.5); WHITE BLOOD CELL COUNT 4.3 /CUMM (4.8-10.8)
[2018-03-13 14:45] VITALS: BP 104/60
[2018-03-13 15:40] VITALS: BP 104/60
[2018-03-13] MEDS ORDERED: LIDODERM1 EACH TOP (15:45)
[2018-03-13] MEDS ORDERED: CELEBREX100 M1 PO (15:45)
[2018-03-13] MEDS ORDERED: TYLENOL325 M1 PO (15:45)
--- NOTE | 2018-03-13 15:54 | Patient Discharge Instructions ---
Discharge Instructions General Discharge Information You were seen/treated for: Back Pain Compression Fractures Special Instructions: 1. Follow up with orthopedic surgeon (Dr. Carpio) 2. Continue physical therapy 3. Please take medications as prescribed 4. Please use the incentive spirometry to help with your breathing Diet Continue normal diet: No Recommended Diet: Gluten Free Activity Full Activity/No Limits: No Activity Self Limited: Yes Acute Coronary Syndrome Inclusion Criteria At DC or during hospital stay patient has or had the following: ACS DIAGNOSIS No Discharge Core Measures Meds if any: Prescribed or Continued at Discharge Meds if any: NOT Prescribed or Continued at Discharge Congestive Heart Failure Inclusion Criteria At DC or during hospital stay patient has or had the following: CHF DIAGNOSIS No Discharge Core Measures Meds if any: Prescribed or Continued at Discharge Meds if any: NOT Prescribed or Continued at Discharge Cerebrovascular accident Inclusion Criteria At DC or during hospital stay patient has or had the following: CVA/TIA Diagnosis No Discharge Core Measures Meds if any: Prescribed or Continued at Discharge Meds if any: NOT Prescribed or Continued at Discharge Venous thromboembolism Inclusion Criteria VTE Diagnosis No VTE Type NONE VTE Confirmed by (Test) NONE Discharge Core Measures - Per Current guidelines, there needs to be overlap - treatment for the first 5 days of Warfarin therapy. - If discharged on Warfarin prior to 5 days of - overlap therapy, the patient will need to be - assessed for post discharge needs including - *Post discharge parental anticoagulation - *Warfarin and/or parental anticoagulation education - *Follow up date to check INR post discharge At least 5 days overlap therapy as Inpatient No Meds if any: Prescribed or Continued at Discharge Note: Overlap Therapy is Warfarin and Anticoagulant Meds if any: NOT Prescribed or Continued at Discharge
--- NOTE | 2018-03-13 16:34 | Discharge Summary ---
Visit Information Visit Dates Admission Date: 03/12/18 Discharge Date: 03/13/18 Hospital Course Course Attending Physician: Dano Macedo MD Primary Care Physician: Adriana RODRIGUEZ,James Marshall Consulting Request: Consulting Specialty: Orthopedics Consulting Physician: Dr. Carpio Hospital Course: Patient is an 83-year-old female with past medical history of hypertension, celiac disease, Waldenstrm's macroglobulinemia, Osteoporosis with stable T10, L1 and L4 compression fracture, history of left hip fracture s/p IM nail (January 2018), recently discharged from [facility] now presenting this admission for severe lower back pain associated with numbness and tingling in her right foot and unable to get out of bed. On admission: Vitals: T: 96.8, HR: 84, RR: 20, BP: 129/61, Pulse oximetry: 89% 2 /96% 3L Labs: CBC and CMP within normal limits Imaging: CXR: No acute cardiopulmonary disease. CT Lumbar Spine: There are new compression fractures of the L2 and L3 vertebral bodies. There is 20% vertebral body height loss at L2 and 30% vertebral height loss at L3. No overt retropulsion of posterior cortex at either of these 2 levels. Grossly no evidence of canal or neuroforaminal compromise within the lumbar spine. Existing compression deformities of the L1 and L4 vertebral bodies remain unchanged. CTA: 1. No CT evidence of pulmonary embolism. 2. Interval development of approximately 1 cm nonspecific peripheral nodular opacity identified within the right upper to mid hemithorax, may represent atelectasis, infiltrate, subtle pleural thickening or combination thereof and less likely to be evolving neoplasm, new since 04/18/2017. 3. New airspace disease at right lower lobe of the lung with trace amount of right-sided pleural effusion. 4. Evidence of intrahepatic air, may represent portal venous gas versus pneumobilia. Followup dedicated CT scan of the abdomen and pelvis with intravenous contrast may be considered for further clarification, if clinically appropriate. Patient was admitted to the general medical floor for management of the followin. Gait Instability and Intractable Back Pain 2/2 L2 and L3 acute compression fractures Patient recently discharged from [facility] 1 week prior. Presented with severe back pain and numbness of her right lower extremity. Imaging showed acute lumbar compression fractures with previous stable fractures. She was evaluated by orthopedic surgeon and was managed conservatively with physical therapy and pain control with lidocaine patch, tylenol and celebrex. - Please avoid narcotics as she becomes delirious. - Continue pain control with: lidocaine patch, tylenol and celebrex - Monitor creatinine on celebrex - Follow up with orthopedic surgeon for possible brace 2. Acute Hypoxic Respiratory Failure- multifactorial due to severe kyphosis and atelectasis. There were no clinical signs of infection. On presentation patient desatted to the 80s on 2L NC. Patient had a CTA which ruled out PE. - taper oxygen as tolerated to maintain oxygen saturation of >92% - continue using incentive spirometry 3. Severe Osteoporosis. With multiple compression fractures. Patient is currently on vitamin D and calcium. Not clear if she has ever had treatment with bisphosphonates in the past. - continue calcium and vitamin D supplementation - consider alternative treatments for osteoporosis, however may not be beneficial at this point 4. History of Waldenstrom's Macroglobulinemia. Patient follows up with Dr. Hannah and reports she is not currently on active treatment. - Follow up with Dr. Hannah outpatient 5. Chronic conditions including HTN, GERD, HLD - Continue metoprolol, omepraxole, fenofibrate and lovastatin 6. CTA scan done for hypoxia incidentally showed possible air in the intrahepatic duct. Patient had a benign abdominal exam and further evaluation was not required after speaking with surgery. Code: Full Code Diet: Gluten Free (celiac) DVT PPx: Heparin SQ Allergies: Coded Allergies: gluten (CELIAC 05/10/17) phenobarbital (HIVES 05/10/17) Pertinent Lab Results: SERVICE DATE: 03/12/18 EXAM TYPE: RAD - XRY-PORTABLE CHEST XRAY EXAMINATION: XR PORTABLE CHEST CLINICAL INFORMATION: Shortness of breath. COMPARISON: Chest done on 03/20/2013 and 01/28/2018. TECHNIQUE: Portable frontal view of the chest was obtained. FINDINGS: Asymmetric low-lung volume is noted within the right hemithorax with stable curvilinear presumed pleuroparenchymal scar at right peg-ua-[id number] lung field with asymmetric prominence of the right perihilar region, unchanged since the available chest radiograph done on 03/20/2013. Specifically, the aerated lung hernandez bilaterally appear clear. The cardiomediastinal silhouette is remarkable for undulated tortuous descending thoracic aorta, unchanged. There is no pleural effusion present. Incidental note is made of a subcentimeter presumed bone island involving the right scapula, unchanged. IMPRESSION: No acute cardiopulmonary disease. SERVICE DATE: 03/12/18 EXAM TYPE: CAT - CT LUMB SPINE WO IV CONTRAST EXAMINATION: CT LUMBAR SPINE WITHOUT CONTRAST CLINICAL INFORMATION: Low back pain. Recent fractures. Lower extremity weakness. COMPARISON: Lumbar spine CT scan 01/26/2018. TECHNIQUE: Sales Development Manager images were obtained. A CT acquisition of the lumbar spine was performed without intravenous administration of contrast. Data was reformatted into multiplanar images at the acquisition workstation. DLP: 166.42 mGy-cm FINDINGS: Known compression deformities of the L1 and L4 vertebral bodies are redemonstrated. There are new compression fractures of the L2 and L3 vertebral bodies. Specifically at L2 there is subtle impaction upper endplate resulting in 20% vertebral body height loss centrally. At L3 there is impaction of the lower endplate causing 30% vertebral body height loss centrally. No overt retropulsion of posterior cortex at either of these 2 levels. Grossly no evidence of canal compromise. Sacroiliac joints are symmetric. No evidence of acute sacral fracture. Limited visualization of the retroperitoneal structures reveals atherosclerotic calcification within the abdominal aorta and iliac vessels. Grossly no paraspinal soft tissue mass. IMPRESSION: There are new compression fractures of the L2 and L3 vertebral bodies. There is 20% vertebral body height loss at L2 and 30% vertebral height loss at L3. No overt retropulsion of posterior cortex at either of these 2 levels. Grossly no evidence of canal or neuroforaminal compromise within the lumbar spine. Existing compression deformities of the L1 and L4 vertebral bodies remain unchanged. SERVICE DATE: 03/12/181216 EXAM TYPE: CAT - CTA CHEST-PULMONARY EMBOLISM EXAMINATION: CT ANGIOGRAM OF THE CHEST WITH AND WITHOUT CONTRAST (CT PULMONARY ANGIOGRAM FOR PE) CLINICAL INFORMATION: Hypoxia. Rule out PE. COMPARISON: CT of the chest done on 04/18/[address] of the abdomen and pelvis done on 05/10/2017. TECHNIQUE: Prior to contrast administration, noncontrast localization images were obtained. Subsequently, multidetector volumetric imaging was performed from the thoracic inlet to below the diaphragms following the administration of 95 mL Optiray 320 intravenous contrast. No contrast reaction reported. Sagittal, coronal, and MIP oblique sagittal reformatted images were obtained on the CT workstation, uploaded to PACS, and reviewed. DLP: 166.4 mGy-cm FINDINGS: QUALITY OF STUDY/CONTRAST BOLUS: Satisfactory. PULMONARY ARTERIES: No central or segmental pulmonary emboli. THORACIC AORTA: Atherosclerotic disease is noted within the aorta and its branches without evidence of any aneurysm formation. Coronary arterial calcifications are noted. LUNG: Linear airspace disease is noted around the right major fissure, most consistent with pleural parenchymal scar, atelectasis, appears similar to prior study dated 04/18/2017. Approximately 1 cm pleural-based nonspecific nodular opacity is noted along the posterior, medial, superior aspect of the right hemithorax, in the region of the superior segment of right lower lobe of the lung, may represent atelectasis, infiltrate, subtle pleural thickening or combination thereof and less likely to be evolving neoplasm. Followup imaging to document resolution is recommended (see the thompson images). Interval development of nonspecific airspace disease is also noted at right lower lobe of the lung likely represents compressive atelectasis from asymmetric elevated right hemidiaphragm. The remainder of the lung hernandez are clear. The tracheobronchial tree appears patent. PLEURA: Trace amount of right-sided pleural effusion, thickening is noted, new since prior study. MEDIASTINUM: Normal heart size. No pericardial effusion. No hilar or mediastinal lymphadenopathy. No evidence of septal bowing or right heart strain. CHEST WALL/AXILLA: No axillary or internal mammary lymphadenopathy. OSSEOUS STRUCTURES: Interval development of severe compression fracture of T10 vertebral body is noted. Previously documented severe compression fracture of L1 vertebral body appears stable. Mild diffuse osteopenia is noted involving all the visualized bones. UPPER ABDOMEN: Interval development of air is noted within the liver, shows linear branching pattern, extends to the surface of the liver, mostly localized to the left lobe, may represent portal venous gas versus pneumobilia. No reflux of contrast into the hepatic veins to suggest elevated right heart pressures. IMPRESSION: 1. No CT evidence of pulmonary embolism. 2. Interval development of approximately 1 cm nonspecific peripheral nodular opacity identified within the right upper to mid hemithorax, may represent atelectasis, infiltrate, subtle pleural thickening or combination thereof and less likely to be evolving neoplasm, new since 04/18/2017. 3. New airspace disease at right lower lobe of the lung with trace amount of right-sided pleural effusion. 4. Evidence of intrahepatic air, may represent portal venous gas versus pneumobilia. Followup dedicated CT scan of the abdomen and pelvis with intravenous contrast may be considered for further clarification, if clinically appropriate. VTE: Negative. Disposition Summary Disposition Principal Diagnosis: Acute Lumbar Compression Fractures Additional Diagnosis: Acute Hypoxic Respiratory Failure, Severe Osteoporosis, Previous Lumbar and Thoracic Compression Fractures, H/O Waldenstorm's Macroglobulinemia Discharge Disposition: SNF Discharge Instructions General Discharge Information Code Status: Full Code Patient's Diet: Gluten Free Diet Patient's Activity: Self-limited Follow-Up Instructions/Appts: Follow up with orthopedic surgeon and pcp Follow up with Medications at Discharge Discharge Medications: Continue taking these medications: Lovastatin (Lovastatin) 40 MG TABLET 1 Tablet ORAL DAILY Instructions: with food Comments: GIVEN LIPITOR 03/13/18 4:00 PM Fenofibrate Nanocrystallized (Fenofibrate) 145 MG TABLET 1 Tablet ORAL DAILY Comments: NOT TAKEN AT THE HOSPITAL Furosemide (Furosemide) 20 MG TABLET 1 Tablet ORAL TWICE DAILY Comments: Last Taken: 03/13/18 Time: 10:30 AM Aspirin (Ecotrin*) 81 MG TABLET.DR 1 Tablet ORAL TWICE DAILY Comments: Last Taken: 03/13/18 Time: 10:30 AM Magnesium Oxide (Magnesium) 250 MG TABLET 1 Tablet ORAL TWICE DAILY Comments: Last Taken: 03/13/18 Time: 10:40 AM Metoprolol Tartrate (Metoprolol Tartrate) 25 MG TABLET 1 Tablet ORAL TWICE DAILY Qty = 180 Comments: Last Taken: 03/13/18 Time: 10:30 AM Cholecalciferol (Vitamin D3) (Vitamin D3) 2,000 UNIT TABLET 1 Tablet ORAL DAILY Comments: NOT TAKEN AT THE HOSPITAL Omeprazole (Omeprazole) 20 MG CAPSULE.DR 1 Capsule ORAL DAILY Comments: Last Taken: 03/13/18 Time: 5:20 AM Start taking the following new medications: Celecoxib (Celebrex) 100 MG CAPSULE 100 Milligram ORAL TWICE DAILY Qty = 30 No Refills Comments: Last Taken: 03/13/18 Time: 12:45 PM Acetaminophen (Tylenol) 325 MG TABLET 650 Milligram ORAL 4 times daily as needed as needed for BACK PAIN Qty = 30 No Refills Lidocaine (Lidoderm) 5 % ADH..PATCH 1 Patch On the skin DAILY Qty = 30 No Refills Instructions: Wear for 12 hours and keep off for 12 hours Comments: Last Taken: 03/13/18 Time: 10:30 AM Copies To: Adriana RODRIGUEZ,James K. Attending MD Review Statement Documenting Attending: Dano Macedo MD Other Findings: Agree with the above summary of care and plan of care. The patient was still on oxygen at the time of discharge with PO 98%. Needs to be tapered as OP. Suspect hypoxemia is related to kyphosis/restrictive lung disease and atelectasis. Requesting incentive spirometry. CTPA was negative on admission.
== END 2018-03-13 18:03 ==
LOC: ERH 09:23 → 2NA 13:24 → ERHI 13:24 → ENRESERV 13:50 → ENTRNSPT 16:30 → EDTRNSPTSTS 16:46 → EDTRNSPT 16:46 → 2NA 16:52 → CMPTRNSPT 17:01 → ENTRNSPT 18:09 → CMPTRNSPT 18:20 → 2NA 03-13 18:03
PROVIDERS: Internal Medicine; Physician Assistant Medical
DX: M48.56XD Collapsed vertebra, not elsewhere classified, lumbar region, subsequent encounter for fracture with routine healing (principal); J96.01 Acute respiratory failure with hypoxia; M81.0 Age-related osteoporosis without current pathological fracture; Z85.79 Personal history of other malignant neoplasms of lymphoid, hematopoietic and related tissues; I25.10 Atherosclerotic heart disease of native coronary artery without angina pectoris; E78.5 Hyperlipidemia, unspecified; K90.0 Celiac disease; I25.2 Old myocardial infarction
CPT/HCPCS: 1328; 1530; 1748; 36592; 71045; 81001; 82436; 93005; 93010; 96372; 97161-GP; 97165-GO; 97530-GP; G0378; G8978-GP; G8979-GP; J1644

== ENCOUNTER 2018-04-24 19:47 | Emergency (ER) | payer OTHER, MEDICARE ==
[~2018-04-24] VITALS: Ht 152.4 cm; Wt 35.8 kg
[~2018-04-24 19:47] MED LIST changes: +CELEBREX100 M1 PO; +MAGNESIUM OXID400 M1 PO; -MAGNESIUM250 M2 PO
--- NOTE | 2018-04-24 21:10 | ED NECK/BACK PAIN COMPLAINT ---
See Addendum History of Present Illness General Chief Complaint: Low Back Pain/Injury Stated Complaint: MALIK LOW BACK PAIN Source: patient, family, old records Exam Limitations: no limitations Vital Signs & Intake/Output Vital Signs & Intake/Output Vital Signs Date Time Temp Pulse Resp B/P B/P Pulse O2 O2 Flow FiO2 Mean Ox Delivery Rate 04/25 0830 98.2 98 15 145/65 88 Room Air 04/25 0645 96.0 82 20 142/73 95 Room Air 04/25 0453 Room Air 04/25 0052 72 20 109/56 95 Room Air 04/24 2302 68 18 115/57 99 Room Air 04/24 1948 98.1 78 16 108/78 96 Room Air ED Intake and Output 04/25 0000 04/24 1200 Intake Total Output Total Balance Patient 79 lb 0.01 oz Weight Weight Reported by Patient Measurement Method Allergies Coded Allergies: gluten (CELIAC 05/10/17) phenobarbital (HIVES 05/10/17) Reconcile Medications Acetaminophen (Tylenol) 325 MG TABLET 650 MG PO 4XDP PRN BACK PAIN Aspirin (Ecotrin*) 81 MG TABLET.DR 1 TAB PO BID HEART HEALTH (Reported) Celecoxib (Celebrex) 100 MG CAPSULE 100 MG PO BID BACK PAIN Cholecalciferol (Vitamin D3) (Vitamin D3) 2,000 UNIT TABLET 1 TAB PO DAILY VITAMIN SUPPORT (Reported) Fenofibrate Nanocrystallized (Fenofibrate) 145 MG TABLET 1 TAB PO DAILY TRIGLYCERIDES (Reported) Furosemide 20 MG TABLET 1 TAB PO BID WATER RETENTION (Reported) Lidocaine (Lidoderm) 5 % ADH..PATCH 1 PAT TOP DAILY BACK PAIN Wear for 12 hours and keep off for 12 hours Lovastatin 40 MG TABLET 1 TAB PO DAILY CHOLESTEROL (Reported) with food Magnesium Oxide (Magnesium) 250 MG TABLET 1 TAB PO BID SUPPLEMENT (Reported) Metoprolol Tartrate 25 MG TABLET 1 TAB PO BID HEART (Reported) Omeprazole 20 MG CAPSULE.DR 1 CAP PO DAILY GI (Reported) Triage Note: MALIK FROM HOME WITH C/O INTERMITTENT LOW BACK PAIN. PATIENT STATES SHE HAS A HISTORY OF CHRONIC LOW BACK PAIN AND SELF-MANAGES HER PAIN AT HOME HOWEVER TONIGHT THE PAIN WILL NOT SUBSIDE. PATIENT DENIES FALL OR OTHER INJURY. Triage Nurses Notes Reviewed? yes Onset: Gradual Duration: week(s): Timing: recent history Quality/Severity: moderate Location: T-spine, lumbar spine HPI: 83-year-old female with history of multiple compression fractures presents to emergency department from home complaining of worsening thoracic and lumbar back pain today. states that the patient was trying to get up to go to dinner and had increasing pain. He did give her tramadol around 3:15 today. He walks with a walker however today her movement has been limited due to her back pain. Patient was just discharged from rehabilitation 2 weeks ago for her compression fractures. She is receiving home health services including physical therapy at home for her back pain. There is no recent fall or trauma. The patient denies new urinary incontinence, numbness, tingling, abdominal pain. (Marjorie Ritchie) Past History Travel History Traveled to [place] past 21 day No Medical History Any Pertinent Medical History? 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 No (Marjorie Ritchie) Review of Systems Review of Systems Constitutional: Reports: no symptoms. Eyes: Reports: no symptoms. Ears, Nose, Throat, Mouth: Reports: no symptoms. Respiratory: Reports: no symptoms. Cardiovascular: Reports: no symptoms. Gastrointestinal/Abdominal: Reports: no symptoms. Musculoskeletal: Reports: see HPI. Skin: Reports: no symptoms. Neurological/Psychological: Reports: no symptoms. All Other Systems: Reviewed and Negative (Marjorie Ritchie) Physical Exam Physical Exam General Appearance: well developed/nourished, no apparent distress, alert, awake Head: atraumatic, normal appearance Eyes: Bilateral: normal appearance. Ears, Nose, Throat, Mouth: hearing grossly normal Neck: normal inspection, supple, full range of motion Respiratory: no respiratory distress Gastrointestinal: soft, non-tender Back: thoracic and lumbar tenderness Extremities: normal range of motion Straight Leg Raising: Right: Negative. Left: Negative. Sensory: Medial Le: L4R, L4L. Top of Foot: 2: L5R, L5L. Sole of Foot: 2: SIR, ANTONY. Neurologic/Psych: awake, alert, oriented x 3 Skin: intact, normal color, warm/dry Core Measures CVA/TIA Diagnosis: No (Judith GALLEGOS,Marjorie Montero) Progress Differential Diagnosis: cauda equina syn, herniated disc, myofascial strain, sciatica, spinal cord inj, T/L spine injury Plan of Care: Orders Procedure Date/time Status Regular Diet 04/25 B Active URINALYSIS 04/25 543 Complete PT Evaluate & Treat 04/25 39 Active CASE MANAGEMENT CONSULT 04/25 39 Active TROPONIN LEVEL 04/24 2303 Complete COMPREHENSIVE METABOLIC PANEL 04/24 2303 Complete CBC WITHOUT DIFFERENTIAL 04/24 2303 Complete B-TYPE NATRIURETIC PEP (BNP) 04/24 2303 Complete EKG 04/24 2303 Active Laboratory Tests 04/25/18 0546: Urine Color YEL, Urine Clarity CLEAR, Urine pH 6.0, Ur Specific [place] >= 1.030 , Urine Protein NEG, Urine Ketones NEG, Urine Nitrite NEG, Urine Bilirubin NEG, Urine Urobilinogen 0.2, Ur Leukocyte Esterase NEG, Ur Microscopic EXAM NOT REQUIRED, Urine Hemoglobin NEG, Urine Glucose NEG 04/24/18 2312: Anion Gap 7, Estimated GFR > 60, BUN/Creatinine Ratio 56.7 H, Glucose 122 H, Calcium 8.4, Total Bilirubin 0.3, AST 21, ALT 40, Alkaline Phosphatase 53, Troponin I < 0.01, Rof-V-Jhznftqzxbc Pept 1270 H, Total Protein 5.8 L, Albumin 3.3 L, Globulin 2.5, Albumin/Globulin Ratio 1.3, CBC w Diff NO MAN DIFF REQ, RBC 4.51, MCV 87.6, MCH 28.2, MCHC 32.2 L, RDW 16.7 H, MPV 8.2, Gran % 79.6 H , Lymphocytes % 12.1 L, Monocytes % 7.5, Eosinophils % 0.7, Basophils % 0.1, Absolute Granulocytes 6.0, Absolute Lymphocytes 0.9 L, Absolute Monocytes 0.6, Absolute Eosinophils 0.1, Absolute Basophils 0 Patient medicated with tramadol here, she does take this medication at home. This had recent lumbar CT imaging. We will obtain x-rays at this time and evaluate her when she ambulates. At rest the patient reports her back pain is 0 , pain increases when she moves. Dr. Lala agrees with this plan. X-rays show multiple compression fractures which are stable compared to previous studies. Radiologist recommends MRI if indicated for severe/worsening back pain. She ambulated here in the emergency department and is able to walk however the patient and her do not feel comfortable with her going home given that they have 13 stairs at home. Patient's that she will not be able to get up the stairs. Patient was signed out to Dr. Lala pending case management/Pt evaluation Diagnostic Imaging: Viewed by Me: Radiology Read. Discussed w/RAD: Radiology Read. Radiology Impression: PATIENT: JOO VICENTE PRESENT AGE: 83 PATIENT ACCOUNT NO: [id number] : 37 LOCATION: [facility] ORDERING PHYSICIAN: Marjorie GALLEGOS SERVICE DATE: 04/24/18 EXAM TYPE: RAD - XRY-LUMBOSACRAL SPINE 4 VIEWS; XRY-THORACIC SPINE EXAMINATION: XR THORACIC SPINE XR LUMBAR SPINE CLINICAL INFORMATION: Worsening back pain. COMPARISON: CTA chest , CT lumbar spine dated March 12. TECHNIQUE: 2 views views of the thoracic spine were obtained. 4 views of the lumbosacral spine. FINDINGS: LUMBOSACRAL SPINE: A compression fracture is seen involving L1 which appears similar to that seen previously. Compression fracture at L4 also seen similar to that noted previously. There are mild compression fractures involving L2 and L3 which appear unchanged from the prior study. At the time of the prior exam however, these findings were felt to be new. Given the fact that pain is worsening, an MRI may be indicated to see if there is edema that could respond to kyphoplasty. Marked degenerative change is present in the right hip with near obliteration of the joint space. A screw screw is noted in the left femoral head. THORACIC SPINE : There is a compression fracture involving T10 which is near vertebral plana. Appearances are similar to that noted on the chest CT from 03/12/2018. Lumbar spine fractures are discussed above. There is a thoracic kyphosis but no other marked compression fractures are seen. IMPRESSION: LUMBAR: Subacute new compression fractures L2 and L3 with worsening back pain. MRI may be indicated to see if there is edema which could be responsive to kyphoplasty. No change in the appearance of the compression fractures involving L1 and L4. THORACIC: No significant change in appearances. Near vertebral plana involving T10. DICTATED BY: Olayinka Hurley MD DATE/TIME DICTATED:04/24/182200 SENIOR ENGINEERING TEAM LEADER: KELVIN DATE/TIME TRANSCRIBED:04/24/182200 CONFIDENTIAL, DO NOT COPY WITHOUT APPROPRIATE AUTHORIZATION. <Electronically signed in Other Vendor System> SIGNED BY: Olayinka Hurley MD 04/24/182239 Hand-Off Endorsed To: Tonio Lala MD Endorsed Time: 2301 Pending: consult (pt/case management) (Marjorie Ritchie) Hand-Off Endorsed To: Juwan Yap DO Endorsed Time: 07 Pending: consult (pt/case mgmt) (Tonio Lala MD) Departure Departure Disposition: STILL A PATIENT Condition: Stable Clinical Impression Primary Impression: Back pain Referrals: James Wright MD (PCP/Family) Additional Instructions: Continue tramadol as prescribed. Follow-up with your specialist. Return if worsening symptoms or concerns. Please note that there might be incidental findings in your evaluation that are unrelated to the current emergency department visit. Please notify your primary care doctor about this emergency department visit in order to obtain and review all of the testing performed so that these incidental findings can be monitored as needed. If you had an x-ray performed, please understand that some fractures may not be seen on the initial set of x-rays. If your symptoms persist you might need a repeat set of x-rays to check for such a fracture. If you had a laceration evaluated, please understand that foreign bodies such as glass or wood may not be visible to the naked eye or on plain x-rays. If the wound becomes red, swollen, increasingly more painful or if there is any drainage from the wound, please have it reevaluated by a physician for the possibility of a retained foreign body. If you're unable to follow up as outlined in the discharge instructions please return to the emergency department. Thank you for choosing the [facility] Emergency Department for your care. It was a pleasure to serve you today. Departure Forms: Customer Survey General Discharge Information (Judith GALLEGOS,Marjorie Montero) PA/TRANSIT VEHICLE INSPECTOR Co-Sign Statement Statement: ED Attending supervision documentation- x I saw and evaluated the patient. I have also reviewed all the pertinent lab results and diagnostic results. I agree with the findings and the plan of care as documented in the PA's/TRANSIT VEHICLE INSPECTOR's documentation. [] I have reviewed the ED Record and agree with the PA's/TRANSIT VEHICLE INSPECTOR's documentation. [] Additions or exceptions (if any) to the PAs/TRANSIT VEHICLE INSPECTOR's note and plan are summarized below: [] (Spike RODRIGUEZ,Tonio) Departure Comments 04/25/18 10:35 AM The patient was signed out to me by Dr. Lala, 83-year-old female with compression fractures. She is pending disposition by case management. (Juwan Yap DO)
--- NOTE | 2018-04-24 22:40 | RADIOLOGY REPORT ---
EXAMINATION: XR THORACIC SPINE XR LUMBAR SPINE CLINICAL INFORMATION: Worsening back pain. COMPARISON: CTA chest, CT lumbar spine dated March 12. TECHNIQUE: 2 views views of the thoracic spine were obtained. 4 views of the lumbosacral spine. FINDINGS: LUMBOSACRAL SPINE: A compression fracture is seen involving L1 which appears similar to that seen previously. Compression fracture at L4 also seen similar to that noted previously. There are mild compression fractures involving L2 and L3 which appear unchanged from the prior study. At the time of the prior exam however, these findings were felt to be new. Given the fact that pain is worsening, an MRI may be indicated to see if there is edema that could respond to kyphoplasty. Marked degenerative change is present in the right hip with near obliteration of the joint space. A screw screw is noted in the left femoral head. THORACIC SPINE: There is a compression fracture involving T10 which is near vertebral plana. Appearances are similar to that noted on the chest CT from 03/12/2018. Lumbar spine fractures are discussed above. There is a thoracic kyphosis but no other marked compression fractures are seen. IMPRESSION: LUMBAR: Subacute new compression fractures L2 and L3 with worsening back pain. MRI may be indicated to see if there is edema which could be responsive to kyphoplasty. No change in the appearance of the compression fractures involving L1 and L4. THORACIC: No significant change in appearances. Near vertebral plana involving T10.
[2018-04-24 23:22] LABS: ABSOLUTE BASOPHIL COUNT 0 /CUMM (0.0-0.2); ABSOLUTE EOSINOPHIL COUNT 0.1 /CUMM (0.0-0.7); ABSOLUTE LYMPH COUNT 0.9 /CUMM (1.2-3.4); ABSOLUTE MONOCYTE COUNT 0.6 /CUMM (0.10-0.60); BASOPHIL % 0.1 % (0.0-2.0); EOSINOPHIL % 0.7 % (0-5); GRANULOCYTE % 79.6 % (42.2-75.2); HEMATOCRIT 39.5 % (37-47); MEAN CORPUSCULAR HGB 28.2 PG (27.0-31.0); MEAN CORPUSCULAR HGB CONC 32.2 G/DL (33.0-37.0); MEAN CORPUSCULAR VOLUME 87.6 FL (81.0-99.0); MEAN PLATELET VOLUME 8.2 FL (7.4-10.4); PLATELET COUNT 342 /CUMM (130-400); RBC DISTRIBUTION WIDTH 16.7 % (11.5-14.5); RED BLOOD CELL CT 4.51 /CUMM (4.20-5.40); WHITE BLOOD CELL COUNT 7.6 /CUMM (4.8-10.8)
[2018-04-25] MEDS ORDERED: ULTRAM50 M1 PO (12:57)
[2018-04-25] MEDS ORDERED: SALONPAS PATCH1 EAC1 TOP (12:57)
[2018-04-25 14:09] VITALS: BP 132/84
== END 2018-04-25 14:10 ==
LOC: ERH 19:47
PROVIDERS: Physician Assistant
DX: M54.5 Low back pain (principal)
CPT/HCPCS: 72070; 72110; 81003; 93005; 93010; 97116-GP; 97161-GP; 97530-GP; G8978-GP; G8979-GP